=== PATIENT | female | born 1955 | race Two or more races ===

== ENCOUNTER → 2025-01-17 | Outpatient (CLI) | payer MEDICAID, SELFPAY ==
--- NOTE | 2025-01-17 14:38 | XR_ITS ---
Examination: Abdomen sonogram, Limited Date and time of exam: January 17, 2025 1508 hrs. Indications: Abdominal pain and distention this week Technique: Real-time hunter scale transabdominal sonographic images of the upper abdomen obtained. Findings: Minimal ascitic fluid Impression: Minimal ascitic fluid
== END | disposition home or self-care (01) ==
LOC: SDIM 14:35 → SIRX 15:03
PROVIDERS: PCP Internal Medicine Nephrology; Referring Provider Internal Medicine Nephrology; Visit Provider Internal Medicine Nephrology
DX: R18.8 Other ascites (principal); Z53.8 Procedure and treatment not carried out for other reasons
CPT/HCPCS: 76705

== ENCOUNTER 2025-02-19 15:17 | Inpatient (IN) | payer MEDICAID, SELFPAY ==
[2025-02-19] VITALS (10 sets, daily range): BP systolic 180–211; BP diastolic 76–133; PULSE 65–83; RESP 16–97; TEMP 36.6–36.7; O2SAT 95–97; BMI 30.9
--- NOTE | 2025-02-19 15:41 | EKG_ITS ---
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
--- NOTE | 2025-02-19 15:41 | XR_ITS ---
Examination: PA lateral chest 2 views Technique: Upright PA lateral chest 2 views Exam date and time: March 21, 2025 1626 hrs. Indications: Chest pain shortness of breath today. Findings: Moderate CHF Mild enlargement cardiac contour Prominent vascular congestion with perihilar basilar edema Bilateral moderate to large pleural effusions Impression: Moderate CHF
--- NOTE | 2025-02-19 15:41 | PD.EDRME ---
Rapid Medical Screening Exam RME Arrival date/time: 02/19/25 15:17 69-year-old female with a history of hyperlipidemia, hypertension, type 2 diabetes presents to the emergency room with a chief complaint of bilateral lower extremity swelling, shortness of breath, increased fatigue x 3 days. I have greeted and performed a focused initial assessment of this patient. A comprehensive ED assessment and evaluation of the patient, analysis of all test results, and completion of the medical decision making process will be conducted by additional ED providers. Chief Complaint: General Adult/Misc Complain Time Seen by Provider: 02/19/25 15:18 Vital signs: Vital Signs Temperature 97.8 F 02/19/25 15:24 Pulse Rate 65 02/19/25 15:24 Respiratory Rate 18 02/19/25 15:24 Blood Pressure 194/76 H 02/19/25 15:24 Pulse Oximetry (%) 95 02/19/25 15:24 Oxygen Delivery Method Room Air 02/19/25 15:24 Vital signs reviewed by provider: Yes
[2025-02-19 16:13] LABS: Basophils % (Auto) 0 % (0-2.5); Eosinophils # (Auto) 0.1 Thou/mm3 (0.0-0.5); Eosinophils % (Auto) 1 % (0-10); Hematocrit 29.5 % (36.0-46.0); Hemoglobin 10.3 g/dL (12.0-16.0); Immature Granulocytes % (Auto) 0 % (0-0); Immature Granulocytes Auto 0.01 Thou/mm3 (0.00-0.00); Lymphocytes # (Auto) 1.1 Thou/mm3 (1.0-4.8); Lymphocytes % (Auto) 16 % (10-50); Mean Corpuscular HGB Conc 34.9 g/dl (31.0-37.0); Mean Corpuscular Hemoglobin 30.5 pg (25.0-35.0); Mean Corpuscular Volume 87 fL (80-100); Monocytes # (Auto) 0.5 Thou/mm3 (0.0-0.8); Monocytes % (Auto) 7 % (0-12); Neutrophils # (Auto) 5.2 Thou/mm3 (1.8-7.7); Neutrophils % (Auto) 76 % (37-80); Nucleated Red Blood Cell % 0 /100 WBC (0); Platelet Count 185 Thou/mm3 (140-440); RDW Standard Deviation 40.6 fL (36.4-46.3); Red Blood Count 3.38 Miln/mm3 (4.00-5.20); White Blood Count 6.8 Thou/mm3 (3.6-11.0)
[2025-02-19 16:32] LABS: INR 1.2 (0.9-1.3); Partial Thromboplastin Time 30.2 Seconds (22.0-36.0); Prothrombin Time 13.3 Seconds (9.0-12.2)
[2025-02-19 16:53] LABS: Alanine Aminotransferase 8 U/L (10-49); Albumin/Globulin Ratio 1.7 (1.2-2.2); Alkaline Phosphatase 78 U/L (46-116); Anion Gap 10 (7-16); Aspartate Amino Transferase 16 U/L (0-34); BUN/Creatinine Ratio 18 Ratio (12-20); Bilirubin,Total 0.6 mg/dL (0.3-1.2); Blood Urea Nitrogen 52 mg/dL (9-23); Calcium 8.4 mg/dL (8.3-10.6); Calcium (Corrected) 8.4 mg/dL (8.5-10.1); Chloride 90 mMol/L (98-107); Creatinine (Component) 2.9 mg/dL (0.6-1.3); Estimated Creatinine Clearance 15.8 mL/min (>60); Globulin 2.3 gm/dL (2.3-3.5); Glucose 125 mg/dL (74-106); LDH (Lactate Dehydrogenase) 282 U/L (120-246); Magnesium 1.4 mg/dL (1.6-2.6); Osmolality,Calculated 264 (275-295); Potassium 3.2 mMol/L (3.4-5.1); Sodium 124 mMol/L (136-145); Total Protein 6.3 gm/dL (5.7-8.2); Troponin I 0.043 ng/mL (0.0-0.045); eGFR 17 See Note
[2025-02-19 16:55] LABS: B-Type Natriuretic Peptide > 3280 pg/mL (0-100)
[2025-02-19 17:28] LABS: Collection Type, Urine Clean Catch
[2025-02-19 17:41] LABS: Bilirubin,Urine Negative (Negative); Blood,Urine 1+ (Negative); Clarity,Urine Clear (Clear/Hazy); Color,Urine Lt-Yellow (Lt Yel-Yel); Glucose, Urine Negative (Negative); Ketones,Urine Negative (Negative); Leukocyte Esterase,Urine Positive (Negative); Nitrite,Urine Negative (Negative); Protein,Urine 3+ (Neg - Trace); RBC,Urine 7 /hpf (0-3); Specific Gravity,Urine 1.012 (1.001-1.035); Squamous Epithelial Cell,Urine 2 /hpf (0-5); Urobilinogen,Urine Negative mg/dL (0.0-1.0); WBC,Urine 24 /hpf (0-5)
--- NOTE | 2025-02-19 18:31 | PD.EDADULT ---
ED General RME/HPI General Chief complaint: General Adult/Misc Complain Stated complaint: SENT BY PCP DUE TO BLE EDEMA Time Seen by Provider: 02/19/25 15:18 Arrival date/time: 02/19/25 15:17 RME / HPI RME / HPI narrative: 69-year-old female with a history of hyperlipidemia, hypertension, type 2 diabetes, history of combined mild systolic and diastolic CHF, EF 50% on last echo, mild pulm hypertension, chronic renal sufficiency, non-STEMI May 2024, presented to the emergency department with bilateral lower extremity swelling. Related Data Home Medications ?Medication ?Instructions ?Recorded ?Confirmed metformin 500 mg tablet 500 mg PO BID 03/29/24 05/10/24 atorvastatin 40 mg tablet 40 mg PO QDAY 06/19/24 06/19/24 empagliflozin 10 mg tablet 10 mg PO QDAY 06/19/24 06/19/24 (Jardiance) levothyroxine 50 mcg capsule 50 mcg PO QDAY 06/19/24 06/19/24 sitagliptin phosphate 50 mg tablet 50 mg PO QDAY 06/19/24 06/19/24 (Januvia) vitamin B complex-vitamin C-folic 1 tab PO QDAY 06/19/24 06/19/24 acid 0.8 mg tablet (Renal-Adriel) Previous Rx's ?Medication ?Instructions ?Recorded aluminum-mag hydroxide-simethicone 30 ml PO TID #3,000 mL 04/18/24 200 mg-200 mg-20 mg/5 mL oral susp (Mag-Al Plus) blood sugar diagnostic (Accu-Chek #100 04/18/24 Guide test strips) lancets-blood glucose test #1 04/18/24 strips-pen needles with gauze kit pantoprazole 40 mg tablet,delayed 40 mg PO QDAY #30 tabs 04/18/24 release pen needle, diabetic 29 gauge x #100 04/18/24 1/2 (BD Ultra-Fine Original Pen Needle) sitagliptin phosphate 50 mg tablet 50 mg PO QDAY #30 tabs 04/18/24 (Januvia) doxycycline hyclate 100 mg tablet 100 mg PO BID #10 tabs 05/13/24 furosemide 40 mg tablet (Lasix) 40 mg PO QDAY #30 tabs 05/13/24 carvedilol 6.25 mg tablet 6.25 mg PO BID CHF #60 tabs 06/19/24 Allergies Allergy/AdvReac Type Severity Reaction Status Date / Time quetiapine (From Seroquel) AdvReac Severe hypothermia Verified 06/19/24 11:05 Review of Systems Review of Systems Systems Reviewed: All systems reviewed, normal except as documented Course Course Course Narrative: CXR is ordered for determining the etiology of Quality Measures none Orders Category Date Time Status EKG (ED ONLY) *Do not use* NOW Care 02/19/25 15:41 Completed EKG (ED Only) Stat Exams 02/19/25 15:41 Draft XR chest 2V Stat Exams 02/19/25 15:41 Completed B-Type Natriuretic Peptide Stat Lab 02/19/25 15:58 Completed CBC Stat Lab 02/19/25 15:58 Completed Comprehensive Metabolic Panel Stat Lab 02/19/25 15:58 Completed LDH (Lactate Dehydrogenase) Stat Lab 02/19/25 15:58 Completed Magnesium Stat Lab 02/19/25 15:58 Completed Partial Thromboplastin Time Stat Lab 02/19/25 15:58 Completed Prothrombin Time with INR Stat Lab 02/19/25 15:58 Completed Troponin I Stat Lab 02/19/25 15:58 Completed Urinalysis Stat Lab 02/19/25 17:02 Completed Vital Signs Vital signs: Vital Signs Temperature 97.8 F 02/19/25 15:24 Pulse Rate 65 02/19/25 15:24 Respiratory Rate 18 02/19/25 15:24 Blood Pressure 194/76 H 02/19/25 15:24 Pulse Oximetry (%) 95 02/19/25 15:24 Oxygen Delivery Method Room Air 02/19/25 15:24 [facility] Patient data External records reviewed:: [facility] previous records (Per chart review, patient was admitted here on 05/09/24 for acute hyponatremia.) Clinical information provided by:: patient Social determinants that could affect healthcare access:: none Patient has the following chronic illnesses:: DM, HTN, HLD, history of combined mild systolic and diastolic CHF, EF 50% on last echo, mild pulm hypertension, chronic renal sufficiency, non-STEMI May 2024 How is presenting disease/condition affected by chronic disease/condition?: exacerbated by Evaluation data The following diagnostics were reviewed and interpreted by me:: lab results, radiology exam(s) and EKG tracing(s) Lab and/or radiology exams considered but not ordered:: none Interpretation Summary: WBC count is normal, HnH is stable, Sodium is 124, Potassium is 3.2, Chloride is 90, Creatinine is 2.9, BUN is 52, BNP is greater than 3280, according to my interpretation. EKG [facility] Report Signed Patient: BARBARA SMITH. Record#: [id number] Birthdate: 1955 Age/Sex: 69 / F Location: [facility] Attending Dr: Ordering Physician: Boubacar Corcoran Date of Service: 02/19/25 Procedure(s): XR chest 2V Accession Number(s): [id number] cc: Boubacar Corcoran; Mundo Allen MD; Leon Ro MD~ Examination: PA lateral chest 2 views Technique: Upright PA lateral chest 2 views Exam date and time: March 21, 2025 1626 hrs. Indications: Chest pain shortness of breath today. Findings: Moderate CHF Mild enlargement cardiac contour Prominent vascular congestion with perihilar basilar edema Bilateral moderate to large pleural effusions Impression: Moderate CHF Dictated By: Leon Ro MD Signed By: <Electronically signed by Leon Ro MD in OV> 02/19/25 1738 Medications Medications considered but not ordered:: none Medical Decision Making Lab Data 02/19/25 15:58 02/19/25 15:58 Labs: Lab Results 02/19/25 02/19/25 Range/Units 15:58 17:02 WBC 6.8 (3.6-11.0) Thou/mm3 RBC 3.38 L (4.00-5.20) Miln/mm3 Hgb 10.3 L (12.0-16.0) g/dL Hct 29.5 L (36.0-46.0) % MCV 87 (80-100) fL MCH 30.5 (25.0-35.0) pg MCHC 34.9 (31.0-37.0) g/dl RDW Std Deviation 40.6 (36.4-46.3) fL Plt Count 185 (140-440) Thou/mm3 Neut % (Auto) 76 (37-80) % Lymph % (Auto) 16 (10-50) % Waldo % (Auto) 7 (0-12) % Eos % (Auto) 1 (0-10) % Baso % (Auto) 0 (0-2.5) % Neut # (Auto) 5.2 (1.8-7.7) Thou/mm3 Lymph # (Auto) 1.1 (1.0-4.8) Thou/mm3 Waldo # (Auto) 0.5 (0.0-0.8) Thou/mm3 Eos # (Auto) 0.1 (0.0-0.5) Thou/mm3 Baso # (Auto) 0.0 (0.0-0.2) Thou/mm3 Immature Gran # (Auto) 0.01 H (0.00-0.00) Thou/mm3 Absolute Nucleated RBC 0.00 (0.00-0.00) Thou/mm3 Immature Gran % 0 (0-0) % Nucleated RBC % 0 (0) /100 WBC PT 13.3 H (9.0-12.2) Seconds INR 1.2 (0.9-1.3) APTT 30.2 (22.0-36.0) Seconds Sodium 124 L (136-145) mMol/L Potassium 3.2 L (3.4-5.1) mMol/L Chloride 90 L (98-107) mMol/L Carbon Dioxide 24.0 (20.0-31.0) mMol/L Anion Gap 10 (7-16) BUN 52 H (9-23) mg/dL Creatinine 2.9 H (0.6-1.3) mg/dL Estim Creat Clear Calc 15.8 L (>60) mL/min eGFR 17 L (60 - ) See Note BUN/Creatinine Ratio 18 (12-20) Ratio Glucose 125 H (74-106) mg/dL Calculated Osmolality 264 L (275-295) Calcium 8.4 (8.3-10.6) mg/dL Corrected Calcium 8.4 L (8.5-10.1) mg/dL Magnesium 1.4 L (1.6-2.6) mg/dL Total Bilirubin 0.6 (0.3-1.2) mg/dL AST 16 (0-34) U/L ALT 8 L (10-49) U/L Alkaline Phosphatase 78 (46-116) U/L Lactate Dehydrogenase 282 H (120-246) U/L Troponin I 0.043 (0.0-0.045) ng/mL B-Natriuretic Peptide > 3280 H* (0-100) pg/mL Total Protein 6.3 (5.7-8.2) gm/dL Albumin 4.0 (3.4-4.8) gm/dL Globulin 2.3 (2.3-3.5) gm/dL Albumin/Globulin Ratio 1.7 (1.2-2.2) Ur Collection Type Clean Catch Urine Color Lt-Yellow (Lt Yel-Yel) Urine Clarity Clear (Clear/Hazy) Urine pH 7.0 (5.0-7.0) Ur Specific [place]ard 1.012 (1.001-1.035) Urine Protein 3+ A (Neg - Trace) Urine Glucose (UA) Negative (Negative) Urine Ketones Negative (Negative) Urine Blood 1+ A (Negative) Urine Nitrite Negative (Negative) Urine Bilirubin Negative (Negative) Urine Urobilinogen (Auto) Negative (0.0-1.0) mg/dL Ur Leukocyte Esterase Positive (Negative) Urine RBC 7 H (0-3) /hpf Urine WBC 24 H (0-5) /hpf Ur Squamous Epith Cells 2 (0-5) /hpf Urine Bacteria None (None) Discharge Plan Prescriptions/Referrals Prescriptions/Med Rec: No Action levothyroxine 50 mcg capsule 50 mcg PO QDAY Renal-Adriel 0.8 mg tablet 1 tab PO QDAY Jardiance 10 mg tablet 10 mg PO QDAY atorvastatin 40 mg tablet 40 mg PO QDAY Januvia 50 mg tablet 50 mg PO QDAY carvedilol 6.25 mg tablet 6.25 mg PO BID MDD 12.5 mg Qty: 60 2RF Rx Instructions: must administer with a meal/food metformin 500 mg Tablet 500 mg PO BID alum-mag hydroxide-simeth [Mag-Al Plus] 200-200-20 mg/5 mL Suspension 30 ml PO TID Qty: 3000 0RF Januvia 50 mg tablet 50 mg PO QDAY Qty: 30 0RF (DME) lancet-gluc rzvhq-kyyhqi-ywnvx Kit See Rx Instructions .Route Qty: 1 0RF Rx Instructions: As directed (DME) pen needle, diabetic [BD Ultra-Fine Orig Pen Needle] 29 gauge x 1/2 needle See Rx Instructions .Route Qty: 100 0RF Rx Instructions: As directed (DME) Accu-Chek Guide test strips Strip See Rx Instructions .Route Qty: 100 0RF Rx Instructions: As directed pantoprazole 40 mg tablet,delayed release (DR/EC) 40 mg PO QDAY Qty: 30 0RF doxycycline hyclate 100 mg tablet 100 mg PO BID Qty: 10 0RF furosemide [Lasix] 40 mg tablet 40 mg PO QDAY Qty: 30 2RF Referrals: Mundo Allen MD [Primary Care Provider] - In 1 week Patient/Caregiver Discharge Instructions Print Language: Grenadian
--- NOTE | 2025-02-19 18:54 | PC.NURSE ---
INFORMED DR. BAER OF PT'S BP 205/83.
--- NOTE | 2025-02-19 21:39 | PD.EDADULT ---
ED General RME/HPI General Chief complaint: General Adult/Misc Complain Stated complaint: SENT BY PCP DUE TO BLE EDEMA Time Seen by Provider: 02/19/25 15:18 Arrival date/time: 02/19/25 15:17 CC: Coughing until throwing up with shortness of breath HPI ongoing for the last 4 days. The patient has had progressive worsening of swelling in her lower legs. Family ember state that she has been on 80 mg of Lasix twice a day to try and get some of the fluid off of her and it has succeeded for the most part now she has begun to cough to the point where she throws up. There is been no p.o. food intake in the last 4 days. Patient is awake alert with oxygen saturation is 97% on room air however found member states she cannot walk 10 to 15 feet without becoming short of breath. She was sent over by [facility] for her hypertension as well. Patient is taken no medications this evening. RME / HPI RME / HPI narrative: 69-year-old female with a history of hyperlipidemia, hypertension, type 2 diabetes, history of combined mild systolic and diastolic CHF, EF 50% on last echo, mild pulm hypertension, chronic renal sufficiency, non-STEMI May 2024, presented to the emergency department with bilateral lower extremity swelling. Related Data Home Medications ?Medication ?Instructions ?Recorded ?Confirmed metformin 500 mg tablet 500 mg PO BID 03/29/24 05/10/24 atorvastatin 40 mg tablet 40 mg PO QDAY 06/19/24 06/19/24 empagliflozin 10 mg tablet 10 mg PO QDAY 06/19/24 06/19/24 (Jardiance) levothyroxine 50 mcg capsule 50 mcg PO QDAY 06/19/24 06/19/24 sitagliptin phosphate 50 mg tablet 50 mg PO QDAY 06/19/24 06/19/24 (Januvia) vitamin B complex-vitamin C-folic 1 tab PO QDAY 06/19/24 06/19/24 acid 0.8 mg tablet (Renal-Adriel) Previous Rx's ?Medication ?Instructions ?Recorded aluminum-mag hydroxide-simethicone 30 ml PO TID #3,000 mL 04/18/24 200 mg-200 mg-20 mg/5 mL oral susp (Mag-Al Plus) blood sugar diagnostic (Accu-Chek #100 ea 04/18/24 Guide test strips) lancets-blood glucose test #1 ea 04/18/24 strips-pen needles with gauze kit pantoprazole 40 mg tablet,delayed 40 mg PO QDAY #30 tabs 04/18/24 release pen needle, diabetic 29 gauge x #100 ea 04/18/24 1/ (BD Ultra-Fine Original Pen Needle) sitagliptin phosphate 50 mg tablet 50 mg PO QDAY #30 tabs 04/18/24 (Januvia) doxycycline hyclate 100 mg tablet 100 mg PO BID #10 tabs 05/13/24 furosemide 40 mg tablet (Lasix) 40 mg PO QDAY #30 tabs 05/13/24 carvedilol 6.25 mg tablet 6.25 mg PO BID CHF #60 tabs 06/19/24 Allergies Allergy/AdvReac Type Severity Reaction Status Date / Time quetiapine (From Seroquel) AdvReac Severe hypothermia Verified 06/19/24 11:05 Review of Systems Review of Systems Narrative Review of Systems: GEN: No fever, no chills, no weight loss EYES: No discharge, no visual changes, no pain HEENT: No ear pain, no congestion, no sore throat PULM: + shortness of breath, + cough, no congestion CV: No chest pain, no dyspnea on exertion, no palpitations GI: No nausea, no vomiting, no diarrhea, no pain, no constipation : No frequency, no urgency, no dysuria MUSC/SKEL: No joint pain, no back pain SKIN: No rash PSYCH: No hallucinations, no depression HEME/LYMPH: No easy bleeding or bruising tendencies NEURO: No weakness, no headache Past Medical History Past Medical History CARDIAC: Positive Hypercholesterolemia, Congestive Heart Failure and Hypertension RESPIRATORY: Negative Chronic Obstructive Pulmonary Disease (COPD) GASTROINTESTINAL: Positive Cirrhosis and Gastrointestinal Bleed GENITOURINARY: Negative Renal Disease ENDOCRINE: Positive Endocrine Disorders, Diabetes Mellitus Type 2 and Hypothyroidism; Negative Diabetes Mellitus Type 1 Social History SMOKING STATUS: Never smoker SUBSTANCE USE: does not use ED Exam Narrative Physical exam: [General: Not in any acute distress Head normocephalic HEENT: Within acceptable limits Neck is supple nontender Chest equal chest rise nontender to palpation Respiratory: Poor respiratory effort occasional cough. Diminished in the bases. Clear to the upper lobes. CV: Rate rhythm is regular no murmurs rubs or clicks Abdomen is soft nontender no masses positive bowel sounds all 4 quadrants Back: No CVA tenderness no spinous process tenderness from cervical spine thoracic and lumbar spine Skin: Intact no petechiae rash induration ulceration or crepitus Extremities: Moving all extremity against resistance cap refill less than 2 seconds neurosensory intact, pitting edema in the bilateral lower extremities. Neuro: Awake alert oriented x2, person and place, Glascow coma 15 no focal deficits] Course Course Course Narrative: CXR is ordered for determining the etiology of Quality Measures VTE prophylaxis Orders Category Date Time Status Admit to Inpatient Status Routine Admission 02/19/25 21:57 Active Patient Condition Routine Admission 02/19/25 21:57 Ordered Activity as Tolerated Routine Care 02/19/25 21:57 Ordered Bedside Blood Glucose ACHS Care 02/19/25 22:00 Active EKG (ED ONLY) *Do not use* NOW Care 02/19/25 15:41 Completed Fluid restriction QDAY Care 02/19/25 21:58 Active Notify provider NEEDED Care 02/19/25 21:57 Active Saline [Insert IV] NOW Care 02/19/25 21:40 Active Diet Carbohydrate Consistent Diet 02/20/25 Breakfast Active EKG (ED Only) Stat Exams 02/19/25 15:41 Draft XR chest 2V Stat Exams 02/19/25 15:41 Completed B-Type Natriuretic Peptide Stat Lab 02/19/25 15:58 Completed Basic Metabolic Panel AM DRAW Lab 02/20/25 04:48 Completed Basic Metabolic Panel AM DRAW Lab 02/21/25 05:00 Ordered Basic Metabolic Panel AM DRAW Lab 02/22/25 05:00 Ordered CBC AM DRAW Lab 02/20/25 04:48 Completed CBC AM DRAW Lab 02/21/25 05:00 Ordered CBC AM DRAW Lab 02/22/25 05:00 Ordered CBC Stat Lab 02/19/25 15:58 Completed Comprehensive Metabolic Panel Stat Lab 02/19/25 15:58 Completed LDH (Lactate Dehydrogenase) Stat Lab 02/19/25 15:58 Completed Magnesium Stat Lab 02/19/25 15:58 Completed Partial Thromboplastin Time Stat Lab 02/19/25 15:58 Completed Prothrombin Time with INR Stat Lab 02/19/25 15:58 Completed Troponin I Stat Lab 02/19/25 15:58 Completed Urinalysis Stat Lab 02/19/25 17:02 Completed Acetaminophen Tab [Tylenol Tab] Med 02/19/25 21:56 Active 650 mg PO Q6H PRN Atorvastatin Calcium [Lipitor] Med 02/20/25 21:00 Active 40 mg PO HS Dextrose 50% Syr [D50w Syringe Abboject] Med 02/19/25 22:00 Active 25 ml IV Q15MIN PRN Dextrose 50% Syr [D50w Syringe Abboject] Med 02/19/25 22:00 Active 50 ml IV Q15MIN PRN Furosemide Inj [Lasix Inj] Med 02/19/25 22:00 Active 40 mg IVP BIDD Glucagon Inj Med 02/19/25 22:00 Active 1 mg IM Q15MIN PRN Heparin Inj Med 02/19/25 22:00 Active 5,000 unit SC Q12H INSULIN LISPRO (AdmeLOG) [HumaLOG] Med 02/20/25 07:30 Active See Protocol SC AC Levothyroxine Sodium [Synthroid] Med 02/20/25 06:00 Active 50 mcg PO ACBR Magnesium Sulfate 4 GM Ivpb [Magnesium Sulfate Ivpb] Med 02/19/25 22:01 Discontinued 4 gm in 50 ml IV X1 Pantoprazole [Protonix] Med 02/20/25 09:00 Active 40 mg PO QDAY Polyeth Glycol/Propylene Glyco [Miralax Pkt] Med 02/19/25 22:14 Active 17 gm PO QDAY PRN Potassium Chloride [K-Dur] Med 02/20/25 08:00 Active 20 meq PO BIDWM Senna [Senokot] Med 02/19/25 22:14 Discontinued 1 tab PO QDAY PRN Senna [Senokot] Med 02/19/25 22:15 Active 1 tab PO QDAY PRN Sevelamer Carbonate [Renvela] Med 02/20/25 08:00 Active 800 mg PO TIDWM carVEDILOL [Coreg] Med 02/20/25 08:00 Active 6.25 mg PO BIDWM hydrALAZINE HCL [Apresoline] Med 02/20/25 06:00 Active 10 mg PO TID hydrALAZINE INJ [Apresoline Inj] Med 02/19/25 22:02 Active 10 mg IV Q6H PRN hydrALAZINE INJ [Apresoline Inj] Med 02/19/25 21:40 Discontinued 10 mg IV X1 ONE Code Status Routine Oth 02/19/25 21:56 Ordered Oxygen Delivery DAILY RT 02/19/25 21:57 Active Vital Signs Vital signs: Vital Signs Temperature 97.8 F 02/19/25 15:24 Pulse Rate 65 02/19/25 15:24 Respiratory Rate 18 02/19/25 15:24 Blood Pressure 194/76 H 02/19/25 15:24 Pulse Oximetry (%) 95 02/19/25 15:24 Oxygen Delivery Method Room Air 02/19/25 15:24 [facility] Patient data External records reviewed:: [facility] previous records Clinical information provided by:: patient Social determinants that could affect healthcare access:: none Patient has the following chronic illnesses:: CHF hyperlipidemia hypertension type 2 diabetes end-stage liver disease with esophageal varices How is presenting disease/condition affected by chronic disease/condition?: uneffected by Evaluation data The following diagnostics were reviewed and interpreted by me:: lab results and radiology exam(s) Lab and/or radiology exams considered but not ordered:: CBC shows no leukocytosis anemia hemoglobin 10.3 a crit of 29.5. No thrombocytopenia and Coags show PT of 13.3 INR and PTT within acceptable limits CMP shows sodium 124 potassium 3.0 chloride of 90 BUN of 52 creatinine of 2.9 glucose of 125 corrected calcium of 8.4 mag of 1.4 T. bili is normal no transaminitis. LDH at 282. Troponin 0.043 BNP greater than 30-80. Urine shows 3+ protein 1+ blood 24 WBCs 7 RBCs no bacteria. EKG at 1544 shows a ventricular rate of 64 ME interval of 168 QRS of 88 QTc of [address] segment changes. Interpretation Summary: Patient has a congestive heart failure with the highest BNP thus far and her medical history. Patient also has a worsening CKD at 52 and 2.9. At this time patient warrants admission for diuresis with poor renal function. Patient's case discussed with Dr. Aburto who agrees to accept the patient for admission. Medications Medications considered but not ordered:: None Medication administrations:: Medication Administration History Acetaminophen (Acetaminophen 325 Mg Tablet) 650 mg PO Q6H PRN PRN Reason: Fever >101.5 Stop: 03/21/25 21:55 Last Admin: 02/20/25 19:47 Dose: 650 mg Documented By: SS Atorvastatin Calcium (Atorvastatin Calcium 20 Mg Tablet) 40 mg PO HS [facility] Stop: 03/22/25 20:59 Last Admin: 02/20/25 21:29 Dose: 40 mg Documented By: KINGSLEY Carvedilol (Carvedilol 3.125 Mg Tablet) 6.25 mg PO BIDWM [facility] Stop: 03/22/25 07:59 Last Admin: 02/20/25 16:38 Dose: 6.25 mg Documented By: Admin: 02/20/25 08:27 Dose: 6.25 mg Documented By: JALEESA Dextrose (Dextrose 50%-Water Inj 50 Ml Syringe) 25 ml IV Q15MIN PRN PRN Reason: BG 50-70 responsive npo pt Stop: 03/21/25 21:59 Dextrose (Dextrose 50%-Water Inj 50 Ml Syringe) 50 ml IV Q15MIN PRN PRN Reason: BG <50 OR BG <70 & pt unresponsive Stop: 03/21/25 21:59 Furosemide (Furosemide Inj 10 Mg/Ml 4ml Vial) 40 mg IVP BIDD [facility] Stop: 03/21/25 21:59 Last Admin: 02/20/25 17:00 Dose: 40 mg Documented By: Admin: 02/20/25 06:11 Dose: 40 mg Documented By: Admin: 02/19/25 22:51 Dose: 40 mg Documented By: JUSTIN Glucagon (Glucagon Inj 1 Mg Vial) 1 mg IM Q15MIN PRN PRN Reason: BG <70, and no IV access Heparin Sodium (Porcine) (Heparin Sod Inj 5000 Unit/Ml Vial) 5,000 unit SC Q12H [facility] Stop: 03/05/25 21:59 Last Admin: 02/20/25 21:30 Dose: 5,000 unit Documented By: KINGSLEY Co-signed By: EFREN Admin: 02/20/25 10:23 Dose: 5,000 unit Documented By: JALEESA Co-signed By: [place] Admin: 02/19/25 22:51 Dose: 5,000 unit Documented By: JUSTIN Co-signed By: Hydralazine HCl (Hydralazine Inj 20 Mg/Ml Vial) 10 mg IV Q6H PRN PRN Reason: SBP>160 Stop: 03/21/25 22:14 Last Admin: 02/20/25 04:38 Dose: 10 mg Documented By: Admin: 02/19/25 22:48 Dose: 10 mg Documented By: EE Hydralazine HCl (Hydralazine Hcl 10 Mg Tablet) 10 mg PO TID [facility] Stop: 03/22/25 05:59 Last Admin: 02/20/25 21:30 Dose: 10 mg Documented By: Admin: 02/20/25 13:03 Dose: 10 mg Documented By: Admin: 02/20/25 06:11 Dose: 10 mg Documented By: SS Insulin Human Lispro (Insulin Lispro (Admelog) 1 Unit/0.01 Ml Unit) 0 unit SC [facility]; Protocol Stop: 03/22/25 07:29 Last Admin: 02/20/25 16:30 Dose: Not Given Documented By: JALEESA Non-Admin Reason: Per Protocol Admin: 02/20/25 11:43 Dose: Not Given Documented By: JALEESA Non-Admin Reason: Per Protocol Admin: 02/20/25 07:28 Dose: Not Given Documented By: JALEESA Non-Admin Reason: Per Protocol Levothyroxine Sodium (Levothyroxine Sodium 25 Mcg Tablet) [facility] Stop: 03/22/25 05:59 Last Admin: 02/20/25 06:11 Dose: 50 mcg Documented By: KINGSLEY Metoclopramide HCl (Metoclopramide Inj 5 Mg/Ml Vial 2 Ml) 10 mg IVP Q6HR PRN; Protocol PRN Reason: NAUSEA OR VOMITING Stop: 03/22/25 12:58 Last Admin: 02/20/25 19:47 Dose: 10 mg Documented By: Admin: 02/20/25 13:08 Dose: 10 mg Documented By: JALEESA Nifedipine (Nifedipine Xl 30 Mg Tabcr) 60 mg PO QDAY [facility] Stop: 03/21/25 22:44 Last Admin: 02/20/25 08:28 Dose: 60 mg Documented By: Admin: 02/20/25 01:30 Dose: 60 mg Documented By: SS Ondansetron HCl (Ondansetron Inj 2 Mg/Ml Inj 2 Ml) 4 mg IV Q8HR PRN; Protocol PRN Reason: NAUSEA OR VOMITING Stop: 03/22/25 02:13 Last Admin: 02/20/25 02:36 Dose: 4 mg Documented By: KINGSLEY Pantoprazole Sodium (Pantoprazole 40 Mg Tablet) 40 mg PO QDAY [facility] Stop: 03/22/25 08:59 Last Admin: 02/20/25 08:28 Dose: 40 mg Documented By: VL Polyethylene Glycol (Polyethylene Glycol 17 Gm Packet) 17 gm PO QDAY PRN PRN Reason: constipation Stop: 03/22/25 08:59 Potassium Chloride (Potassium Chloride 20 Meq Tabcr) 20 meq PO BIDWM [facility]RES Stop: 03/22/25 07:59 Last Admin: 02/20/25 16:38 Dose: 20 meq Documented By: Admin: 02/20/25 08:27 Dose: 20 meq Documented By: VL Sennosides (Senna Tablet) 1 tab PO QDAY PRN; Protocol PRN Reason: CONSTIPATION Stop: 03/21/25 22:13 Sevelamer Carbonate (Sevelamer Carbonate 800 Mg Tablet) 800 mg PO TIDWM [facility] Stop: 03/22/25 07:59 Last Admin: 02/20/25 16:38 Dose: 800 mg Documented By: Admin: 02/20/25 12:44 Dose: 800 mg Documented By: Admin: 02/20/25 08:27 Dose: 800 mg Documented By: VL Discontinued Medications Atorvastatin Calcium (Atorvastatin Calcium 20 Mg Tablet) 20 mg PO HS [facility] Stop: 03/22/25 20:59 Hydralazine HCl (Hydralazine Inj 20 Mg/Ml Vial) 10 mg IV X1 ONE Stop: 02/19/25 21:41 Last Admin: 02/19/25 21:47 Dose: 10 mg Documented By: CCT Magnesium Sulfate (Magnesium Sulfate Ivpb) 4 gm in 50 mls @ 12.5 mls/hr IV X1 ONE Stop: 02/20/25 02:00 Last Admin: 02/19/25 23:09 Dose: 12.5 mls/hr Documented By: EE Potassium Chloride (Kcl Ivpb) 10 meq in 100 mls @ 100 mls/hr IV Q1H [facility]RES Stop: 02/20/25 06:13 Last Admin: 02/20/25 06:12 Dose: 100 mls/hr Documented By: Infusion: 02/20/25 05:52 Dose: Infused Documented By: Admin: 02/20/25 04:52 Dose: 100 mls/hr Documented By: Infusion: 02/20/25 04:50 Dose: Infused Documented By: Admin: 02/20/25 03:50 Dose: 100 mls/hr Documented By: Infusion: 02/20/25 03:37 Dose: Infused Documented By: Admin: 02/20/25 02:37 Dose: 100 mls/hr Documented By: KINGSLEY Potassium Chloride (Kcl Ivpb) 10 meq in 100 mls @ 100 mls/hr IV Q1H ONE Stop: 02/20/25 09:21 Last Admin: 02/20/25 08:43 Dose: 75 mls/hr Documented By: JALEESA Ondansetron HCl (Ondansetron Inj 2 Mg/Ml Inj 2 Ml) 4 mg IV X1 ONE; Protocol Stop: 02/20/25 08:21 Last Admin: 02/20/25 08:28 Dose: 4 mg Documented By: JALEESA Sennosides (Senna Tablet) 1 tab PO QDAY PRN; Protocol PRN Reason: CONSTIPATION Stop: 03/21/25 22:13 None Consultations Consultation(s) initiated? (list below): No Diagnosis Differential Diagnosis ED Complaint MDM: ACS CO CHF pneumonia Most likely diagnosis given after review of the tests above:: CHF fluid overload CO Admission Indicated Admission indicated?: indicated Explain why admission is indicated or not indicated:: Quires further medical management Admission Request Was there a request for admission?: No Disposition Plan Disposition Plan: Admit Medical Decision Making Differential Diagnosis Differential Diagnosis: ACS CO CHF pneumonia Lab Data 02/20/25 04:48 02/20/25 04:48 Labs: Lab Results 02/19/25 02/19/25 Range/Units 15:58 17:02 WBC 6.8 (3.6-11.0) Thou/mm3 RBC 3.38 L (4.00-5.20) Miln/mm3 Hgb 10.3 L (12.0-16.0) g/dL Hct 29.5 L (36.0-46.0) % MCV 87 (80-100) fL MCH 30.5 (25.0-35.0) pg MCHC 34.9 (31.0-37.0) g/dl RDW Std Deviation 40.6 (36.4-46.3) fL Plt Count 185 (140-440) Thou/mm3 Neut % (Auto) 76 (37-80) % Lymph % (Auto) 16 (10-50) % [place] % (Auto) 7 (0-12) % Eos % (Auto) 1 (0-10) % Baso % (Auto) 0 (0-2.5) % Neut # (Auto) 5.2 (1.8-7.7) Thou/mm3 Lymph # (Auto) 1.1 (1.0-4.8) Thou/mm3 [place] # (Auto) 0.5 (0.0-0.8) Thou/mm3 Eos # (Auto) 0.1 (0.0-0.5) Thou/mm3 Baso # (Auto) 0.0 (0.0-0.2) Thou/mm3 Immature Gran # (Auto) 0.01 H (0.00-0.00) Thou/mm3 Absolute Nucleated RBC 0.00 (0.00-0.00) Thou/mm3 Immature Gran % 0 (0-0) % Nucleated RBC % 0 (0) /100 WBC PT 13.3 H (9.0-12.2) Seconds INR 1.2 (0.9-1.3) APTT 30.2 (22.0-36.0) Seconds Sodium 124 L (136-145) mMol/L Potassium 3.2 L (3.4-5.1) mMol/L Chloride 90 L (98-107) mMol/L Carbon Dioxide 24.0 (20.0-31.0) mMol/L Anion Gap 10 (7-16) BUN 52 H (9-23) mg/dL Creatinine 2.9 H (0.6-1.3) mg/dL Estim Creat Clear Calc 15.8 L (>60) mL/min eGFR 17 L (60 - ) See Note BUN/Creatinine Ratio 18 (12-20) Ratio Glucose 125 H (74-106) mg/dL Calculated Osmolality 264 L (275-295) Calcium 8.4 (8.3-10.6) mg/dL Corrected Calcium 8.4 L (8.5-10.1) mg/dL Magnesium 1.4 L (1.6-2.6) mg/dL Total Bilirubin 0.6 (0.3-1.2) mg/dL AST 16 (0-34) U/L ALT 8 L (10-49) U/L Alkaline Phosphatase 78 (46-116) U/L Lactate Dehydrogenase 282 H (120-246) U/L Troponin I 0.043 (0.0-0.045) ng/mL B-Natriuretic Peptide > 3280 H* (0-100) pg/mL Total Protein 6.3 (5.7-8.2) gm/dL Albumin 4.0 (3.4-4.8) gm/dL Globulin 2.3 (2.3-3.5) gm/dL Albumin/Globulin Ratio 1.7 (1.2-2.2) Ur Collection Type Clean Catch Urine Color Lt-Yellow (Lt Yel-Yel) Urine Clarity Clear (Clear/Hazy) Urine pH 7.0 (5.0-7.0) Ur Specific [place] 1.012 (1.001-1.035) Urine Protein 3+ A (Neg - Trace) Urine Glucose (UA) Negative (Negative) Urine Ketones Negative (Negative) Urine Blood 1+ A (Negative) Urine Nitrite Negative (Negative) Urine Bilirubin Negative (Negative) Urine Urobilinogen (Auto) Negative (0.0-1.0) mg/dL Ur Leukocyte Esterase Positive (Negative) Urine RBC 7 H (0-3) /hpf Urine WBC 24 H (0-5) /hpf Ur Squamous Epith Cells 2 (0-5) /hpf Urine Bacteria None (None) Discharge Plan Plan Patient Disposition: Admit Acute Care w/in Hospital Patient condition on transfer: Stable Problem List Clinical Impression: CKD (chronic kidney disease), Congestive heart failure, Edema of both lower legs, Shortness of breath 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
[2025-02-19] MEDS: hydrALAZINE INJ 20 MG/ML VIAL 10 MG IV ×2 (21:47→22:48)
--- NOTE | 2025-02-19 22:28 | PD.EVENT ---
Documentation for date of: 02/19/25 Event Note Event Note: A 69-year-old female presented to the ER with the chief complaint of progressive leg swelling, associated with cough and vomiting. The patient developed significant bilateral lower extremity swelling approximately two weeks ago, for which her outpatient Lasix dose was increased to 80 mg BID. She reports some improvement in swelling since then. However, over the past four days, she began experiencing a worsening cough severe enough to induce vomiting and has had minimal to no oral intake. She describes exertional dyspnea with walking even short distances. Family confirms poor oral intake and states she cannot walk more than 10?15 feet without becoming short of breath. She was referred to the ER from a clinic for persistent swelling and uncontrolled hypertension. She also reported a persistent headache. Amlodipine was discontinued at the time of worsening edema. Patient also c/o vomiting and shortness of breath on exertion. Patient denied chest pain, fever, chills, or diarrhea. The patient has a history of CHF, CKD, hypothyroidism, DM, and hypertension. Surgical history includes cholecystectomy and section. Current medications include Clindamycin, Coreg, Metolazone, Pantoprazole, Lasix, Sodium Bicarbonate, Hydralazine, Ferrous Sulfate, Calcium Acetate, Sevelamer, Levothyroxine, Lipitor, Januvia, Calcitriol, and Reva-Adriel. Social history: denies tobacco, alcohol, or illicit drug use. Cardiac echo in May 2024 showed an EF of 50?55%. In the ER, vital signs were: temp 97.8 ?F, HR 65 bpm, RR 18, BP 194/76 mmHg. Labs revealed: WBC 6.8, Hgb 10.3, Plt 185, Na 124, K 3.2, Cl 90, BUN 52, Cr 2.9, BNP >3280, troponin 0.043. CXR demonstrated moderate CHF. The patient was admitted for further management. #Acute on Chronic Heart Failure Assessment: Volume overload (bilateral LE edema, exertional dyspnea, orthopnea), elevated BNP >3280, moderate CHF on CXR, EF 50?55%, poor oral intake, prior Lasix and metolazone use Plan: - IV loop diuretics - Electrolyte repletion (notably K and Mg) and monitoring - Monitor for over-diuresis (BUN/Cr trends, hypotension) - Hold Amlodipine given prior edema, reassess BP control with alternative agents - Sodium-restricted diet - Fluid restriction #Hypertensive Urgency Assessment: SBP >180 with symptoms (headache, dyspnea), known HTN history, current BP 194/76 Plan: - IV hydralazine - Continue oral BP meds - Add nifedipine - Consider clonidine #Acute on Chronic Kidney Disease (Stage 4?5) Assessment: Cr 2.9, BUN 52, hyponatremia, hypokalemia; on phosphate binders, sodium bicarbonate, and renal vitamins Plan: - Monitor renal function and electrolytes daily - Maintain renal-protective measures: avoid nephrotoxins, adjust medication doses - Nephrology consultation #Hyponatremia Assessment: Na 124, likely multifactorial (CHF, diuretics, poor intake) Plan: - IV lasix - Fluid restriction (1.5 L/day) #Hypokalemia Assessment: K 3.2, possibly diuretic-induced (Lasix, Metolazone) Plan: - Replete K #Type 2 Diabetes Mellitus Assessment: Longstanding DM Plan: - POCT AC/HS - Goal: preprandial <140 mg/dL, random <180 mg/dL - Hold oral agents (Januvia) during poor PO intake - Start insulin sliding scale
[2025-02-19] MEDS: HEPARIN SOD INJ 5000 UNIT/ML VIAL SC (22:51)
[2025-02-19] MEDS: FUROSEMIDE INJ 10 MG/ML 4ML VIAL 40 MG IVP (22:51)
--- NOTE | 2025-02-19 22:59 | PD.RESHP ---
Documentation for date of: 02/19/25 HPI History of Present Illness Chief complaint: nausea, vomiting History of present illness: The patient is a 69-year-old female with previous medical history of hypertension, HFrEF EF 50-55% 05/2024, diabetic foot infection, end-stage liver disease, esophageal varices status post band ligation, CKD, type 2 diabetes, hypothyroidism who was brought to the ED after her PCP sent her. Her daughter Dominique at the bedside, reports that approximately a few days ago she started to experiencing general weakness, shortness of breath, her mobility is significantly decreased, she is not able to walk 10 to 15 feet without feeling short of breath, nausea and vomiting, decreased oral intake. She was seen by her PCP and was referred to the ED. Before that, she was started on furosemide 80 mg daily. Patient's concrete bucket loader is Dr Jean. ED course: Blood pressure 194/74, heart rate 65, febrile, saturating well on room air. Labs showed WBC count of 6.8, hemoglobin 10.3, hematocrit 29.5, platelets 185, INR 1.2, sodium 124, potassium 3.2, BUN 52, creatinine 2.9, EGFR 17, glucose 125, osmolality 264, LDH 282, BNP 3280, procalcitonin pending. UA showed WBC 24, positive leukocyte esterase, 3+ protein. Chest x-ray showed moderate CHF pattern, EKG showed sinus rhythm, 64 bpm. Social history: Denies smoking cigarettes, drinking alcohol Medications: Carvedilol 6.25 mg twice daily, metolazone 5 mg pantoprazole 40 mg, furosemide 80 mg, sodium bicarb 650 mg, hydralazine 50 mg, ferrous sulfate, calcium acetate, sevelamer, atorvastatin, calcitriol, Januvia, levothyroxine, Reva-Adriel. Allergies: Denies Surgical history: s/p 2nd toe amputation 2 months ago Review of Systems Review of Systems Systems Reviewed: All systems reviewed, normal except as documented Past Medical History Past Medical History CARDIAC: Positive Hypercholesterolemia, Congestive Heart Failure and Hypertension RESPIRATORY: Negative Chronic Obstructive Pulmonary Disease (COPD) GASTROINTESTINAL: Positive Cirrhosis and Gastrointestinal Bleed GENITOURINARY: Positive Chronic Kidney Disease and Renal Disease ENDOCRINE: Positive Endocrine Disorders, Diabetes Mellitus Type 2 and Hypothyroidism; Negative Diabetes Mellitus Type 1 HEMATOLOGIC: Positive Anemia Social History SMOKING STATUS: Never smoker SUBSTANCE USE: does not use Exam Vital Signs Temp Pulse Resp BP Pulse Ox O2 Del Method 98.0 F 76 16 183/84 H 97 Room Air 02/19/25 19:24 02/19/25 22:55 02/19/25 22:55 02/19/25 22:55 02/19/25 22:55 02/19/25 22:55 Narrative Exam Physical Exam General: Awake, chronically ill-appearing, generally weak. HEENT: Normocephalic, atraumatic, mucous membranes moist. Heart: Regular rate and rhythm, no murmurs. Lungs: Mild crackles. Abdomen: Soft, nondistended, mildly diffuse tenderness, positive bowel sounds. ?No guarding or rebound tenderness. Neurologic: Alert and oriented x3, appears somnolent, no gross neurological deficit, and patient able to move all 4 extremities. Extremities: 2+ tibial edema. 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 Skin: No rash or ecchymoses. Results: Labs 02/19/25 15:58 02/19/25 15:58 Labs: Short CBC 02/19/25 Range/Units 15:58 WBC 6.8 (3.6-11.0) Thou/mm3 Hgb 10.3 L (12.0-16.0) g/dL Hct 29.5 L (36.0-46.0) % Plt Count 185 (140-440) Thou/mm3 BMP 02/19/25 15:58 Sodium 124 L Potassium 3.2 L Chloride 90 L Carbon Dioxide 24.0 BUN 52 H Creatinine 2.9 H Glucose 125 H Calcium 8.4 Cardiac Enzymes 02/19/25 Range/Units 15:58 Troponin I 0.043 (0.0-0.045) ng/mL Liver Function 02/19/25 Range/Units 15:58 Total Bilirubin 0.6 (0.3-1.2) mg/dL AST 16 (0-34) U/L ALT 8 L (10-49) U/L Alkaline Phosphatase 78 (46-116) U/L Albumin 4.0 (3.4-4.8) gm/dL Urine 02/19/25 Range/Units 17:02 Urine Color Lt-Yellow (Lt Yel-Yel) Urine Clarity Clear (Clear/Hazy) Urine pH 7.0 (5.0-7.0) Ur Specific [place] 1.012 (1.001-1.035) Urine Protein 3+ A (Neg - Trace) Urine Glucose (UA) Negative (Negative) Quality Measures Quality Measures VTE prophylaxis Advance care planning discussed with:: child Medications Home Medications and Allergies Home Medications ?Medication ?Instructions ?Recorded ?Confirmed ?Type metformin 500 mg tablet 500 mg PO BID 03/29/24 05/10/24 History atorvastatin 40 mg tablet 40 mg PO QDAY 06/19/24 06/19/24 History empagliflozin 10 mg tablet 10 mg PO QDAY 06/19/24 06/19/24 History (Jardiance) levothyroxine 50 mcg capsule 50 mcg PO QDAY 06/19/24 06/19/24 History sitagliptin phosphate 50 mg tablet 50 mg PO QDAY 06/19/24 06/19/24 History (Januvia) vitamin B complex-vitamin C-folic 1 tab PO QDAY 06/19/24 06/19/24 History acid 0.8 mg tablet (Renal-Adriel) Allergies Allergy/AdvReac Type Severity Reaction Status Date / Time quetiapine (From Seroquel) AdvReac Severe hypothermia Verified 06/19/24 11:05 Visit Medications Acetaminophen (Acetaminophen 325 Mg Tablet) 650 mg PO Q6H PRN PRN Reason: Fever >101.5 Stop: 03/21/25 21:55 Atorvastatin Calcium (Atorvastatin Calcium 20 Mg Tablet) 40 mg PO HS ANDRES Stop: 03/22/25 20:59 Carvedilol (Carvedilol 3.125 Mg Tablet) 6.25 mg PO BIDWM ANDRES Stop: 03/22/25 07:59 Dextrose (Dextrose 50%-Water Inj 50 Ml Syringe) 25 ml IV Q15MIN PRN PRN Reason: BG 50-70 responsive npo pt Stop: 03/21/25 21:59 Dextrose (Dextrose 50%-Water Inj 50 Ml Syringe) 50 ml IV Q15MIN PRN PRN Reason: BG <50 OR BG <70 & pt unresponsive Stop: 03/21/25 21:59 Furosemide (Furosemide Inj 10 Mg/Ml 4ml Vial) 40 mg IVP BIDD ANDRES Stop: 03/21/25 21:59 Last Admin: 02/19/25 22:51 Dose: 40 mg Glucagon (Glucagon Inj 1 Mg Vial) 1 mg IM Q15MIN PRN PRN Reason: BG <70, and no IV access Heparin Sodium (Porcine) (Heparin Sod Inj 5000 Unit/Ml Vial) 5,000 unit SC Q12H ANDRES Stop: 03/05/25 21:59 Last Admin: 02/19/25 22:51 Dose: 5,000 unit Hydralazine HCl (Hydralazine Inj 20 Mg/Ml Vial) 10 mg IV Q6H PRN PRN Reason: SBP>160 Stop: 03/21/25 22:14 Last Admin: 02/19/25 22:48 Dose: 10 mg Hydralazine HCl (Hydralazine Hcl 10 Mg Tablet) 10 mg PO TID ANDRES Stop: 03/22/25 05:59 Magnesium Sulfate (Magnesium Sulfate Ivpb) 4 gm in 50 mls @ 12.5 mls/hr IV X1 ONE Stop: 02/20/25 02:00 Insulin Human Lispro (Insulin Lispro (Admelog) 1 Unit/0.01 Ml Unit) 0 unit SC AC ANDRES; Protocol Stop: 03/22/25 07:29 Levothyroxine Sodium (Levothyroxine Sodium 25 Mcg Tablet) 50 mcg PO ACBR ANDRES Stop: 03/22/25 05:59 Nifedipine (Nifedipine Xl 30 Mg Tabcr) 60 mg PO QDAY ANDRES Stop: 03/21/25 22:44 Pantoprazole Sodium (Pantoprazole 40 Mg Tablet) 40 mg PO QDAY ANDRES Stop: 03/22/25 08:59 Polyethylene Glycol (Polyethylene Glycol 17 Gm Packet) 17 gm PO QDAY PRN PRN Reason: constipation Stop: 03/22/25 08:59 Potassium Chloride (Potassium Chloride 20 Meq Tabcr) 20 meq PO BIDWM ANDRES Stop: 03/22/25 07:59 Sennosides (Senna Tablet) 1 tab PO QDAY PRN; Protocol PRN Reason: CONSTIPATION Stop: 03/21/25 22:13 Sevelamer Carbonate (Sevelamer Carbonate 800 Mg Tablet) 800 mg PO TIDWM ANDRES Stop: 03/22/25 07:59 Discontinued Medications Atorvastatin Calcium (Atorvastatin Calcium 20 Mg Tablet) 20 mg PO HS [facility] Stop: 03/22/25 20:59 Hydralazine HCl (Hydralazine Inj 20 Mg/Ml Vial) 10 mg IV X1 ONE Stop: 02/19/25 21:41 Last Admin: 02/19/25 21:47 Dose: 10 mg Sennosides (Senna Tablet) 1 tab PO QDAY PRN; Protocol PRN Reason: CONSTIPATION Stop: 03/21/25 22:13 Assessment & Plan Plan The patient is a 69-year-old female with previous medical history of hypertension, HFrEF EF 50-55% 05/2024, end-stage liver disease, esophageal varices status post band ligation, CKD, type 2 diabetes, hypothyroidism who was brought to the ED after her PCP sent her. Patient is going to be admitted for hypertensive urgency and CHF exacerbation treatment and management. #Hypertensive emergency Initial blood pressure 190/76, systolic blood pressure went up to 210s, patient received hydralazine 10 mg IV twice, systolic blood pressure went down to 160s. The plan is gradually decrease blood pressure by 5 to 15% over the next 23 hours. Plan: - Hydralazine 10 mg as needed if SBP >180 - Resumed home hydralazine 10 mg TID - Resumed home carvedilol - Nifedipine XL 60 mg qday #Acute CHF exacerbation #History of HFrEF Patient reports feeling short of breath and increased leg swelling. Saturates well on room air. Xray showed moderate CHF. BNP >3280. Plan: - Lasix 40 mg BID - Strict I's and O's - Daily weights - Resumed home carvedilol - Echo ordered - Fluid restriction 1500 ml - Keep Mg above 2 and K above 4 - Home amlodipine on hold for now #Hyponatremia #Hypokalemia #Hypomagnesemia Plan: - Daily CMP - Replete electrolytes as necessary - Potassium 20 mEq BID - Fluid restriction #JAVI on CKD In May 2024 creatinine was 1.7, EGFR 32. 02/19/2025 BUN 52 creatinine 2.9, EGFR 17. Patient's concrete bucket loader is Dr. Jean. Kidney function decrease could be in the setting of dehydration, cardiorenal syndrome, end-stage liver disease and/or long-term hypertension and diabetes. Plan: - Daily CMP - Avoid nephrotoxic agents - Continue with diuresis - Consult nephrology - Strict I's and O's - resumed home sevelamer #Hypothyroidism Plan: - Will resume her home levothyroxine #Type 2 diabetes Plan: - A1c ordered - Insulin sliding scale - Hypoglycemia protocol #Anemia Most likely in the setting of chronic disease. Plan: - Monitor CBC, transfuse if hemoglobin less than 7 - Iron panel ordered #History of diabetic foot infection s/p 2nd toe amputation. Plan: - Wound care #History of liver cirrhosis, compensated Tbilli 0.6, AST 16, ALT 8. Plan: - Monitor daily CMP - Monitor for signs of decompensation Health maintenance: FEN: carbohydrate consistent, fluid restriction 1500 ml DVT prophylaxis: heparin sc GI prophylaxis: Dispo: telemetry CODE STATUS: Full code Plan of care discussed with attending Dr. Aburto. Caitie Figueredo MD, PGY 1 Attending Provider Attestation/Addendum Pt was evaluated and plan formulated together with the housestaff team. I have reviewed the residents note above and agree with most of its content. Please refer to the residents note for additional details.
[2025-02-19] MEDS: Magnesium Sulfate 4 GM Ivpb 4 GM/50 ML BAG IV (23:09)
[2025-02-19 23:24] LABS: Procalcitonin 0.08 ng/ml (0.0-0.49)
[2025-02-20] VITALS (18 sets, daily range): BP systolic 116–178; BP diastolic 52–93; PULSE 60–81; RESP 11–96; TEMP 36–36.5; O2SAT 95–97; BMI 29.8
--- NOTE | 2025-02-20 00:22 | PC.NURSE ---
Report given to ODALYS Winters Telemetry
[2025-02-20] MEDS: NIFEdipine XL 30 MG TABCR 60 MG PO ×2 (01:30→08:28)
--- NOTE | 2025-02-20 01:44 | EKG_ITS ---
[facility] Test Date: 2025-02-20 Pat Name: BARBARA SMITH Department: Room: [facility] Gender: Female Food Scientist: VU : 1955 Requested By: Caitie Figueredo Order Number: [id number] Reading MD: Caitie Figueredo Measurements Intervals [place] Rate: 69 P: 73 [place]: 159 QRS: 48 QRSD: 92 T: 57 QT: 449 QTc: 483 Interpretive Statements SINUS RHYTHM Compared to ECG 02/19/2025 15:44:23 Myocardial infarct finding no longer present /store/[id number].pdf
[2025-02-20] MEDS: ONDANSETRON INJ 2 MG/ML INJ 2 ML 4 MG IV ×2 (02:36→08:28)
[2025-02-20] MEDS: POTASSIUM CHL 10 mEq IVPB 10 MEQ/100 ML BAG 100 MEQ IV ×4 (02:37→06:12)
[2025-02-20] MEDS: hydrALAZINE INJ 20 MG/ML VIAL 10 MG IV (04:38)
[2025-02-20 05:46] LABS: Basophils % (Auto) 0 % (0-2.5); Eosinophils % (Auto) 1 % (0-10); Hematocrit 27.5 % (36.0-46.0); Hemoglobin 9.6 g/dL (12.0-16.0); Immature Granulocytes % (Auto) 1 % (0-0); Immature Granulocytes Auto 0.03 Thou/mm3 (0.00-0.00); Lymphocytes # (Auto) 0.9 Thou/mm3 (1.0-4.8); Lymphocytes % (Auto) 15 % (10-50); Mean Corpuscular HGB Conc 34.9 g/dl (31.0-37.0); Mean Corpuscular Hemoglobin 30.1 pg (25.0-35.0); Mean Corpuscular Volume 86 fL (80-100); Monocytes # (Auto) 0.4 Thou/mm3 (0.0-0.8); Monocytes % (Auto) 6 % (0-12); Neutrophils # (Auto) 5.1 Thou/mm3 (1.8-7.7); Neutrophils % (Auto) 79 % (37-80); Nucleated Red Blood Cell % 0 /100 WBC (0); Platelet Count 181 Thou/mm3 (140-440); Red Blood Count 3.19 Miln/mm3 (4.00-5.20); White Blood Count 6.4 Thou/mm3 (3.6-11.0)
[2025-02-20] MEDS: hydrALAZINE HCL 10 MG TABLET PO ×3 (06:11→21:30)
[2025-02-20] MEDS: LEVOTHYROXINE SODIUM 25 MCG TABLET 50 MCG PO (06:11)
[2025-02-20] MEDS: FUROSEMIDE INJ 10 MG/ML 4ML VIAL 40 MG IVP ×2 (06:11→17:00)
[2025-02-20 06:12] LABS: Anion Gap 14 (7-16); BUN/Creatinine Ratio 18 Ratio (12-20); Blood Urea Nitrogen 54 mg/dL (9-23); Calcium 8.2 mg/dL (8.3-10.6); Carbon Dioxide 20.7 mMol/L (20.0-31.0); Chloride 90 mMol/L (98-107); Estimated Creatinine Clearance 15.2 mL/min (>60); Glucose 113 mg/dL (74-106); Magnesium 2.1 mg/dL (1.6-2.6); Osmolality,Calculated 267 (275-295); Phosphorous 4.2 mg/dL (2.4-5.1); Potassium 3.4 mMol/L (3.4-5.1); Sodium 125 mMol/L (136-145); eGFR 16 See Note
[2025-02-20] MEDS: POTASSIUM CHLORIDE 20 mEq TABCR PO ×2 (08:27→16:38)
[2025-02-20] MEDS: SEVELAMER CARBONATE 800 MG TABLET PO ×3 (08:27→16:38)
[2025-02-20] MEDS: carVEDILOL 3.125 MG TABLET 6.25 MG PO ×2 (08:27→16:38)
[2025-02-20] MEDS: PANTOPRAZOLE 40 MG TABLET PO (08:28)
[2025-02-20] MEDS: POTASSIUM CHL 10 mEq IVPB 10 MEQ/100 ML BAG 75 MEQ IV (08:43)
[2025-02-20] MEDS: HEPARIN SOD INJ 5000 UNIT/ML VIAL SC ×2 (10:23→21:30)
[2025-02-20] MEDS: METOCLOPRAMIDE INJ 5 MG/ML VIAL 2 ML 10 MG IVP ×2 (13:08→19:47)
--- NOTE | 2025-02-20 13:27 | XR_ITS ---
Examination: Abdomen AP single view Technique: AP portable supine abdomen, single view Exam date and time: February 20, 2025 1409 hours INDICATIONS: Distended abdomen this week. FINDINGS: Moderate stool throughout the colon. No obstruction Heavy soft tissue vascular calcification No free air. Surgical clips upper right abdomen Prominent osteopenia IMPRESSION: Moderate stool throughout the colon, no obstruction
--- NOTE | 2025-02-20 18:15 | ESPR_ITS ---
Documentation for date of: 02/20/25 Subjective Subjective Interval history: [employer] And Boring Machine Operator Dr Jean consulted, BUN and creatinine trended up. On physical exam abdomen soft but distended, KUB ordered which indicatedModerate stool throughout the colon, no obstruction. We will continue diuresis with Lasix. Echocardiogram ordered. Exam Vital Signs Temp Pulse Resp BP Pulse Ox O2 Del Method 96.8 F 67 16 116/52 L 95 Nasal Cannula 02/20/25 16:00 02/20/25 17:00 02/20/25 16:00 02/20/25 17:00 02/20/25 16:00 02/20/25 16:00 Narrative Exam General: Awake, chronically ill-appearing, generally weak. HEENT: Normocephalic, atraumatic, mucous membranes moist. Heart: Regular rate and rhythm, no murmurs. Lungs: Mild crackles. Abdomen: Soft, nondistended, mildly diffuse tenderness, positive bowel sounds. ?No guarding or rebound tenderness. Neurologic: Alert and oriented x3, appears somnolent, no gross neurological deficit, and patient able to move all 4 extremities. Extremities: 2+ tibial edema. 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 Skin: No rash or ecchymoses. Objective Labs 02/21/25 05:02 02/21/25 05:02 Labs: Laboratory Results - last 24 hr 02/19/25 02/20/25 22:46 04:48 WBC 6.4 RBC 3.19 L Hgb 9.6 L Hct 27.5 L MCV 86 MCH 30.1 MCHC 34.9 RDW Std Deviation 41.0 Plt Count 181 Neut % (Auto) 79 Lymph % (Auto) 15 [place] % (Auto) 6 Eos % (Auto) 1 Baso % (Auto) 0 Neut # (Auto) 5.1 Lymph # (Auto) 0.9 L [place] # (Auto) 0.4 Eos # (Auto) 0.0 Baso # (Auto) 0.0 Immature Gran # (Auto) 0.03 H Absolute Nucleated RBC 0.00 Immature Gran % 1 H Nucleated RBC % 0 Sodium 125 L Potassium 3.4 Chloride 90 L Carbon Dioxide 20.7 Anion Gap 14 BUN 54 H Creatinine 3.0 H Estim Creat Clear Calc 15.2 L eGFR 16 L BUN/Creatinine Ratio 18 Glucose 113 H Calculated Osmolality 267 L Calcium 8.2 L Phosphorus 4.2 Magnesium 2.1 Procalcitonin 0.08 Quality Measures Quality Measures VTE prophylaxis Advance care planning discussed with:: other Assessment & Plan Assessment Current Active Medications: Generic Name Dose Route Start Last Admin Trade Name Freq PRN Reason Stop Dose Admin Acetaminophen 650 mg 02/19/25 21:56 Acetaminophen 325 Mg Tablet PO 03/21/25 21:55 Q6H PRN Fever >101.5 Atorvastatin Calcium 40 mg 02/20/25 21:00 Atorvastatin Calcium 20 Mg Tablet PO 03/22/25 20:59 HS ANDRES Carvedilol 6.25 mg 02/20/25 08:00 02/20/25 16:38 Carvedilol 3.125 Mg Tablet PO 03/22/25 07:59 6.25 mg BIDWM ANDRES Administration Dextrose 25 ml 02/19/25 22:00 Dextrose 50%-Water Inj 50 Ml Syringe IV 03/21/25 21:59 Q15MIN PRN BG 50-70 responsive npo pt Dextrose 50 ml 02/19/25 22:00 Dextrose 50%-Water Inj 50 Ml Syringe IV 03/21/25 21:59 Q15MIN PRN BG <50 OR BG <70 & pt unresponsive Furosemide 40 mg 02/19/25 22:00 02/20/25 17:00 Furosemide Inj 10 Mg/Ml 4ml Vial IVP 03/21/25 21:59 40 mg BIDD ANDRES Administration Glucagon 1 mg 02/19/25 22:00 Glucagon Inj 1 Mg Vial IM Q15MIN PRN BG <70, and no IV access Heparin Sodium (Porcine) 5,000 unit 02/19/25 22:00 02/20/25 10:23 Heparin Sod Inj 5000 Unit/Ml Vial SC 03/05/25 21:59 5,000 unit Q12H ANDRES Administration Hydralazine HCl 10 mg 02/19/25 22:02 02/20/25 04:38 Hydralazine Inj 20 Mg/Ml Vial IV 03/21/25 22:14 10 mg Q6H PRN Administration SBP>160 Hydralazine HCl 10 mg 02/20/25 06:00 02/20/25 13:03 Hydralazine Hcl 10 Mg Tablet PO 03/22/25 05:59 10 mg TID ANDRES Administration Insulin Human Lispro 0 unit 02/20/25 07:30 02/20/25 16:30 Insulin Lispro (Admelog) 1 Unit/0.01 Ml Unit SC 03/22/25 07:29 Not Given AC ANDRES Protocol Levothyroxine Sodium 50 mcg 02/20/25 06:00 02/20/25 06:11 Levothyroxine Sodium 25 Mcg Tablet PO 03/22/25 05:59 50 mcg ACBR ANDRES Administration Metoclopramide HCl 10 mg 02/20/25 12:59 02/20/25 13:08 Metoclopramide Inj 5 Mg/Ml Vial 2 Ml IVP 03/22/25 12:58 10 mg Q6HR PRN Administration NAUSEA OR VOMITING Protocol Nifedipine 60 mg 02/19/25 22:45 02/20/25 08:28 Nifedipine Xl 30 Mg Tabcr PO 03/21/25 22:44 60 mg QDAY ANDRES Administration Ondansetron HCl 4 mg 02/20/25 02:14 02/20/25 02:36 Ondansetron Inj 2 Mg/Ml Inj 2 Ml IV 03/22/25 02:13 4 mg Q8HR PRN Administration NAUSEA OR VOMITING Protocol Pantoprazole Sodium 40 mg 02/20/25 09:00 02/20/25 08:28 Pantoprazole 40 Mg Tablet PO 03/22/25 08:59 40 mg QDAY ANDRES Administration Polyethylene Glycol 17 gm 02/19/25 22:14 Polyethylene Glycol 17 Gm Packet PO 03/22/25 08:59 QDAY PRN constipation Potassium Chloride 20 meq 02/20/25 08:00 02/20/25 16:38 Potassium Chloride 20 Meq Tabcr PO 03/22/25 07:59 20 meq BIDWM ANDRES Administration Sennosides 1 tab 02/19/25 22:15 Senna Tablet PO 03/21/25 22:13 QDAY PRN CONSTIPATION Protocol Sevelamer Carbonate 800 mg 02/20/25 08:00 02/20/25 16:38 Sevelamer Carbonate 800 Mg Tablet PO 03/22/25 07:59 800 mg TIDWM ANDRES Administration Plan The patient is a 69-year-old female with previous medical history of hypertension, HFrEF EF 50-55% 05/2024, end-stage liver disease, esophageal varices status post band ligation, CKD, type 2 diabetes, hypothyroidism who was brought to the ED after her PCP sent her. Patient is going to be admitted for hypertensive urgency and CHF exacerbation treatment and management. #Hypertensive emergency Initial blood pressure 190/76, systolic blood pressure went up to 210s, patient received hydralazine 10 mg IV twice, systolic blood pressure went down to 160s. The plan is gradually decrease blood pressure by 5 to 15% over the next 23 hours. Plan: - Hydralazine 10 mg as needed if SBP >180 - Resumed home hydralazine 10 mg TID - Resumed home carvedilol - Nifedipine XL 60 mg qday #Acute CHF exacerbation #History of HFrEF Patient reports feeling short of breath and increased leg swelling. Saturates well on room air. Xray showed moderate CHF. BNP >3280. Plan: - Lasix 40 mg BID - Strict I's and O's - Daily weights - Resumed home carvedilol - Echo ordered - Fluid restriction 1500 ml - Keep Mg above 2 and K above 4 - Home amlodipine on hold for now #Hyponatremia #Hypokalemia #Hypomagnesemia Plan: - Daily CMP - Replete electrolytes as necessary - Potassium 20 mEq BID - Fluid restriction #JAVI on CKD In May 2024 creatinine was 1.7, EGFR 32. 02/19/2025 BUN 52 creatinine 2.9, EGFR 17. Patient's manager pathology is Dr. Jean. Kidney function decrease could be in the setting of dehydration, cardiorenal syndrome, end-stage liver disease and/or long-term hypertension and diabetes. Plan: - Nephrology Dr. 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 Plan: - Wound care #History of liver cirrhosis, compensated Tbilli 0.6, AST 16, ALT 8. Plan: - Monitor daily CMP - Monitor for signs of decompensation Health maintenance: FEN: carbohydrate consistent, fluid restriction 1500 ml, Nephrology consulted DVT prophylaxis: heparin sc GI prophylaxis: Dispo: telemetry CODE STATUS: Full code This patient care was discussed with my attending Dr. Niranjan Ha MD PGY-2 Disclaimer: Minor errors in chief order dispatcher may be present since this note was dictated by speech recognition software. Attending Provider Attestation/Addendum I have discussed and was present for the essential components of the history, physical examination, diagnosis, and treatment plan with the resident. I agree with the patient's care as documented by the resident and amended herein by me. Yasmany Ureña DO. Although this document has been carefully reviewed, there may still be some phonetic and other typographical errors. These errors are purely grammatical due to imperfections in the software program and should not be construed in any way to compromise the substance of the patient's medical care during this visit.
--- NOTE | 2025-02-20 19:16 | PC.NURSE ---
@[id number]- Dr. Ha notified of patient with no urine output. Bladder scan performed with 0mL on assessment.
--- NOTE | 2025-02-20 19:18 | PC.NURSE ---
Dr. Morocho notified of bladder scan with a reported value of 0mL on scan. No new orders at this time.
[2025-02-20] MEDS: ACETAMINOPHEN 325 MG TABLET 650 MG PO (19:47)
[2025-02-20] MEDS: ATORVASTATIN CALCIUM 20 MG TABLET 40 MG PO (21:29)
--- NOTE | 2025-02-20 23:42 | ECHO_ITS ---
Transthoracic Echo Report Ht (in): 60 Wt (lb): 152 Exam Location: Echo Lab Status: Inpatient Real Time Analyst: Izabella Pablo Indications: Procedure Performed: BP: 116 / 52 HR: 64 Technical Quality: Technically difficult study MEASUREMENTS (Male / Female) Normal Values 2D ECHO LV Diastolic Diameter PLAX 4.4 cm 4.2 - 5.9 / 3.9 - 5.3 cm LV Systolic Diameter PLAX 3.5 cm IVS Diastolic Thickness 0.8 cm 0.6 - 1.0 / 0.6 - 0.9 cm LVPW Diastolic Thickness 1.0 cm 0.6 - 1.0 / 0.6 - 0.9 cm LV Relative Wall Thickness 0.4 LVOT Diameter 1.7 cm Aortic Root Diameter 2.5 cm LA Systolic Diameter LX 3.1 cm 3.0 - 4.0 / 2.7 - 3.8 cm LV Ejection Fraction MOD 4C 43.3 % LV Cardiac Index MOD 4C 1934.0 cm?/min?m? LV Ejection Fraction 4C AL 42.8 % LV Cardiac Index 4C AL 2023.2 cm?/min?m? LA Volume Index 37.6 cm?/m? 16 - 28 cm?/m? DOPPLER AV Peak Velocity 128.0 cm/s AV Peak Gradient 6.6 mmHg AV Mean Gradient 3.0 mmHg AV Velocity Time Integral 28.9 cm LVOT Peak Velocity 112.0 cm/s LVOT Peak Gradient 5.0 mmHg LVOT Velocity Time Integral 25.7 cm LVOT Cardiac Index 2153.0 cm?/min?m? AV Area Cont Eq vti 2.0 cm? AV Area Cont Eq pk 2.0 cm? MV Area PHT 2.3 cm? MR Peak Velocity 315.5 cm/s MR Peak Gradient 39.8 mmHg Mitral E Point Velocity 55.3 cm/s Mitral A Point Velocity 69.4 cm/s Mitral E to A Ratio 0.8 LV E' Lateral Velocity 6.3 cm/s Mitral E to LV E' Lateral Ratio 8.8 LV E' Septal Velocity 4.0 cm/s Mitral E to LV E' Septal Ratio 13.7 TR Peak Velocity 290.0 cm/s TR Peak Gradient 33.6 mmHg PV Peak Velocity 103.0 cm/s PV Peak Gradient 4.2 mmHg FINDINGS Left Ventricle Normal left ventricular size, systolic function with no obvious regional wall motion abnormalities. Mild LVH. Normal left ventricular diastolic filling pattern for age. The ejection fraction is visually estimated at 45%. Right Ventricle The right ventricle is normal in size and systolic function. The estimated right ventricular systolic pressure, 52 mmHg. RAP 15. Left Atrium Mildly increased left atrial volume 37.6 mL/m?. Right Atrium The right atrial cavity size is mildly increased. Atrial Septum The interatrial septum appears normal with no evidence of a shunt. Aorta The aorta is normal by two-dimensional, color flow and Doppler interrogation. Mitral Valve Mild mitral regurgitation. Aortic Valve Mild thickening of the aortic valve leaflets. Tricuspid Valve There is mild to moderate tricuspid valve regurgitation. Pulmonic Valve The pulmonic valve is not well visualized. There is no significant pulmonic valve regurgitation. Vessels Dilated inferior vena cava. Pericardium The pericardium is normal by two-dimensional imaging. There is no significant pericardial effusion. CONCLUSIONS Indication: CHF exacebation Normal LV size and function. Mild LVH. Estimated EF 50-55%. Stage 1 DD RV is normal in size and systolic function. Estimated RVSP, 52 mmHg. RAP 15. Mildly increased LA volume 37.6 mL/m?. RA cavity size is mildly increased. Mild MR. Mild thickening of the aortic AV. Mild to moderate TR. Dilated IVC. Romain Jones (Electronically Signed) Final Date: 21 February 2025 01:07
[2025-02-21] VITALS (14 sets, daily range): BP systolic 120–181; BP diastolic 55–98; PULSE 59–76; RESP 12–96; TEMP 36.1–36.4; O2SAT 93–98
[2025-02-21] MEDS: FUROSEMIDE INJ 10 MG/ML 4ML VIAL 40 MG IVP (05:16)
[2025-02-21] MEDS: LEVOTHYROXINE SODIUM 25 MCG TABLET 50 MCG PO (05:17)
[2025-02-21] MEDS: hydrALAZINE HCL 10 MG TABLET PO ×3 (05:17→21:24)
[2025-02-21 05:43] LABS: Basophils % (Auto) 0 % (0-2.5); Eosinophils # (Auto) 0.2 Thou/mm3 (0.0-0.5); Eosinophils % (Auto) 4 % (0-10); Hematocrit 28.5 % (36.0-46.0); Hemoglobin 9.7 g/dL (12.0-16.0); Immature Granulocytes % (Auto) 0 % (0-0); Immature Granulocytes Auto 0.02 Thou/mm3 (0.00-0.00); Lymphocytes # (Auto) 1.1 Thou/mm3 (1.0-4.8); Lymphocytes % (Auto) 21 % (10-50); Mean Corpuscular Hemoglobin 29.8 pg (25.0-35.0); Mean Corpuscular Volume 88 fL (80-100); Monocytes # (Auto) 0.5 Thou/mm3 (0.0-0.8); Monocytes % (Auto) 8 % (0-12); Neutrophils # (Auto) 3.6 Thou/mm3 (1.8-7.7); Neutrophils % (Auto) 66 % (37-80); Nucleated Red Blood Cell % 0 /100 WBC (0); Platelet Count 182 Thou/mm3 (140-440); RDW Standard Deviation 42.5 fL (36.4-46.3); Red Blood Count 3.25 Miln/mm3 (4.00-5.20); White Blood Count 5.5 Thou/mm3 (3.6-11.0)
[2025-02-21 06:16] LABS: Anion Gap 11 (7-16); BUN/Creatinine Ratio 14 Ratio (12-20); Blood Urea Nitrogen 56 mg/dL (9-23); Calcium 8.4 mg/dL (8.3-10.6); Chloride 94 mMol/L (98-107); Creatinine (Component) 3.9 mg/dL (0.6-1.3); Estimated Creatinine Clearance 11.8 mL/min (>60); Glucose 106 mg/dL (74-106); Magnesium 2.1 mg/dL (1.6-2.6); Osmolality,Calculated 268 (275-295); Phosphorous 4.9 mg/dL (2.4-5.1); Potassium 4.4 mMol/L (3.4-5.1); Sodium 126 mMol/L (136-145); eGFR 12 See Note
[2025-02-21] MEDS: SEVELAMER CARBONATE 800 MG TABLET PO ×3 (09:25→17:14)
[2025-02-21] MEDS: PANTOPRAZOLE 40 MG TABLET PO (09:25)
[2025-02-21] MEDS: POTASSIUM CHLORIDE 20 mEq TABCR PO ×2 (09:25→17:14)
[2025-02-21] MEDS: carVEDILOL 3.125 MG TABLET 6.25 MG PO ×2 (09:25→17:14)
[2025-02-21] MEDS: NIFEdipine XL 30 MG TABCR 60 MG PO (09:25)
[2025-02-21] MEDS: HEPARIN SOD INJ 5000 UNIT/ML VIAL SC (09:26)
[2025-02-21 10:40] LABS: Hepatitis A Antibody IgM Non Reactive (Non React); Hepatitis B Core Antibody IgM Non Reactive (Non React); Hepatitis B Surface Antigen Non Reactive (Non React); Hepatitis C Antibody Non Reactive (Non React)
--- NOTE | 2025-02-21 11:25 | ESCONSULT_ITS ---
RE: BARBARA SMITH : 1955 DATE OF CONSULTATION: 02/21/2025 REFERRING PHYSICIAN: Stoney Ha MD REASON FOR CONSULTATION: Progressively worsening kidney function and anasarca. 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 The patient's baseline serum creatinine since last year was anywhere from 1.7 to 2.2 mg/dL. She has been coming to my clinic every month for followup. During those times, I was talking to them about possibility of requiring dialysis in the near future as she always presented with anasarca. In her last visit with me last month, I started her on bumetanide 2 mg b.i.d. as she has bad anasarca. The patient was seen by her primary care physician prior to her admission and was found nauseated, vomiting, and has low appetite. The patient was also very weak. When she came to the hospital, she was found with a BUN of 52, creatinine of 2.9. Sodium is also low at 124. The patient was then admitted for further evaluation and management. While they were seeing me in my clinic, I always tell her daughter that she would one day need dialysis and somehow they tried to evade the question and would not answer me directly. Today, the daughter who does not see me in the clinic came with her and I was told that the other daughter will be coming to the hospital as well. They said that they will talk about dialysis now since it is badly needed. PAST MEDICAL HISTORY: Type 2 diabetes with neuropathy and nephropathy, hypertension, stage IV CKD, esophageal varices, status post banding. SURGICAL HISTORY: Cholecystectomy and section. ALLERGIES: NO KNOWN DRUG ALLERGIES. CURRENT MEDICATIONS: 1. Acetaminophen. 2. Atorvastatin 40 mg at bedtime. 3. Carvedilol 6.25 mg p.o. b.i.d. 4. Furosemide 40 mg IV b.i.d. 5. Hydralazine 10 mg p.o. b.i.d. p.r.n. 6. Insulin Lispro sliding scale. 7. Levothyroxine 50 mcg daily. 8. Nifedipine 60 mg p.o. daily. 9. Ondansetron 4 mg IV x1. 10. Protonix 40 mg p.o. daily. 11. Senokot. 11. Sevelamer 800 mg with meals. PHYSICAL EXAMINATION: Vital Signs: Blood pressure of 146/98, heart rate of 63, O2 saturation of 98% on room air. HEENT: Anicteric sclerae. Normocephalic. Neck: Supple. No JVD. Chest and Lungs: Symmetrical expansion. Clear breath sounds. Heart: Without murmur. Abdomen: Soft, nontender. Extremities: Trace edema in both lower extremities. LABORATORY DATA: Hemoglobin 9.7, WBC 5500, platelet count 182,000. Sodium 126, potassium 4.4, chloride 94, CO2 of 21, BUN 56, creatinine 3.9, calcium 8.4, phosphorus 4.9. Urinalysis: Urine protein 3+, blood 1+, rbc 7, wbc 24, bacteria none, urine nitrite negative. ASSESSMENT: 1. Acute on chronic stage IV chronic kidney disease, most likely secondary to type 1 hepatorenal syndrome. 2. Type 2 hepatorenal syndrome. 3. Stage IV chronic kidney disease secondary to combination of diabetic nephropathy and type 2 hepatorenal syndrome. 4. Anemia of chronic disease. 5. Uremia. 6. History of hypertension. 7. History of anasarca, now improved with diuretics. PLAN: The patient has become oliguric and most likely has turned from type 2 hepatorenal syndrome to type 1 hepatorenal syndrome. At this point, I offered the family dialysis; however, they have not made a decision at this point. I also explained to them the risk of dialysis, namely hypotension during dialysis, bleeding, infection, etc. I also told them that prognosis is usually not very good for patients with hepatorenal syndrome and in her case it is type 1 hepatorenal syndrome. Once they have made their decision to proceed with dialysis, then dialysis will be provided in increment doses after a dialysis catheter is placed. I will monitor her very closely. DT: 09:35:24 TT: 10:33:00 Ref: [id number] - TID: [id number] [facility]
--- NOTE | 2025-02-21 11:40 | XR_ITS ---
Examination: Fingers, right hand second digit 3 views Technique: AP, oblique, lateral views right hand second digit 3 views. Exam date and time: February 21, 2025 1158 hours INDICATIONS: Right second digit pain and burning sensation 8 days. FINDINGS: Significant osteopenia Soft tissue vascular calcification. No fracture or dislocation. No foreign body. No cortical bone destruction IMPRESSION: No fracture or dislocation
[2025-02-21] MEDS: LACTULOSE SYRUP 20 GM/30 ML UDC PO (11:53)
[2025-02-21] MEDS: EPOETIN ALFA INJ 1,000 UNIT/0.05 ML UNIT 10000 UNIT SC (13:16)
[2025-02-21 13:48] LABS: Ammonia < 10 uMol/L (11-32)
--- NOTE | 2025-02-21 14:40 | ESPR_ITS ---
<Statement entered by Stoney Ha MD - 02/21/25 22:11> Patient with anauria. Is Architect Dr. Jean saw patient this morning. Patient to undergo Perm-cath placement tomorrow morning. Lactulose added as patient still with no bowel movement. Family members updated regarding patient's condition at bedside. I discussed with and supervised the director internal control physician involved in the care of this patient. Patient assessment and plan was discussed with entire medicine team, including my attending. I agree with the assessment and plan as documented by director internal control doctor. Patient care was discussed with my attending physician Dr. Niranjan Ha, PGY-2 Documentation for date of: 02/21/25 Subjective Subjective Interval history: Patient seen and examined at bedside. Patient started on lactulose 20 mg p.o. 3 times daily, titrate to 2-3 bowel movements. Patient has worsening renal failure, minimal urine output, will hold Lasix, nephrology consulted, recommended dialysis Case discussed with family, family agrees with dialysis for now, patient kept n.p.o. after midnight, will schedule for IR dialysis catheter placement in a.m. Ordered hepatitis panel, TB workup. Exam Vital Signs Temp Pulse Resp BP Pulse Ox O2 Del Method 97.6 F 67 13 164/71 H 97 Room Air 02/21/25 12:00 02/21/25 13:17 02/21/25 12:00 02/21/25 13:17 02/21/25 12:00 02/21/25 12:00 Narrative Exam General: Awake, chronically ill-appearing, generally weak. HEENT: Normocephalic, atraumatic, mucous membranes moist. Heart: Regular rate and rhythm, no murmurs. Lungs: Mild crackles. Abdomen: Soft, nondistended, mildly diffuse tenderness, positive bowel sounds. ?No guarding or rebound tenderness. Neurologic: Alert and oriented x3, appears somnolent, no gross neurological deficit, and patient able to move all 4 extremities. Extremities: 1+ tibial edema. 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 Skin: No rash or ecchymoses. Objective Labs 02/22/25 05:00 02/22/25 05:00 Labs: Laboratory Results - last 24 hr 02/21/25 02/21/25 05:02 12:54 WBC 5.5 RBC 3.25 L Hgb 9.7 L Hct 28.5 L MCV 88 MCH 29.8 MCHC 34.0 RDW Std Deviation 42.5 Plt Count 182 Neut % (Auto) 66 Lymph % (Auto) 21 [place] % (Auto) 8 Eos % (Auto) 4 Baso % (Auto) 0 Neut # (Auto) 3.6 Lymph # (Auto) 1.1 [place] # (Auto) 0.5 Eos # (Auto) 0.2 Baso # (Auto) 0.0 Immature Gran # (Auto) 0.02 H Absolute Nucleated RBC 0.00 Immature Gran % 0 Nucleated RBC % 0 Sodium 126 L Potassium 4.4 D Chloride 94 L Carbon Dioxide 21.0 Anion Gap 11 BUN 56 H Creatinine 3.9 H D Estim Creat Clear Calc 11.8 L eGFR 12 L* BUN/Creatinine Ratio 14 Glucose 106 Calculated Osmolality 268 L Calcium 8.4 Phosphorus 4.9 Magnesium 2.1 Ammonia < 10 L Hepatitis A IgM Ab Non Reactive Hep Bs Antigen Non Reactive Hep B Core IgM Ab Non Reactive Hepatitis C Antibody Non Reactive Quality Measures Quality Measures VTE prophylaxis Advance care planning discussed with:: patient Assessment & Plan Assessment Current Active Medications: Generic Name Dose Route Start Last Admin Trade Name Freq PRN Reason Stop Dose Admin Acetaminophen 650 mg 02/19/25 21:56 02/20/25 19:47 Acetaminophen 325 Mg Tablet PO 03/21/25 21:55 650 mg Q6H PRN Administration Fever >101.5 Atorvastatin Calcium 40 mg 02/20/25 21:00 02/20/25 21:29 Atorvastatin Calcium 20 Mg Tablet PO 03/22/25 20:59 40 mg HS ANDRES Administration Carvedilol 6.25 mg 02/20/25 08:00 02/21/25 09:25 Carvedilol 3.125 Mg Tablet PO 03/22/25 07:59 6.25 mg BIDWM ANDRES Administration Dextrose 25 ml 02/19/25 22:00 Dextrose 50%-Water Inj 50 Ml Syringe IV 03/21/25 21:59 Q15MIN PRN BG 50-70 responsive npo pt Dextrose 50 ml 02/19/25 22:00 Dextrose 50%-Water Inj 50 Ml Syringe IV 03/21/25 21:59 Q15MIN PRN BG <50 OR BG <70 & pt unresponsive Furosemide 40 mg 02/19/25 22:00 02/21/25 05:16 Furosemide Inj 10 Mg/Ml 4ml Vial IVP 03/21/25 21:59 40 mg BIDD ANDRES Administration Glucagon 1 mg 02/19/25 22:00 Glucagon Inj 1 Mg Vial IM Q15MIN PRN BG <70, and no IV access Heparin Sodium (Porcine) 5,000 unit 02/19/25 22:00 02/21/25 09:26 Heparin Sod Inj 5000 Unit/Ml Vial SC 03/05/25 21:59 5,000 unit Q12H ANDRES Administration Hydralazine HCl 10 mg 02/19/25 22:02 02/20/25 04:38 Hydralazine Inj 20 Mg/Ml Vial IV 03/21/25 22:14 10 mg Q6H PRN Administration SBP>160 Hydralazine HCl 10 mg 02/20/25 06:00 02/21/25 13:17 Hydralazine Hcl 10 Mg Tablet PO 03/22/25 05:59 10 mg TID ANDRES Administration Insulin Human Lispro 0 unit 02/20/25 07:30 02/21/25 11:43 Insulin Lispro (Admelog) 1 Unit/0.01 Ml Unit SC 03/22/25 07:29 Not Given AC ANDRES Protocol Lactulose 20 gm 02/21/25 11:38 02/21/25 11:53 Lactulose Syrup 20 Gm/30 Ml Udc PO 03/23/25 13:59 20 gm TID PRN Administration cirrhosis Protocol Levothyroxine Sodium 50 mcg 02/20/25 06:00 02/21/25 05:17 Levothyroxine Sodium 25 Mcg Tablet PO 03/22/25 05:59 50 mcg ACBR ANDRES Administration Metoclopramide HCl 10 mg 02/20/25 12:59 02/20/25 19:47 Metoclopramide Inj 5 Mg/Ml Vial 2 Ml IVP 03/22/25 12:58 10 mg Q6HR PRN Administration NAUSEA OR VOMITING Protocol Nifedipine 60 mg 02/19/25 22:45 02/21/25 09:25 Nifedipine Xl 30 Mg Tabcr PO 03/21/25 22:44 60 mg QDAY ANDRES Administration Ondansetron HCl 4 mg 02/20/25 02:14 02/20/25 02:36 Ondansetron Inj 2 Mg/Ml Inj 2 Ml IV 03/22/25 02:13 4 mg Q8HR PRN Administration NAUSEA OR VOMITING Protocol Pantoprazole Sodium 40 mg 02/20/25 09:00 02/21/25 09:25 Pantoprazole 40 Mg Tablet PO 03/22/25 08:59 40 mg QDAY ANDRES Administration Polyethylene Glycol 17 gm 02/19/25 22:14 Polyethylene Glycol 17 Gm Packet PO 03/22/25 08:59 QDAY PRN constipation Potassium Chloride 20 meq 02/20/25 08:00 02/21/25 09:25 Potassium Chloride 20 Meq Tabcr PO 03/22/25 07:59 20 meq BIDWM ANDRES Administration Sennosides 1 tab 02/19/25 22:15 Senna Tablet PO 03/21/25 22:13 QDAY PRN CONSTIPATION Protocol Sevelamer Carbonate 800 mg 02/20/25 08:00 02/21/25 11:53 Sevelamer Carbonate 800 Mg Tablet PO 03/22/25 07:59 800 mg TIDWM ANDRES Administration Plan Assessment and plan Summary: The patient is a 69-year-old female with previous medical history of hypertension, HFrEF EF 50-55% 05/2024, end-stage liver disease, esophageal varices status post band ligation, CKD, type 2 diabetes, hypothyroidism who was brought to the ED after her PCP sent her. Patient is going to be admitted for hypertensive urgency and CHF exacerbation treatment and management. #Acute renal failure #JAVI on CKD In May 2024 creatinine was 1.7, EGFR 32. 02/19/2025 BUN 52 creatinine 2.9, EGFR 17. Patient's oncology rep specialist is Dr. Jean. Kidney function decrease could be in the setting of dehydration, cardiorenal syndrome, end-stage liver disease and/or long-term hypertension and diabetes. Patient has minimal urine output, worsening of renal function noted, nephrology recommended dialysis, family agrees with dialysis. Plan: -Scheduled for dialysis catheter placement tomorrow, n.p.o. after midnight - Nephrology Dr. Jean consulted, recommendations are appreciated - Ordered hepatitis panel, TB workup. - Daily CMP - Avoid nephrotoxic agents -Hold IV Lasix - Consult nephrology - Strict I's and O's - resumed home sevelamer #Acute CHF exacerbation #History of HFrEF Patient reports feeling short of breath and increased leg swelling. Saturates well on room air. Xray showed moderate CHF. BNP >3280. ECHO 02/20/2025: Normal LV size and function. Mild LVH. Estimated EF 50-55%. Stage 1 DD RV is normal in size and systolic function. Estimated RVSP, 52 mmHg. RAP 15. Mildly increased LA volume 37.6 mL/m?. RA cavity size is mildly increased. Mild MR. Mild thickening of the aortic AV. Mild to moderate TR. Dilated IVC. Plan: - Hold Lasix 40 mg BID - Strict I's and O's - Daily weights - Continue home carvedilol - Echo ordered - Fluid restriction 1500 ml - Keep Mg above 2 and K above 4 - Home amlodipine on hold for now #Hypertensive emergency Initial blood pressure 190/76, systolic blood pressure went up to 210s, patient received hydralazine 10 mg IV twice, systolic blood pressure went down to 160s. The plan is gradually decrease blood pressure by 5 to 15% over the next 23 hours. Plan: - Hydralazine 10 mg as needed if SBP >180 - Resumed home hydralazine 10 mg TID - Resumed home carvedilol - Nifedipine XL 60 mg qday #Hyponatremia #Hypokalemia #Hypomagnesemia Plan: - Daily CMP - Replete electrolytes as necessary - Potassium 20 mEq BID - Fluid restriction #Hypothyroidism Plan: -Continue levothyroxine 50 mcg daily #Type 2 diabetes Plan: - A1c 7.2% - Insulin sliding scale - Hypoglycemia protocol #Normocytic Anemia Most likely in the setting of chronic disease Iron panel indicated low iron Plan: - Monitor CBC, transfuse if hemoglobin less than 7 - Consider iron suppluments on discharge #History of diabetic foot infection s/p 2nd toe amputation. Plan: - Wound care #History of liver cirrhosis, compensated Tbilli 0.6, AST 16, ALT 8. Plan: - Monitor daily CMP - Monitor for signs of decompensation Health maintenance: FEN: carbohydrate consistent, fluid restriction 1500 ml, Nephrology consulted DVT prophylaxis: heparin sc GI prophylaxis: Dispo: telemetry CODE STATUS: Full code This patient care was discussed with my attending Dr. Ureña and Dr Leland MD PGY-2 Laure Green PGY1 Disclaimer: Minor errors in cement block maker may be present since this note was dictated by speech recognition software. Attending Provider Attestation/Addendum I have discussed and was present for the essential components of the history, physical examination, diagnosis, and treatment plan with the resident. I agree with the patient's care as documented by the resident and amended herein by me. Yasmany Ureña DO. Although this document has been carefully reviewed, there may still be some phonetic and other typographical errors. These errors are purely grammatical due to imperfections in the software program and should not be construed in any way to compromise the substance of the patient's medical care during this visit.
--- NOTE | 2025-02-21 14:42 | PC.SS ---
Initial assessment: this is 69 year old female. Patient resides at home with her daughter, Dominique Lebron. Patient is Liberian speaking. Dominique was assigned as her emergency contact. Patient has a walker and cane at home. Patient follows primary care with provider Cherrie at [facility]. Pharmacy of choice [facility]. Patient also follows collection systems consultant. Patient to return home upon discharge. Patient's daughter to transport the patient home upon discharge. No needs identified at this time. D/c plan: Home Next of kin: daughter, Dominique Lebron [phone]
--- NOTE | 2025-02-21 15:42 | PC.SS ---
Rounding note: patient will be a new outpatient HD. Pending TB, hep panbryon, three sessions of HD.
[2025-02-21] MEDS: ONDANSETRON INJ 2 MG/ML INJ 2 ML 4 MG IV (17:15)
[2025-02-21] MEDS: TUBERCULIN PPD INJ 5 UNIT/0.1 ML DOSE ID (17:56)
[2025-02-21] MEDS: METOCLOPRAMIDE INJ 5 MG/ML VIAL 2 ML 10 MG IVP (19:53)
[2025-02-21] MEDS: ACETAMINOPHEN 325 MG TABLET 650 MG PO (20:32)
[2025-02-21] MEDS: ATORVASTATIN CALCIUM 20 MG TABLET 40 MG PO (20:32)
[2025-02-22] VITALS (30 sets, daily range): BP systolic 124–185; BP diastolic 54–83; PULSE 59–96; RESP 10–26; TEMP 35.8–36.8; O2SAT 95–99; BMI 30.7
--- NOTE | 2025-02-22 05:00 | XR_ITS ---
Ultrasound-guided needle placement right internal jugular vein Permanent tunneled dialysis catheter insertion, percutaneous Fluoroscopy AP chest, portable, single view. Date and time of procedure: February 22, 2025 0900 hours INDICATIONS: PermCath insertion renal failure patient needing stat and long-term dialysis Informed consent provided Technique: A timeout was completed verifying correct patient, procedure, site, positioning, and special equipment if applicable. The patient was placed in a dependent position appropriate for dialysis catheter placement based on the vein to be cannulated. The patient'sright neck was prepped and draped in sterile fashion. Maximum Sterile Barrier Technique used including cap, mask, sterile gown, sterile gloves, and sterile full body drape. If ultrasound technique used: sterile gel and sterile probe covers. Hand Hygiene performed using proper scrub, soap and water, or alcohol-based hand rub. 1% lidocaine was used to anesthetize the surrounding skin area The [employer] portable apparatus utilized to confirm patency of the right internal jugular vein Utilizing ultrasonographic guidance successful 21-gauge needle puncture into the right internal jugular vein Ultrasound images were recorded and stored. Vessel micropuncture was performed with 21-gauge needle. 0.18 wire guide is introduced into the vein. 0.18 wire is introduced into the vena cava under fluoroscopy. Subcutaneous tunnel formed in the upper chest. Permanent tunneled dialysis catheter placed in the subcutaneous tunnel. Dilators were introduced over the J-wire guide. Tunneled dialysis catheter is introduced through a dilator with venous sheath into the superior vena cava under fluoroscopic guidance. The catheter is sutured in place to the skin and a sterile dressing applied. Perfusion to the extremity distal to the point of catheter insertion is checked and found to be adequate Attending radiologist was present for the entire procedure Estimated blood loss2 cc. The patient tolerated the procedure well and there were no complications Impression: Successful ultrasound-guided needle placement right internal jugular vein Successful permanent tunneled dialysis catheter insertion, percutaneous Fluoroscopy 0.1 minute radiation dose 1.63 milligray 1 spot fluoroscopic chest film. AP chest performed at completion procedure demonstrates satisfactory position dialysis catheter. May use dialysis catheter.
[2025-02-22 05:25] LABS: Basophils % (Auto) 0 % (0-2.5); Eosinophils # (Auto) 0.1 Thou/mm3 (0.0-0.5); Eosinophils % (Auto) 2 % (0-10); Hematocrit 29.2 % (36.0-46.0); Hemoglobin 9.9 g/dL (12.0-16.0); Immature Granulocytes % (Auto) 0 % (0-0); Immature Granulocytes Auto 0.02 Thou/mm3 (0.00-0.00); Lymphocytes # (Auto) 1.4 Thou/mm3 (1.0-4.8); Lymphocytes % (Auto) 27 % (10-50); Mean Corpuscular HGB Conc 33.9 g/dl (31.0-37.0); Mean Corpuscular Hemoglobin 30.1 pg (25.0-35.0); Mean Corpuscular Volume 89 fL (80-100); Monocytes # (Auto) 0.5 Thou/mm3 (0.0-0.8); Monocytes % (Auto) 9 % (0-12); Neutrophils # (Auto) 3.3 Thou/mm3 (1.8-7.7); Neutrophils % (Auto) 62 % (37-80); Nucleated Red Blood Cell % 0 /100 WBC (0); Platelet Count 204 Thou/mm3 (140-440); RDW Standard Deviation 43.2 fL (36.4-46.3); Red Blood Count 3.29 Miln/mm3 (4.00-5.20); White Blood Count 5.4 Thou/mm3 (3.6-11.0)
[2025-02-22 05:50] LABS: Anion Gap 11 (7-16); BUN/Creatinine Ratio 15 Ratio (12-20); Blood Urea Nitrogen 60 mg/dL (9-23); Calcium 8.6 mg/dL (8.3-10.6); Carbon Dioxide 20.9 mMol/L (20.0-31.0); Chloride 96 mMol/L (98-107); Estimated Creatinine Clearance 11.3 mL/min (>60); Glucose 94 mg/dL (74-106); Magnesium 2.2 mg/dL (1.6-2.6); Osmolality,Calculated 273 (275-295); Phosphorous 4.8 mg/dL (2.4-5.1); Potassium 4.7 mMol/L (3.4-5.1); Sodium 128 mMol/L (136-145); eGFR 11 See Note
[2025-02-22 06:03] LABS: Ammonia < 10 uMol/L (11-32)
[2025-02-22 07:17] LABS: Hepatitis A Antibody IgM Non Reactive (Non React); Hepatitis B Core Antibody IgM Non Reactive (Non React); Hepatitis B Surface Antigen Non Reactive (Non React); Hepatitis C Antibody Non Reactive (Non React)
[2025-02-22] MEDS: hydrALAZINE INJ 20 MG/ML VIAL 10 MG IV ×2 (08:17→18:24)
[2025-02-22] MEDS: HEPARIN SOD LOCK SYR 100 UNIT/ML 500 UNIT IV (09:38)
[2025-02-22] MEDS: fentaNYL CIT INJ 50 mCg/ML AMP 2ML IVP (09:39)
[2025-02-22] MEDS: LIDOCAINE INJ PF 1% 30 ML VIAL 9 ML INFL (09:41)
[2025-02-22] MEDS: HEPARIN SOD INJ 1000 UNIT/ML VIAL 3500 UNIT INDWELLCAT (09:50)
--- NOTE | 2025-02-22 10:39 | PC.NURSE ---
hand off report given to dakota alexander. patient tolerated well. patient transferred via gurney to room. patient having dry heaves. due to pressure dressing became saturated with bleed. manual pressure applied for 5 min. dermabond applied to site and dressing changed. dressing is clean dry and intact. educated dakota rn on how to manage bleed if to occur again. dakota demonstrated and expressed verbal understanding.
--- NOTE | 2025-02-22 10:40 | PC.NURSE ---
Dr. Green notified of BP 173/74, ok to still hold bp medications because dialysis soon.
[2025-02-22] MEDS: ACETAMINOPHEN 325 MG TABLET 650 MG PO ×2 (10:48→17:42)
[2025-02-22] MEDS: PANTOPRAZOLE 40 MG TABLET PO (10:48)
[2025-02-22] MEDS: ONDANSETRON INJ 2 MG/ML INJ 2 ML 4 MG IV (10:48)
--- NOTE | 2025-02-22 11:52 | ESPR_ITS ---
<Statement entered by Stoney Ha MD - 02/23/25 07:48> I discussed with and supervised the physician general internal medicine physician involved in the care of this patient. Patient assessment and plan was discussed with entire medicine team, including my attending. I agree with the assessment and plan as documented by physician general internal medicine doctor. Patient care was discussed with my attending physician Dr. Niranjan Ha, PGY-2 Documentation for date of: 02/22/25 Subjective Subjective Interval history: Patient seen and examined at bedside. Patient had permanent dialysis catheter placement today, per nephrology recommendations. Patient is scheduled for first dialysis treatment today, patient's hepatitis panel was negative. Tuberculosis skin test read is pending. Patient will receive second session of dialysis tomorrow, social welfare administrator will schedule patient for outpatient dialysis. Will continue to monitor patient, Nephrology following. Exam Vital Signs Temp Pulse Resp BP Pulse Ox O2 Del Method O2 Flow Rate 97.8 F 90 16 163/62 H 99 Room Air 2 02/22/25 09:08 02/22/25 09:49 02/22/25 09:49 02/22/25 09:49 02/22/25 09:49 02/22/25 09:49 02/22/25 09:45 Narrative Exam General: Awake, chronically ill-appearing, generally weak. HEENT: Normocephalic, atraumatic, mucous membranes moist. Heart: Regular rate and rhythm, no murmurs. Lungs: Mild crackles. Abdomen: Soft, nondistended, mildly diffuse tenderness, positive bowel sounds. ?No guarding or rebound tenderness. Neurologic: Alert and oriented x3, appears somnolent, no gross neurological deficit, and patient able to move all 4 extremities. Extremities: 1+ tibial edema. 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 Skin: No rash or ecchymoses. Objective Labs 02/22/25 05:00 02/22/25 05:00 Labs: Laboratory Results - last 24 hr 02/21/25 02/22/25 12:54 05:00 WBC 5.4 RBC 3.29 L Hgb 9.9 L Hct 29.2 L MCV 89 MCH 30.1 MCHC 33.9 RDW Std Deviation 43.2 Plt Count 204 Neut % (Auto) 62 Lymph % (Auto) 27 [place] % (Auto) 9 Eos % (Auto) 2 Baso % (Auto) 0 Neut # (Auto) 3.3 Lymph # (Auto) 1.4 [place] # (Auto) 0.5 Eos # (Auto) 0.1 Baso # (Auto) 0.0 Immature Gran # (Auto) 0.02 H Absolute Nucleated RBC 0.00 Immature Gran % 0 Nucleated RBC % 0 Sodium 128 L Potassium 4.7 Chloride 96 L Carbon Dioxide 20.9 Anion Gap 11 BUN 60 H Creatinine 4.0 H Estim Creat Clear Calc 11.3 L eGFR 11 L* BUN/Creatinine Ratio 15 Glucose 94 Calculated Osmolality 273 L Calcium 8.6 Phosphorus 4.8 Magnesium 2.2 Ammonia < 10 L < 10 L Hepatitis A IgM Ab Non Reactive Hep Bs Antigen Non Reactive Hep B Core IgM Ab Non Reactive Hepatitis C Antibody Non Reactive Quality Measures Quality Measures VTE prophylaxis Advance care planning discussed with:: patient Assessment & Plan Assessment Current Active Medications: Generic Name Dose Route Start Last Admin Trade Name Freq PRN Reason Stop Dose Admin Acetaminophen 650 mg 02/21/25 20:05 02/22/25 10:48 Acetaminophen 325 Mg Tablet PO 03/21/25 21:55 650 mg Q6H PRN Administration Fever >100.3 or pain 1-3 Hydrocodone Bitart/Acetaminophen 1 tab 02/21/25 20:06 Hydrocodone/Apap 5/325 Tablet PO 02/26/25 20:05 Q6HR PRN Pain 4-10 Atorvastatin Calcium 40 mg 02/20/25 21:00 02/21/25 20:32 Atorvastatin Calcium 20 Mg Tablet PO 03/22/25 20:59 40 mg HS ANDRES Administration Carvedilol 6.25 mg 02/20/25 08:00 02/22/25 09:37 Carvedilol 3.125 Mg Tablet PO 03/22/25 07:59 Not Given BIDWM ANDRES Dextrose 25 ml 02/19/25 22:00 Dextrose 50%-Water Inj 50 Ml Syringe IV 03/21/25 21:59 Q15MIN PRN BG 50-70 responsive npo pt Dextrose 50 ml 02/19/25 22:00 Dextrose 50%-Water Inj 50 Ml Syringe IV 03/21/25 21:59 Q15MIN PRN BG <50 OR BG <70 & pt unresponsive Furosemide 40 mg 02/19/25 22:00 02/21/25 05:16 Furosemide Inj 10 Mg/Ml 4ml Vial IVP 03/21/25 21:59 40 mg BIDD ANDRES Administration Glucagon 1 mg 02/19/25 22:00 Glucagon Inj 1 Mg Vial IM Q15MIN PRN BG <70, and no IV access Heparin Sodium (Porcine) 5,000 unit 02/19/25 22:00 02/21/25 09:26 Heparin Sod Inj 5000 Unit/Ml Vial SC 03/05/25 21:59 5,000 unit Q12H ANDRES Administration Hydralazine HCl 10 mg 02/19/25 22:02 02/22/25 08:17 Hydralazine Inj 20 Mg/Ml Vial IV 03/21/25 22:14 10 mg Q6H PRN Administration SBP>160 Hydralazine HCl 10 mg 02/20/25 06:00 02/22/25 06:18 Hydralazine Hcl 10 Mg Tablet PO 03/22/25 05:59 Not Given TID ANDRES Insulin Human Lispro 0 unit 02/20/25 07:30 02/22/25 11:21 Insulin Lispro (Admelog) 1 Unit/0.01 Ml Unit SC 03/22/25 07:29 Not Given AC ANDRES Protocol Lactulose 20 gm 02/21/25 11:38 02/21/25 11:53 Lactulose Syrup 20 Gm/30 Ml Udc PO 03/23/25 13:59 20 gm TID PRN Administration cirrhosis Protocol Levothyroxine Sodium 50 mcg 02/20/25 06:00 02/22/25 06:18 Levothyroxine Sodium 25 Mcg Tablet PO 03/22/25 05:59 Not Given ACBR ANDRES Metoclopramide HCl 10 mg 02/20/25 12:59 02/21/25 19:53 Metoclopramide Inj 5 Mg/Ml Vial 2 Ml IVP 03/22/25 12:58 10 mg Q6HR PRN Administration NAUSEA OR VOMITING Protocol Nifedipine 60 mg 02/19/25 22:45 02/22/25 10:49 Nifedipine Xl 30 Mg Tabcr PO 03/21/25 22:44 Not Given QDAY ANDRES Ondansetron HCl 4 mg 02/20/25 02:14 02/22/25 10:48 Ondansetron Inj 2 Mg/Ml Inj 2 Ml IV 03/22/25 02:13 4 mg Q8HR PRN Administration NAUSEA OR VOMITING Protocol Pantoprazole Sodium 40 mg 02/20/25 09:00 02/22/25 10:48 Pantoprazole 40 Mg Tablet PO 03/22/25 08:59 40 mg QDAY ANDRES Administration Polyethylene Glycol 17 gm 02/19/25 22:14 Polyethylene Glycol 17 Gm Packet PO 03/22/25 08:59 QDAY PRN constipation Sennosides 1 tab 02/19/25 22:15 Senna Tablet PO 03/21/25 22:13 QDAY PRN CONSTIPATION Protocol Sevelamer Carbonate 800 mg 02/20/25 08:00 02/22/25 09:37 Sevelamer Carbonate 800 Mg Tablet PO 03/22/25 07:59 Not Given TIDWM ANDRES Plan Assessment and plan Summary: The patient is a 69-year-old female with previous medical history of hypertension, HFrEF EF 50-55% 05/2024, end-stage liver disease, esophageal varices status post band ligation, CKD, type 2 diabetes, hypothyroidism who was brought to the ED after her PCP sent her. Patient is going to be admitted for hypertensive urgency and CHF exacerbation treatment and management. #Acute on chronic renal failure #New onset dialysis 02/22/2025 #JAVI on CKD #Status post permanent dialysis catheter placement 02/22/2025 In May 2024 creatinine was 1.7, EGFR 32. 02/19/2025 BUN 52 creatinine 2.9, EGFR 17. Patient's continuous linter drier operator is Dr. Jean. Kidney function decrease could be in the setting of dehydration, cardiorenal syndrome, end-stage liver disease and/or long-term hypertension and diabetes. Patient has minimal urine output, worsening of renal function noted, nephrology recommended dialysis, family agrees with dialysis. Hepatitis panel negative Plan: - S/p dialysis catheter placement, started on hemodialysis, for session today - Nephrology Dr. Jean consulted, recommendations are appreciated - Pending tuberculin skin test - Strict I's and O's - Resumed home Sevelamer #Acute decompensated heart failure #HFrEF EF 50 to 55% Patient reports feeling short of breath and increased leg swelling. Saturates well on room air. Xray showed moderate CHF. BNP >3280. ECHO 02/20/2025: Normal LV size and function. Mild LVH. Estimated EF 50-55%. Stage 1 DD RV is normal in size and systolic function. Estimated RVSP, 52 mmHg. RAP 15. Mildly increased LA volume 37.6 mL/m?. RA cavity size is mildly increased. Mild MR. Mild thickening of the aortic AV. Mild to moderate TR. Dilated IVC. Plan: - Continue inpatient dialysis - Strict I's and O's - Daily weights - Continue home carvedilol - Fluid restriction 1500 ml - Keep Mg above 2 and K above 4 #Hypertensive emergency Initial blood pressure 190/76, systolic blood pressure went up to 210s, patient received hydralazine 10 mg IV twice, systolic blood pressure went down to 160s. The plan is gradually decrease blood pressure by 5 to 15% over the next 23 hours. Plan: - Hydralazine 10 mg as needed if SBP >180 - Resumed home hydralazine 10 mg TID - Resumed home carvedilol - Nifedipine XL 60 mg qday #Type 2 diabetes Plan: - A1c 7.2% - Insulin sliding scale - Hypoglycemia protocol #Hyponatremia #Hypokalemia #Hypomagnesemia Correct and replace electrolytes as needed #Hypothyroidism -Continue levothyroxine 50 mcg daily #Normocytic Anemia Most likely in the setting of chronic disease Iron panel indicated low iron Plan: - Monitor CBC, transfuse if hemoglobin less than 7 - Consider iron suppluments on discharge #History of diabetic foot infection s/p 2nd toe amputation. Plan: - Wound care #History of liver cirrhosis, compensated Tbilli 0.6, AST 16, ALT 8. Plan: - Monitor daily CMP - Monitor for signs of decompensation Health maintenance: FEN: carbohydrate consistent, fluid restriction 1500 ml, Nephrology consulted DVT prophylaxis: heparin sc GI prophylaxis: Pantoprazole Dispo: telemetry CODE STATUS: Full code This patient care was discussed with my attending Dr. Ureña and Dr Leland MD PGY-2 Laure Green PGY1 Disclaimer: Minor errors in protection specialist may be present since this note was dictated by speech recognition software. Attending Provider Attestation/Addendum I have discussed and was present for the essential components of the history, physical examination, diagnosis, and treatment plan with the resident. I agree with the patient's care as documented by the resident and amended herein by me. Yasmany Ureña DO. Patient seen and evaluated this AM. No acute events overnight, vital signs stable, patient afebrile, blood pressure elevated this morning 172/82. Significant labs include a stable hemoglobin 9.9, sodium 128, BUN 60 and creatinine up trended to 4. Hemodialysis catheter has been placed and the patient will start on hemodialysis today and likely complete 2 more sessions before discharge. Will continue to monitor blood pressure closely, will not add a new agent today considering hemodialysis however will reassess after her session is complete. Nephrology consulted, appreciate recommendations Although this document has been carefully reviewed, there may still be some phonetic and other typographical errors. These errors are purely grammatical due to imperfections in the software program and should not be construed in any way to compromise the substance of the patient's medical care during this visit.
[2025-02-22] MEDS: SEVELAMER CARBONATE 800 MG TABLET PO ×2 (12:09→17:43)
--- NOTE | 2025-02-22 13:34 | ESPR_ITS ---
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 Family has decided to go with dialysis and as such, IR placed a tunneled dialysis catheter so we can start her on hemodialysis treatment. The patient got her tunneled dialysis catheter earlier and is just awaiting for dialysis treatment today. CURRENT MEDICATIONS: 1. Acetaminophen. 2. Atorvastatin. 3. Carvedilol. 4. Epogen 1000 units x1. 5. Furosemide. 6. Heparin. 7. Hydralazine. 8. Hydrocodone. 9. Levothyroxine. 10. Metoclopramide. 11. Nifedipine. 12. Ondansetron. 13. Protonix. 14. MiraLax. 15. Senna. 18. Sevelamer 800 mg t.i.d. daily with meals. PHYSICAL EXAMINATION: GENERAL: She is awake, alert, and oriented. Daughter by the bedside. VITAL SIGNS: Blood pressure of 163/62. Heart rate of 90. HEENT: Anicteric sclerae. Normocephalic. NECK: Supple. No JVD. CHEST AND LUNGS: Symmetrical expansion. Clear breath sounds. HEART: Without murmur. ABDOMEN: Soft, nontender. EXTREMITIES: No edema LABORATORY DATA: Hemoglobin 9.9, WBC 5400, platelet count 204,000. Sodium 128, potassium 4.7, chloride 96, CO2 of 20.9, BUN 60, creatinine 4, glucose 94 mg. ASSESSMENT: 1. End-stage renal disease secondary to type 1 hepatorenal syndrome and diabetic nephropathy. 2. Type 1 hepatorenal syndrome. 3. Anemia of chronic kidney disease. 4. Uremia. 5. Hypertension. 6. History of anasarca, improved with diuretics. PLAN: The patient will have her first dialysis today, then tomorrow and hopefully we can get her to a chronic dialysis unit for continuation of dialysis treatment. After today, next dialysis will be tomorrow. DT: 13:06:24 TT: 13:32:00 Ref: [id number] - TID: [id number] MTDD
[2025-02-22] MEDS: HEPARIN SOD INJ 1000 UNIT/ML VIAL 10 ML 3500 UNIT INDWELLCAT (17:29)
[2025-02-22] MEDS: carVEDILOL 3.125 MG TABLET 6.25 MG PO (17:42)
--- NOTE | 2025-02-22 17:48 | PC.NURSE ---
BP 172/67 Dr. Green notified
[2025-02-22] MEDS: hydrALAZINE HCL 10 MG TABLET PO (21:48)
[2025-02-22] MEDS: ATORVASTATIN CALCIUM 20 MG TABLET 40 MG PO (21:48)
[2025-02-23] VITALS (32 sets, daily range): BP systolic 146–212; BP diastolic 52–91; PULSE 58–92; RESP 14–19; TEMP 36.2–36.8; O2SAT 95–98; BMI 28.3
[2025-02-23] MEDS: hydrALAZINE INJ 20 MG/ML VIAL 10 MG IV ×2 (01:36→14:34)
[2025-02-23] MEDS: ACETAMINOPHEN 325 MG TABLET 650 MG PO ×2 (01:42→12:31)
--- NOTE | 2025-02-23 02:47 | PC.LAC ---
Pt's BP 173/64, 197/77, Hydralazine was given at 0136, BP 151/76 1 hr after hydralazine was given.
[2025-02-23] MEDS: hydrALAZINE HCL 10 MG TABLET PO ×2 (05:49→13:10)
[2025-02-23] MEDS: LEVOTHYROXINE SODIUM 25 MCG TABLET 50 MCG PO (05:49)
[2025-02-23] MEDS: HYDROcodone/APAP 5/325 TABLET 1 TAB PO (06:01)
[2025-02-23 06:03] LABS: Basophils % (Auto) 0 % (0-2.5); Eosinophils # (Auto) 0.1 Thou/mm3 (0.0-0.5); Eosinophils % (Auto) 2 % (0-10); Hematocrit 28.9 % (36.0-46.0); Hemoglobin 9.8 g/dL (12.0-16.0); Immature Granulocytes % (Auto) 0 % (0-0); Immature Granulocytes Auto 0.02 Thou/mm3 (0.00-0.00); Lymphocytes # (Auto) 1.1 Thou/mm3 (1.0-4.8); Lymphocytes % (Auto) 23 % (10-50); Mean Corpuscular HGB Conc 33.9 g/dl (31.0-37.0); Mean Corpuscular Hemoglobin 30.4 pg (25.0-35.0); Mean Corpuscular Volume 90 fL (80-100); Monocytes # (Auto) 0.5 Thou/mm3 (0.0-0.8); Monocytes % (Auto) 11 % (0-12); Neutrophils % (Auto) 63 % (37-80); Nucleated Red Blood Cell % 0 /100 WBC (0); Platelet Count 167 Thou/mm3 (140-440); Red Blood Count 3.22 Miln/mm3 (4.00-5.20); White Blood Count 4.7 Thou/mm3 (3.6-11.0)
[2025-02-23 06:43] LABS: Alanine Aminotransferase 8 U/L (10-49); Albumin, Serum 3.6 gm/dL (3.4-4.8); Albumin/Globulin Ratio 1.8 (1.2-2.2); Alkaline Phosphatase 76 U/L (46-116); Anion Gap 7 (7-16); Aspartate Amino Transferase 12 U/L (0-34); BUN/Creatinine Ratio 14 Ratio (12-20); Bilirubin,Total 0.3 mg/dL (0.3-1.2); Blood Urea Nitrogen 42 mg/dL (9-23); Calcium 8.2 mg/dL (8.3-10.6); Calcium (Corrected) 8.5 mg/dL (8.5-10.1); Carbon Dioxide 24.6 mMol/L (20.0-31.0); Chloride 100 mMol/L (98-107); Creatinine (Component) 2.9 mg/dL (0.6-1.3); Estimated Creatinine Clearance 14.6 mL/min (>60); Glucose 108 mg/dL (74-106); Osmolality,Calculated 276 (275-295); Phosphorous 3.2 mg/dL (2.4-5.1); Potassium 3.9 mMol/L (3.4-5.1); Sodium 132 mMol/L (136-145); Total Protein 5.6 gm/dL (5.7-8.2); eGFR 17 See Note
[2025-02-23] MEDS: SEVELAMER CARBONATE 800 MG TABLET PO ×3 (08:09→17:15)
[2025-02-23] MEDS: NIFEdipine XL 30 MG TABCR 60 MG PO (10:49)
[2025-02-23] MEDS: carVEDILOL 3.125 MG TABLET 6.25 MG PO ×2 (11:19→17:15)
--- NOTE | 2025-02-23 11:19 | ESPR_ITS ---
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 The patient was started on dialysis yesterday and today is her second day of dialysis. CURRENT MEDICATIONS: 1. Acetaminophen. 2. Albumin p.r.n. 3. Atorvastatin. 4. Carvedilol. 5. Heparin 5000 units subcutaneously q.12h. 6. Hydralazine 10 mg p.o. t.i.d. 7. Hydralazine 10 mg IV q.6h. p.r.n. 8. Hydrocodone 1 tablet p.o. q.6h. p.r.n. 9. Lispro sliding scale. 10. Lactulose 20 g p.o. t.i.d. p.r.n. 11. Levothyroxine 50 mcg p.o. daily. 12. Nifedipine 60 mg p.o. daily. 13. Ondansetron 4 mg IV q.8h. p.r.n. 14. Pantoprazole 40 mg p.o. daily. 15. MiraLax. 16. Senna. 17. Sevelamer 800 mg p.o. b.i.d. with meals. PHYSICAL EXAMINATION: General: She is awake, alert, and oriented. by the bedside. Vital Signs: Blood pressure of 188/77 mmHg, heart rate of 59. HEENT: Anicteric sclerae. Normocephalic. Neck: Supple. No JVD. Chest And Lungs: Symmetrical expansion. Clear breath sounds. Heart: Without murmur. Abdomen: Soft and nontender. Extremities: No edema. LABORATORY DATA: Hemoglobin 9.8, WBC 4700, platelets 167,000. Sodium 132, potassium 3.9, chloride 100, bicarbonate 24.6, BUN 42, creatinine 2.9, glucose 108, phosphorus 3.2, magnesium 2, calcium 8.5. ASSESSMENT: 1. End stage renal disease secondary to type 1 hepatorenal syndrome and diabetic nephropathy. 2. Type 1 hepatorenal syndrome. 3. Liver cirrhosis. 4. Anemia of chronic kidney disease. 5. Uremia, now resolved. 6. Hypertension, difficult to control. 7. History of anasarca, improved with diuretics. PLAN: I will start her on losartan 25 mg p.o. daily for blood pressure control. The patient will get her second dialysis treatment today and then tomorrow will be the third. We will continue supportive treatment. Once the patient has a dialysis, then she can be discharged. DT: 10:10:19 TT: 11:09:00 Ref: [id number] - TID: [id number] MTDD
--- NOTE | 2025-02-23 11:30 | PC.SS ---
Addendum entered by NEREYDA Albrecht 02/23/25 13:31: SS follow up: spoke with Kwamewolf with [facility] [address], she informs Lorna is out for lunch and will call back with an update on status. Original Note: SS follow up: faxed clinicals over to [facility] [address], notified them via phone call that patient will need outpatient HD chair time. Pending their review and response.
[2025-02-23] MEDS: HEPARIN SOD INJ 1000 UNIT/ML VIAL 10 ML 3500 UNIT INDWELLCAT (12:30)
[2025-02-23] MEDS: HEPARIN SOD INJ 5000 UNIT/ML VIAL SC ×2 (13:09→21:03)
[2025-02-23] MEDS: PANTOPRAZOLE 40 MG TABLET PO (13:10)
--- NOTE | 2025-02-23 13:44 | ESPR_ITS ---
<Statement entered by Stoney Ha MD - 02/24/25 07:38> I discussed with and supervised the safety intern physician involved in the care of this patient. Patient assessment and plan was discussed with entire medicine team, including my attending. I agree with the assessment and plan as documented by safety intern doctor. Patient care was discussed with my attending physician Dr. Niranjan Ha, PGY-2 Documentation for date of: 02/23/25 Subjective Subjective Interval history: Patient seen and examined at bedside. Patient receiving dialysis treatment today, patient second dialysis treatment. Patient's blood pressure continues to remain elevated, will increase hydralazine dose to 25, 3 times daily Pending tuberculin skin test, will follow-up with social media developer for outpatient medication. Exam Vital Signs Temp Pulse Resp BP Pulse Ox O2 Del Method O2 Flow Rate 97.5 F 63 14 179/75 H 96 Room Air 1 02/23/25 13:06 02/23/25 13:10 02/23/25 13:06 02/23/25 13:10 02/23/25 13:06 02/23/25 13:06 02/22/25 10:20 Narrative Exam General: Awake, chronically ill-appearing, generally weak. HEENT: Normocephalic, atraumatic, mucous membranes moist. Heart: Regular rate and rhythm, no murmurs. Lungs: Normal breath sounds heard bilaterally. Abdomen: Soft, nondistended, mildly diffuse tenderness, positive bowel sounds. ?No guarding or rebound tenderness. Neurologic: Alert and oriented x3, appears somnolent, no gross neurological deficit, and patient able to move all 4 extremities. Extremities: Trace tibial edema. 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 Skin: No rash or ecchymoses. Objective Labs 02/24/25 04:58 02/24/25 04:58 Labs: Laboratory Results - last 24 hr 02/23/25 05:40 WBC 4.7 RBC 3.22 L Hgb 9.8 L Hct 28.9 L MCV 90 MCH 30.4 MCHC 33.9 RDW Std Deviation 44.0 Plt Count 167 D Neut % (Auto) 63 Lymph % (Auto) 23 [place] % (Auto) 11 Eos % (Auto) 2 Baso % (Auto) 0 Neut # (Auto) 3.0 Lymph # (Auto) 1.1 [place] # (Auto) 0.5 Eos # (Auto) 0.1 Baso # (Auto) 0.0 Immature Gran # (Auto) 0.02 H Absolute Nucleated RBC 0.00 Immature Gran % 0 Nucleated RBC % 0 Sodium 132 L Potassium 3.9 D Chloride 100 Carbon Dioxide 24.6 Anion Gap 7 BUN 42 H Creatinine 2.9 H D Estim Creat Clear Calc 14.6 L eGFR 17 L BUN/Creatinine Ratio 14 Glucose 108 H Calculated Osmolality 276 Calcium 8.2 L Corrected Calcium 8.5 Phosphorus 3.2 Magnesium 2.0 Total Bilirubin 0.3 AST 12 ALT 8 L Alkaline Phosphatase 76 Total Protein 5.6 L Albumin 3.6 Globulin 2.0 L Albumin/Globulin Ratio 1.8 Quality Measures Quality Measures VTE prophylaxis Advance care planning discussed with:: patient Assessment & Plan Assessment Current Active Medications: Generic Name Dose Route Start Last Admin Trade Name Freq PRN Reason Stop Dose Admin Acetaminophen 650 mg 02/21/25 20:05 02/23/25 12:31 Acetaminophen 325 Mg Tablet PO 03/21/25 21:55 650 mg Q6H PRN Administration Fever >100.3 or pain 1-3 Hydrocodone Bitart/Acetaminophen 1 tab 02/21/25 20:06 02/23/25 06:01 Hydrocodone/Apap 5/325 Tablet PO 02/26/25 20:05 1 tab Q6HR PRN Administration Pain 4-10 Atorvastatin Calcium 40 mg 02/20/25 21:00 02/22/25 21:48 Atorvastatin Calcium 20 Mg Tablet PO 03/22/25 20:59 40 mg HS ANDRES Administration Carvedilol 6.25 mg 02/20/25 08:00 02/23/25 11:19 Carvedilol 3.125 Mg Tablet PO 03/22/25 07:59 6.25 mg BIDWM ANDRES Administration Dextrose 25 ml 02/19/25 22:00 Dextrose 50%-Water Inj 50 Ml Syringe IV 03/21/25 21:59 Q15MIN PRN BG 50-70 responsive npo pt Dextrose 50 ml 02/19/25 22:00 Dextrose 50%-Water Inj 50 Ml Syringe IV 03/21/25 21:59 Q15MIN PRN BG <50 OR BG <70 & pt unresponsive Glucagon 1 mg 02/19/25 22:00 Glucagon Inj 1 Mg Vial IM Q15MIN PRN BG <70, and no IV access Heparin Sodium (Porcine) 5,000 unit 02/19/25 22:00 02/23/25 13:09 Heparin Sod Inj 5000 Unit/Ml Vial SC 03/05/25 21:59 5,000 unit Q12H ANDRES Administration Heparin Sodium (Porcine) 3,500 unit 02/22/25 14:57 02/23/25 12:30 Heparin Sod Inj 1000 Unit/Ml Vial 10 Ml INDWELLCAT 03/08/25 14:56 3,500 unit PRN PRN Administration DIALYSIS Hydralazine HCl 10 mg 02/19/25 22:02 02/23/25 01:36 Hydralazine Inj 20 Mg/Ml Vial IV 03/21/25 22:14 10 mg Q6H PRN Administration SBP>160 Hydralazine HCl 25 mg 02/23/25 14:00 Hydralazine Hcl 25 Mg Tablet PO 03/25/25 13:59 TID ANDRES Albumin Human 25 gm in 100 mls @ 100 mls/min 02/22/25 14:03 Albuminar-25 Ivpb IV PRN PRN DIALYSIS Insulin Human Lispro 0 unit 02/20/25 07:30 02/23/25 13:15 Insulin Lispro (Admelog) 1 Unit/0.01 Ml Unit SC 03/22/25 07:29 Not Given AC ANDRES Protocol Lactulose 20 gm 02/21/25 11:38 02/21/25 11:53 Lactulose Syrup 20 Gm/30 Ml Udc PO 03/23/25 13:59 20 gm TID PRN Administration cirrhosis Protocol Levothyroxine Sodium 50 mcg 02/20/25 06:00 02/23/25 05:49 Levothyroxine Sodium 25 Mcg Tablet PO 03/22/25 05:59 50 mcg ACBR ANDRES Administration Nifedipine 60 mg 02/19/25 22:45 02/23/25 10:49 Nifedipine Xl 30 Mg Tabcr PO 03/21/25 22:44 60 mg QDAY ANDRES Administration Ondansetron HCl 4 mg 02/20/25 02:14 02/22/25 10:48 Ondansetron Inj 2 Mg/Ml Inj 2 Ml IV 03/22/25 02:13 4 mg Q8HR PRN Administration NAUSEA OR VOMITING Protocol Pantoprazole Sodium 40 mg 02/20/25 09:00 02/23/25 13:10 Pantoprazole 40 Mg Tablet PO 03/22/25 08:59 40 mg QDAY ANDRES Administration Polyethylene Glycol 17 gm 02/19/25 22:14 Polyethylene Glycol 17 Gm Packet PO 03/22/25 08:59 QDAY PRN constipation Sennosides 1 tab 02/19/25 22:15 Senna Tablet PO 03/21/25 22:13 QDAY PRN CONSTIPATION Protocol Sevelamer Carbonate 800 mg 02/20/25 08:00 02/23/25 13:09 Sevelamer Carbonate 800 Mg Tablet PO 03/22/25 07:59 800 mg TIDWM ANDRES Administration Plan Assessment and plan Summary: The patient is a 69-year-old female with previous medical history of hypertension, HFrEF EF 50-55% 05/2024, end-stage liver disease, esophageal varices status post band ligation, CKD, type 2 diabetes, hypothyroidism who was brought to the ED after her PCP sent her. Patient is going to be admitted for hypertensive urgency and CHF exacerbation treatment and management. #Acute on chronic renal failure #New onset dialysis 02/22/2025 #JAVI on CKD #Status post permanent dialysis catheter placement 02/22/2025 In May 2024 creatinine was 1.7, EGFR 32. 02/19/2025 BUN 52 creatinine 2.9, EGFR 17. Patient's compensation business partner is Dr. Jean. Kidney function decrease could be in the setting of dehydration, cardiorenal syndrome, end-stage liver disease and/or long-term hypertension and diabetes. Patient has minimal urine output, worsening of renal function noted, nephrology recommended dialysis, family agrees with dialysis. Hepatitis panel negative Plan: - S/p dialysis catheter placement, started on hemodialysis 02/22/2025, second dialysis session today - Nephrology Dr. Jean consulted, recommendations are appreciated - Pending tuberculin skin test - Strict I's and O's - Resumed home Sevelamer #Acute decompensated heart failure #HFrEF EF 50 to 55% Patient reports feeling short of breath and increased leg swelling. Saturates well on room air. Xray showed moderate CHF. BNP >3280. ECHO 02/20/2025: Normal LV size and function. Mild LVH. Estimated EF 50-55%. Stage 1 DD RV is normal in size and systolic function. Estimated RVSP, 52 mmHg. RAP 15. Mildly increased LA volume 37.6 mL/m?. RA cavity size is mildly increased. Mild MR. Mild thickening of the aortic AV. Mild to moderate TR. Dilated IVC. Plan: - Continue inpatient dialysis - Strict I's and O's - Daily weights - Continue home carvedilol - Fluid restriction 1500 ml - Keep Mg above 2 and K above 4 #Hypertensive emergency Initial blood pressure 190/76, systolic blood pressure went up to 210s, patient received hydralazine 10 mg IV twice, systolic blood pressure went down to 160s. The plan is gradually decrease blood pressure by 5 to 15% over the next 23 hours. Plan: - Hydralazine 10 mg as needed if SBP >180 - Increase hydralazine to 25 mg 3 times daily - Resumed home carvedilol - Nifedipine XL 60 mg qday #Type 2 diabetes Plan: - A1c 7.2% - Insulin sliding scale - Hypoglycemia protocol - Inpatient blood glucose levels between 140-180 #Hyponatremia #Hypokalemia #Hypomagnesemia Correct and replace electrolytes as needed #Hypothyroidism -Continue levothyroxine 50 mcg daily #Normocytic Anemia Most likely in the setting of chronic disease Iron panel indicated low iron Plan: - Monitor CBC, transfuse if hemoglobin less than 7 - Consider iron suppluments on discharge #History of diabetic foot infection s/p 2nd toe amputation. Plan: - Wound care #History of liver cirrhosis, compensated Tbilli 0.6, AST 16, ALT 8. Plan: - Monitor daily CMP - Monitor for signs of decompensation Health maintenance: FEN: carbohydrate consistent, fluid restriction 1500 ml, Nephrology consulted DVT prophylaxis: heparin sc GI prophylaxis: Pantoprazole Dispo: telemetry CODE STATUS: Full code This patient care was discussed with my attending Dr. Ureña and Dr Leland MD PGY-2 Laure Green PGY1 Disclaimer: Minor errors in color expert may be present since this note was dictated by speech recognition software. Attending Provider Attestation/Addendum I have discussed and was present for the essential components of the history, physical examination, diagnosis, and treatment plan with the resident. I agree with the patient's care as documented by the resident and amended herein by me. Yasmany Ureña DO. Although this document has been carefully reviewed, there may still be some phonetic and other typographical errors. These errors are purely grammatical due to imperfections in the software program and should not be construed in any way to compromise the substance of the patient's medical care during this visit.
[2025-02-23] MEDS: hydrALAZINE HCL 25 MG TABLET PO ×2 (14:33→21:03)
[2025-02-23] MEDS: ATORVASTATIN CALCIUM 20 MG TABLET 40 MG PO (21:03)
[2025-02-24] VITALS (27 sets, daily range): BP systolic 122–174; BP diastolic 50–72; PULSE 57–82; RESP 12–18; TEMP 36–36.9; O2SAT 91–97; BMI 28.8
[2025-02-24] MEDS: hydrALAZINE HCL 25 MG TABLET PO ×3 (05:24→20:59)
[2025-02-24] MEDS: LEVOTHYROXINE SODIUM 25 MCG TABLET 50 MCG PO (05:25)
[2025-02-24 05:45] LABS: Basophils % (Auto) 0 % (0-2.5); Eosinophils # (Auto) 0.1 Thou/mm3 (0.0-0.5); Eosinophils % (Auto) 3 % (0-10); Hematocrit 27.1 % (36.0-46.0); Hemoglobin 8.9 g/dL (12.0-16.0); Immature Granulocytes % (Auto) 0 % (0-0); Immature Granulocytes Auto 0.02 Thou/mm3 (0.00-0.00); Lymphocytes # (Auto) 1.5 Thou/mm3 (1.0-4.8); Lymphocytes % (Auto) 30 % (10-50); Mean Corpuscular HGB Conc 32.8 g/dl (31.0-37.0); Mean Corpuscular Hemoglobin 30.4 pg (25.0-35.0); Mean Corpuscular Volume 93 fL (80-100); Monocytes # (Auto) 0.7 Thou/mm3 (0.0-0.8); Monocytes % (Auto) 13 % (0-12); Neutrophils # (Auto) 2.8 Thou/mm3 (1.8-7.7); Neutrophils % (Auto) 55 % (37-80); Nucleated Red Blood Cell % 0 /100 WBC (0); Platelet Count 212 Thou/mm3 (140-440); Red Blood Count 2.93 Miln/mm3 (4.00-5.20); White Blood Count 5.2 Thou/mm3 (3.6-11.0)
[2025-02-24 06:14] LABS: Alanine Aminotransferase < 7 U/L (10-49); Albumin, Serum 3.4 gm/dL (3.4-4.8); Albumin/Globulin Ratio 1.6 (1.2-2.2); Alkaline Phosphatase 74 U/L (46-116); Anion Gap 4 (7-16); Aspartate Amino Transferase 13 U/L (0-34); BUN/Creatinine Ratio 8 Ratio (12-20); Bilirubin,Total 0.3 mg/dL (0.3-1.2); Blood Urea Nitrogen 20 mg/dL (9-23); Calcium 8.1 mg/dL (8.3-10.6); Calcium (Corrected) 8.6 mg/dL (8.5-10.1); Carbon Dioxide 28.4 mMol/L (20.0-31.0); Chloride 100 mMol/L (98-107); Creatinine (Component) 2.5 mg/dL (0.6-1.3); Globulin 2.1 gm/dL (2.3-3.5); Glucose 148 mg/dL (74-106); Magnesium 1.8 mg/dL (1.6-2.6); Osmolality,Calculated 270 (275-295); Phosphorous 2.5 mg/dL (2.4-5.1); Potassium 3.9 mMol/L (3.4-5.1); Sodium 132 mMol/L (136-145); Total Protein 5.5 gm/dL (5.7-8.2); eGFR 20 See Note
[2025-02-24] MEDS: EPOETIN ALFA INJ 1,000 UNIT/0.05 ML UNIT 10000 UNIT IV (10:33)
--- NOTE | 2025-02-24 11:25 | PC.SS ---
Securities And Real Estate Director (WAYNE) Cassidy contacted [facility] Nurse Carlie who reported that information was not received. A new referral was faxed to [phone]. Carlie was unable to provide a dialysis schedule. WAYNE will follow up with Carlie.
[2025-02-24] MEDS: PANTOPRAZOLE 40 MG TABLET PO (12:54)
[2025-02-24] MEDS: LOSARTAN POTASSIUM 25 MG TABLET PO (12:55)
[2025-02-24] MEDS: SEVELAMER CARBONATE 800 MG TABLET PO ×2 (12:55→17:23)
[2025-02-24] MEDS: NIFEdipine XL 30 MG TABCR 60 MG PO (12:55)
--- NOTE | 2025-02-24 13:36 | PD.RESPRO ---
Documentation for date of: 02/24/25 Subjective Subjective Interval history: No significant events overnight. Patient had 2.4 L HD output yesterday. Creatinine down trended from 2.9-2.5 and EGFR went up from 17-20. Patient will undergo her third hemodialysis today. Social service working getting insurance approval and hemodialysis chair. Anticipating discharge within 2 to 3 days. Exam Vital Signs Temp Pulse Resp BP Pulse Ox O2 Del Method O2 Flow Rate 96.8 F 62 17 156/69 H 96 Room Air 1 02/24/25 12:22 02/24/25 12:55 02/24/25 12:22 02/24/25 12:55 02/24/25 12:22 02/24/25 08:00 02/22/25 10:20 Narrative Exam General: Awake, chronically ill-appearing, generally weak. HEENT: Normocephalic, atraumatic, mucous membranes moist. Heart: Regular rate and rhythm, no murmurs. Lungs: Normal breath sounds heard bilaterally. Abdomen: Soft, nondistended, mildly diffuse tenderness, positive bowel sounds. ?No guarding or rebound tenderness. Neurologic: Alert and oriented x3, appears somnolent, no gross neurological deficit, and patient able to move all 4 extremities. Extremities: Trace tibial edema. 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 Skin: No rash or ecchymoses. Objective Labs 02/24/25 04:58 02/24/25 04:58 Labs: Laboratory Results - last 24 hr 02/24/25 04:58 WBC 5.2 RBC 2.93 L Hgb 8.9 L Hct 27.1 L MCV 93 MCH 30.4 MCHC 32.8 RDW Std Deviation 45.0 Plt Count 212 D Neut % (Auto) 55 Lymph % (Auto) 30 [place] % (Auto) 13 H Eos % (Auto) 3 Baso % (Auto) 0 Neut # (Auto) 2.8 Lymph # (Auto) 1.5 [place] # (Auto) 0.7 Eos # (Auto) 0.1 Baso # (Auto) 0.0 Immature Gran # (Auto) 0.02 H Absolute Nucleated RBC 0.00 Immature Gran % 0 Nucleated RBC % 0 Sodium 132 L Potassium 3.9 Chloride 100 Carbon Dioxide 28.4 Anion Gap 4 L BUN 20 Creatinine 2.5 H Estim Creat Clear Calc 17.0 L eGFR 20 L BUN/Creatinine Ratio 8 L Glucose 148 H Calculated Osmolality 270 L Calcium 8.1 L Corrected Calcium 8.6 Phosphorus 2.5 Magnesium 1.8 Total Bilirubin 0.3 AST 13 ALT < 7 L Alkaline Phosphatase 74 Total Protein 5.5 L Albumin 3.4 Globulin 2.1 L Albumin/Globulin Ratio 1.6 Quality Measures Quality Measures VTE prophylaxis Advance care planning discussed with:: other Assessment & Plan Assessment Current Active Medications: Generic Name Dose Route Start Last Admin Trade Name Freq PRN Reason Stop Dose Admin Acetaminophen 650 mg 02/21/25 20:05 02/23/25 12:31 Acetaminophen 325 Mg Tablet PO 03/21/25 21:55 650 mg Q6H PRN Administration Fever >100.3 or pain 1-3 Hydrocodone Bitart/Acetaminophen 1 tab 02/21/25 20:06 02/23/25 06:01 Hydrocodone/Apap 5/325 Tablet PO 02/26/25 20:05 1 tab Q6HR PRN Administration Pain 4-10 Atorvastatin Calcium 40 mg 02/20/25 21:00 02/23/25 21:03 Atorvastatin Calcium 20 Mg Tablet PO 03/22/25 20:59 40 mg HS ANDRES Administration Carvedilol 6.25 mg 02/20/25 08:00 02/24/25 09:17 Carvedilol 3.125 Mg Tablet PO 03/22/25 07:59 Not Given BIDWM ANDRES Dextrose 25 ml 02/19/25 22:00 Dextrose 50%-Water Inj 50 Ml Syringe IV 03/21/25 21:59 Q15MIN PRN BG 50-70 responsive npo pt Dextrose 50 ml 02/19/25 22:00 Dextrose 50%-Water Inj 50 Ml Syringe IV 03/21/25 21:59 Q15MIN PRN BG <50 OR BG <70 & pt unresponsive Glucagon 1 mg 02/19/25 22:00 Glucagon Inj 1 Mg Vial IM Q15MIN PRN BG <70, and no IV access Heparin Sodium (Porcine) 5,000 unit 02/19/25 22:00 02/24/25 09:16 Heparin Sod Inj 5000 Unit/Ml Vial SC 03/05/25 21:59 Not Given Q12H ANDRES Heparin Sodium (Porcine) 3,500 unit 02/22/25 14:57 02/23/25 12:30 Heparin Sod Inj 1000 Unit/Ml Vial 10 Ml INDWELLCAT 03/08/25 14:56 3,500 unit PRN PRN Administration DIALYSIS Hydralazine HCl 10 mg 02/19/25 22:02 02/23/25 14:34 Hydralazine Inj 20 Mg/Ml Vial IV 03/21/25 22:14 10 mg Q6H PRN Administration SBP>160 Hydralazine HCl 25 mg 02/23/25 14:00 02/24/25 05:24 Hydralazine Hcl 25 Mg Tablet PO 03/25/25 13:59 25 mg TID ANDRES Administration Albumin Human 25 gm in 100 mls @ 100 mls/min 02/22/25 14:03 Albuminar-25 Ivpb IV PRN PRN DIALYSIS Insulin Human Lispro 0 unit 02/20/25 07:30 02/24/25 12:46 Insulin Lispro (Admelog) 1 Unit/0.01 Ml Unit SC 03/22/25 07:29 Not Given AC ANDRES Protocol Lactulose 20 gm 02/21/25 11:38 02/21/25 11:53 Lactulose Syrup 20 Gm/30 Ml Udc PO 03/23/25 13:59 20 gm TID PRN Administration cirrhosis Protocol Levothyroxine Sodium 50 mcg 02/20/25 06:00 02/24/25 05:25 Levothyroxine Sodium 25 Mcg Tablet PO 03/22/25 05:59 50 mcg ACBR ANDRES Administration Losartan Potassium 25 mg 02/24/25 09:00 02/24/25 12:55 Losartan Potassium 25 Mg Tablet PO 03/26/25 08:59 25 mg QDAY ANDRES Administration Nifedipine 60 mg 02/19/25 22:45 02/24/25 12:55 Nifedipine Xl 30 Mg Tabcr PO 03/21/25 22:44 60 mg QDAY ANDRES Administration Ondansetron HCl 4 mg 02/20/25 02:14 02/22/25 10:48 Ondansetron Inj 2 Mg/Ml Inj 2 Ml IV 03/22/25 02:13 4 mg Q8HR PRN Administration NAUSEA OR VOMITING Protocol Pantoprazole Sodium 40 mg 02/20/25 09:00 02/24/25 12:54 Pantoprazole 40 Mg Tablet PO 03/22/25 08:59 40 mg QDAY ANDRES Administration Polyethylene Glycol 17 gm 02/19/25 22:14 Polyethylene Glycol 17 Gm Packet PO 03/22/25 08:59 QDAY PRN constipation Sennosides 1 tab 02/19/25 22:15 Senna Tablet PO 03/21/25 22:13 QDAY PRN CONSTIPATION Protocol Sevelamer Carbonate 800 mg 02/20/25 08:00 02/24/25 12:55 Sevelamer Carbonate 800 Mg Tablet PO 03/22/25 07:59 800 mg TIDWM ANDRES Administration Plan The patient is a 69-year-old female with previous medical history of hypertension, HFrEF EF 50-55% 05/2024, end-stage liver disease, esophageal varices status post band ligation, CKD, type 2 diabetes, hypothyroidism who was brought to the ED after her PCP sent her. Patient is going to be admitted for hypertensive urgency and CHF exacerbation treatment and management. #Acute on chronic renal failure #New onset dialysis 02/22/2025 #JAVI on CKD #Status post permanent dialysis catheter placement 02/22/2025 In May 2024 creatinine was 1.7, EGFR 32. 02/19/2025 BUN 52 creatinine 2.9, EGFR 17. Patient's franchise consultant is Dr. Jean. Kidney function decrease could be in the setting of dehydration, cardiorenal syndrome, end-stage liver disease and/or long-term hypertension and diabetes. Patient has minimal urine output, worsening of renal function noted, nephrology recommended dialysis, family agrees with dialysis. Hepatitis panel negative Plan: - S/p dialysis catheter placement, started on hemodialysis 02/22/2025, second dialysis session today - Nephrology Dr. Jean consulted, recommendations are appreciated - Pending tuberculin skin test - Strict I's and O's - Resumed home Sevelamer #Acute decompensated heart failure #HFrEF EF 50 to 55% Patient reports feeling short of breath and increased leg swelling. Saturates well on room air. Xray showed moderate CHF. BNP >3280. ECHO 02/20/2025: Normal LV size and function. Mild LVH. Estimated EF 50-55%. Stage 1 DD RV is normal in size and systolic function. Estimated RVSP, 52 mmHg. RAP 15. Mildly increased LA volume 37.6 mL/m?. RA cavity size is mildly increased. Mild MR. Mild thickening of the aortic AV. Mild to moderate TR. Dilated IVC. Plan: - Continue inpatient dialysis - Strict I's and O's - Daily weights - Continue home carvedilol - Fluid restriction 1500 ml - Keep Mg above 2 and K above 4 #Hypertensive emergency Initial blood pressure 190/76, systolic blood pressure went up to 210s, patient received hydralazine 10 mg IV twice, systolic blood pressure went down to 160s. The plan is gradually decrease blood pressure by 5 to 15% over the next 23 hours. Plan: - Hydralazine 10 mg as needed if SBP >180 - Increase hydralazine to 25 mg 3 times daily - Resumed home carvedilol - Nifedipine XL 60 mg qday #Type 2 diabetes Plan: - A1c 7.2% - Insulin sliding scale - Hypoglycemia protocol - Inpatient blood glucose levels between 140-180 #Hyponatremia #Hypokalemia #Hypomagnesemia Correct and replace electrolytes as needed #Hypothyroidism -Continue levothyroxine 50 mcg daily #Normocytic Anemia Most likely in the setting of chronic disease Iron panel indicated low iron Plan: - Monitor CBC, transfuse if hemoglobin less than 7 - Consider iron suppluments on discharge #History of diabetic foot infection s/p 2nd toe amputation. Plan: - Wound care #History of liver cirrhosis, compensated Tbilli 0.6, AST 16, ALT 8. Plan: - Monitor daily CMP - Monitor for signs of decompensation Health maintenance: FEN: carbohydrate consistent, fluid restriction 1500 ml, Nephrology consulted DVT prophylaxis: heparin sc GI prophylaxis: Pantoprazole Dispo: telemetry CODE STATUS: Full code This patient care was discussed with my attending Dr. Niranjan Ha MD PGY-2 Disclaimer: Minor errors in solar sales ambassador may be present since this note was dictated by speech recognition software. Attending Provider Attestation/Addendum I have discussed and was present for the essential components of the history, physical examination, diagnosis, and treatment plan with the resident. I agree with the patient's care as documented by the resident and amended herein by me. Yasmany Ureña DO. Patient doing well, no subjective complaints. Insurance authorization for hemodialysis chair pending, likely will not happen before Wednesday or Wednesday of next week hence we will continue to monitor the patient closely while she is here. Although this document has been carefully reviewed, there may still be some phonetic and other typographical errors. These errors are purely grammatical due to imperfections in the software program and should not be construed in any way to compromise the substance of the patient's medical care during this visit.
[2025-02-24] MEDS: carVEDILOL 3.125 MG TABLET 6.25 MG PO (17:23)
[2025-02-24] MEDS: hydrALAZINE INJ 20 MG/ML VIAL 10 MG IV (17:58)
--- NOTE | 2025-02-24 18:03 | PC.NURSE ---
bp 174/71-called and made aware. order to give hydralazine 10mg iv now.
[2025-02-24] MEDS: HEPARIN SOD INJ 5000 UNIT/ML VIAL SC (20:59)
[2025-02-24] MEDS: ATORVASTATIN CALCIUM 20 MG TABLET 40 MG PO (20:59)
[2025-02-25] VITALS (12 sets, daily range): BP systolic 119–154; BP diastolic 50–74; PULSE 56–81; RESP 12–17; TEMP 36.2–36.6; O2SAT 94–96; BMI 28.0
[2025-02-25] MEDS: LEVOTHYROXINE SODIUM 25 MCG TABLET 50 MCG PO (05:15)
[2025-02-25] MEDS: hydrALAZINE HCL 25 MG TABLET PO (05:15)
[2025-02-25 06:12] LABS: Basophils % (Auto) 0 % (0-2.5); Eosinophils # (Auto) 0.2 Thou/mm3 (0.0-0.5); Eosinophils % (Auto) 4 % (0-10); Hematocrit 30.3 % (36.0-46.0); Hemoglobin 9.8 g/dL (12.0-16.0); Immature Granulocytes % (Auto) 0 % (0-0); Immature Granulocytes Auto 0.02 Thou/mm3 (0.00-0.00); Lymphocytes # (Auto) 1.3 Thou/mm3 (1.0-4.8); Lymphocytes % (Auto) 24 % (10-50); Mean Corpuscular HGB Conc 32.3 g/dl (31.0-37.0); Mean Corpuscular Hemoglobin 29.7 pg (25.0-35.0); Mean Corpuscular Volume 92 fL (80-100); Monocytes # (Auto) 0.6 Thou/mm3 (0.0-0.8); Monocytes % (Auto) 11 % (0-12); Neutrophils # (Auto) 3.4 Thou/mm3 (1.8-7.7); Neutrophils % (Auto) 60 % (37-80); Nucleated Red Blood Cell % 0 /100 WBC (0); Platelet Count 225 Thou/mm3 (140-440); RDW Standard Deviation 45.4 fL (36.4-46.3); White Blood Count 5.7 Thou/mm3 (3.6-11.0)
[2025-02-25 07:03] LABS: Alanine Aminotransferase 8 U/L (10-49); Albumin, Serum 3.8 gm/dL (3.4-4.8); Albumin/Globulin Ratio 1.7 (1.2-2.2); Alkaline Phosphatase 90 U/L (46-116); Anion Gap 6 (7-16); Aspartate Amino Transferase 12 U/L (0-34); BUN/Creatinine Ratio 7 Ratio (12-20); Bilirubin,Total 0.4 mg/dL (0.3-1.2); Blood Urea Nitrogen 16 mg/dL (9-23); Calcium 8.5 mg/dL (8.3-10.6); Calcium (Corrected) 8.7 mg/dL (8.5-10.1); Carbon Dioxide 30.7 mMol/L (20.0-31.0); Chloride 98 mMol/L (98-107); Creatinine (Component) 2.4 mg/dL (0.6-1.3); Estimated Creatinine Clearance 17.6 mL/min (>60); Globulin 2.2 gm/dL (2.3-3.5); Glucose 174 mg/dL (74-106); Magnesium 1.8 mg/dL (1.6-2.6); Osmolality,Calculated 275 (275-295); Phosphorous 1.7 mg/dL (2.4-5.1); Potassium 4.1 mMol/L (3.4-5.1); Sodium 135 mMol/L (136-145); eGFR 21 See Note
[2025-02-25] MEDS: NIFEdipine XL 30 MG TABCR 60 MG PO (08:38)
[2025-02-25] MEDS: carVEDILOL 3.125 MG TABLET 6.25 MG PO ×2 (08:38→17:41)
[2025-02-25] MEDS: SEVELAMER CARBONATE 800 MG TABLET PO ×3 (08:39→17:41)
[2025-02-25] MEDS: LOSARTAN POTASSIUM 25 MG TABLET PO (08:39)
[2025-02-25] MEDS: PANTOPRAZOLE 40 MG TABLET PO (08:39)
[2025-02-25] MEDS: HEPARIN SOD INJ 5000 UNIT/ML VIAL SC ×2 (10:21→21:04)
[2025-02-25] MEDS: INSULIN LISPRO (AdmeLOG) 1 UNIT/0.01 ML UNIT SC (11:56)
--- NOTE | 2025-02-25 14:16 | ESPR_ITS ---
Documentation for date of: 02/25/25 Subjective Subjective Interval history: Patient had 2.5 L fluid out during hemodialysis yesterday. Creatinine down trended from 2.5-2.4. Patient still hypertensive, hydralazine was increased to 50 mg. We are still pending on insurance approval and hemodialysis chair. at bedside updated. Exam Vital Signs Temp Pulse Resp BP Pulse Ox O2 Del Method O2 Flow Rate 97.8 F 56 L 17 146/65 H 94 L Room Air 1 02/25/25 12:00 02/25/25 12:00 02/25/25 12:02/25/25 12:00 02/25/25 12:00 02/25/25 12:00 02/22/25 10:20 Narrative Exam General: Awake, chronically ill-appearing, generally weak. HEENT: Normocephalic, atraumatic, mucous membranes moist. Heart: Regular rate and rhythm, no murmurs. Lungs: Normal breath sounds heard bilaterally. Abdomen: Soft, nondistended, mildly diffuse tenderness, positive bowel sounds. ?No guarding or rebound tenderness. Neurologic: Alert and oriented x3, appears somnolent, no gross neurological deficit, and patient able to move all 4 extremities. Extremities: Trace tibial edema. 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 Skin: No rash or ecchymoses. Objective Labs 02/25/25 04:53 02/25/25 04:53 Labs: Laboratory Results - last 24 hr 02/25/25 04:53 WBC 5.7 RBC 3.30 L Hgb 9.8 L Hct 30.3 L MCV 92 MCH 29.7 MCHC 32.3 RDW Std Deviation 45.4 Plt Count 225 Neut % (Auto) 60 Lymph % (Auto) 24 [place] % (Auto) 11 Eos % (Auto) 4 Baso % (Auto) 0 Neut # (Auto) 3.4 Lymph # (Auto) 1.3 [place] # (Auto) 0.6 Eos # (Auto) 0.2 Baso # (Auto) 0.0 Immature Gran # (Auto) 0.02 H Absolute Nucleated RBC 0.00 Immature Gran % 0 Nucleated RBC % 0 Sodium 135 L Potassium 4.1 Chloride 98 Carbon Dioxide 30.7 Anion Gap 6 L BUN 16 Creatinine 2.4 H Estim Creat Clear Calc 17.6 L eGFR 21 L BUN/Creatinine Ratio 7 L Glucose 174 H Calculated Osmolality 275 Calcium 8.5 Corrected Calcium 8.7 Phosphorus 1.7 L Magnesium 1.8 Total Bilirubin 0.4 AST 12 ALT 8 L Alkaline Phosphatase 90 D Total Protein 6.0 Albumin 3.8 Globulin 2.2 L Albumin/Globulin Ratio 1.7 Quality Measures Quality Measures VTE prophylaxis Advance care planning discussed with:: patient Assessment & Plan Assessment Current Active Medications: Generic Name Dose Route Start Last Admin Trade Name Freq PRN Reason Stop Dose Admin Acetaminophen 650 mg 02/21/25 20:05 02/23/25 12:31 Acetaminophen 325 Mg Tablet PO 03/21/25 21:55 650 mg Q6H PRN Administration Fever >100.3 or pain 1-3 Atorvastatin Calcium 40 mg 02/20/25 21:00 02/24/25 20:59 Atorvastatin Calcium 20 Mg Tablet PO 03/22/25 20:59 40 mg HS ANDRES Administration Carvedilol 6.25 mg 02/20/25 08:00 02/25/25 08:38 Carvedilol 3.125 Mg Tablet PO 03/22/25 07:59 6.25 mg BIDWM ANDRES Administration Dextrose 25 ml 02/19/25 22:00 Dextrose 50%-Water Inj 50 Ml Syringe IV 03/21/25 21:59 Q15MIN PRN BG 50-70 responsive npo pt Dextrose 50 ml 02/19/25 22:00 Dextrose 50%-Water Inj 50 Ml Syringe IV 03/21/25 21:59 Q15MIN PRN BG <50 OR BG <70 & pt unresponsive Glucagon 1 mg 02/19/25 22:00 Glucagon Inj 1 Mg Vial IM Q15MIN PRN BG <70, and no IV access Heparin Sodium (Porcine) 5,000 unit 02/19/25 22:00 02/25/25 10:21 Heparin Sod Inj 5000 Unit/Ml Vial SC 03/05/25 21:59 5,000 unit Q12H ANDRES Administration Heparin Sodium (Porcine) 3,500 unit 02/22/25 14:57 02/23/25 12:30 Heparin Sod Inj 1000 Unit/Ml Vial 10 Ml INDWELLCAT 03/08/25 14:56 3,500 unit PRN PRN Administration DIALYSIS Hydralazine HCl 10 mg 02/19/25 22:02 02/24/25 17:58 Hydralazine Inj 20 Mg/Ml Vial IV 03/21/25 22:14 10 mg Q6H PRN Administration SBP>160 Hydralazine HCl 50 mg 02/25/25 14:00 Hydralazine Hcl 25 Mg Tablet PO 03/27/25 13:59 TID ANDRES Albumin Human 25 gm in 100 mls @ 100 mls/min 02/22/25 14:03 Albuminar-25 Ivpb IV PRN PRN DIALYSIS Insulin Human Lispro 0 unit 02/20/25 07:30 02/25/25 11:56 Insulin Lispro (Admelog) 1 Unit/0.01 Ml Unit SC 03/22/25 07:29 3 unit AC ANDRES Administration Protocol Lactulose 20 gm 02/21/25 11:38 02/21/25 11:53 Lactulose Syrup 20 Gm/30 Ml Udc PO 03/23/25 13:59 20 gm TID PRN Administration cirrhosis Protocol Levothyroxine Sodium 50 mcg 02/20/25 06:00 02/25/25 05:15 Levothyroxine Sodium 25 Mcg Tablet PO 03/22/25 05:59 50 mcg ACBR ANDRES Administration Losartan Potassium 25 mg 02/24/25 09:00 02/25/25 08:39 Losartan Potassium 25 Mg Tablet PO 03/26/25 08:59 25 mg QDAY ANDRES Administration Nifedipine 60 mg 02/19/25 22:45 02/25/25 08:38 Nifedipine Xl 30 Mg Tabcr PO 03/21/25 22:44 60 mg QDAY ANDRES Administration Ondansetron HCl 4 mg 02/20/25 02:14 02/22/25 10:48 Ondansetron Inj 2 Mg/Ml Inj 2 Ml IV 03/22/25 02:13 4 mg Q8HR PRN Administration NAUSEA OR VOMITING Protocol Pantoprazole Sodium 40 mg 02/20/25 09:00 02/25/25 08:39 Pantoprazole 40 Mg Tablet PO 03/22/25 08:59 40 mg QDAY ANDRES Administration Polyethylene Glycol 17 gm 02/19/25 22:14 Polyethylene Glycol 17 Gm Packet PO 03/22/25 08:59 QDAY PRN constipation Sennosides 1 tab 02/19/25 22:15 Senna Tablet PO 03/21/25 22:13 QDAY PRN CONSTIPATION Protocol Sevelamer Carbonate 800 mg 02/20/25 08:00 02/25/25 11:56 Sevelamer Carbonate 800 Mg Tablet PO 03/22/25 07:59 800 mg TIDWM ANDRES Administration Plan The patient is a 69-year-old female with previous medical history of hypertension, HFrEF EF 50-55% 05/2024, end-stage liver disease, esophageal varices status post band ligation, CKD, type 2 diabetes, hypothyroidism who was brought to the ED after her PCP sent her. Patient is going to be admitted for hypertensive urgency and CHF exacerbation treatment and management. #Acute on chronic renal failure #New onset dialysis 02/22/2025 #JAVI on CKD #Status post permanent dialysis catheter placement 02/22/2025 In May 2024 creatinine was 1.7, EGFR 32. 02/19/2025 BUN 52 creatinine 2.9, EGFR 17. Patient's cancer program director is Dr. Jean. Kidney function decrease could be in the setting of dehydration, cardiorenal syndrome, end-stage liver disease and/or long-term hypertension and diabetes. Patient has minimal urine output, worsening of renal function noted, nephrology recommended dialysis, family agrees with dialysis. Hepatitis panel negative Plan: - S/p dialysis catheter placement, started on hemodialysis 02/22/2025, second dialysis session today - Nephrology Dr. Jean consulted, recommendations are appreciated - Pending tuberculin skin test - Strict I's and O's - Resumed home Sevelamer #Acute decompensated heart failure #HFrEF EF 50 to 55% Patient reports feeling short of breath and increased leg swelling. Saturates well on room air. Xray showed moderate CHF. BNP >3280. ECHO 02/20/2025: Normal LV size and function. Mild LVH. Estimated EF 50-55%. Stage 1 DD RV is normal in size and systolic function. Estimated RVSP, 52 mmHg. RAP 15. Mildly increased LA volume 37.6 mL/m?. RA cavity size is mildly increased. Mild MR. Mild thickening of the aortic AV. Mild to moderate TR. Dilated IVC. Plan: - Continue inpatient dialysis - Strict I's and O's - Daily weights - Continue home carvedilol - Fluid restriction 1500 ml - Keep Mg above 2 and K above 4 #Hypertensive emergency Initial blood pressure 190/76, systolic blood pressure went up to 210s, patient received hydralazine 10 mg IV twice, systolic blood pressure went down to 160s. The plan is gradually decrease blood pressure by 5 to 15% over the next 23 hours. Plan: - Hydralazine 10 mg as needed if SBP >180 - Increase hydralazine to 50 mg 3 times daily - Resumed home carvedilol - Nifedipine XL 60 mg qday #Type 2 diabetes Plan: - A1c 7.2% - Insulin sliding scale - Hypoglycemia protocol - Inpatient blood glucose levels between 140-180 #Hyponatremia #Hypokalemia #Hypomagnesemia Correct and replace electrolytes as needed #Hypothyroidism -Continue levothyroxine 50 mcg daily #Normocytic Anemia Most likely in the setting of chronic disease Iron panel indicated low iron Plan: - Monitor CBC, transfuse if hemoglobin less than 7 - Consider iron suppluments on discharge #History of diabetic foot infection s/p 2nd toe amputation. Plan: - Wound care #History of liver cirrhosis, compensated Tbilli 0.6, AST 16, ALT 8. Plan: - Monitor daily CMP - Monitor for signs of decompensation Health maintenance: FEN: carbohydrate consistent, fluid restriction 1500 ml, Nephrology consulted DVT prophylaxis: heparin sc GI prophylaxis: Pantoprazole Dispo: telemetry CODE STATUS: Full code This patient care was discussed with my attending Dr. Niranjan Ha MD PGY-2 Disclaimer: Minor errors in customer facilities supervisor may be present since this note was dictated by speech recognition software. Attending Provider Attestation/Addendum I have discussed and was present for the essential components of the history, physical examination, diagnosis, and treatment plan with the resident. I agree with the patient's care as documented by the resident and amended herein by me. Yasmany Ureña DO. Patient seen and evaluated this AM. No acute events overnight, vital signs stable, patient afebrile, blood pressure still elevated in the 150s hence will uptitrate likely BP medications. Phosphorus low at 1.7, BUN 16, creatinine 2.4, still pending HD chair authorization, likely will not happen before early next week. Continue to monitor closely while she is here Although this document has been carefully reviewed, there may still be some phonetic and other typographical errors. These errors are purely grammatical due to imperfections in the software program and should not be construed in any way to compromise the substance of the patient's medical care during this visit.
[2025-02-25] MEDS: hydrALAZINE HCL 25 MG TABLET 50 MG PO ×2 (15:21→21:04)
[2025-02-25] MEDS: ATORVASTATIN CALCIUM 20 MG TABLET 40 MG PO (21:04)
[2025-02-26] VITALS (16 sets, daily range): BP systolic 119–140; BP diastolic 58–85; PULSE 57–65; RESP 13–20; TEMP 36.1–36.6; O2SAT 94–98; BMI 28.3
[2025-02-26] MEDS: LEVOTHYROXINE SODIUM 25 MCG TABLET 50 MCG PO (05:13)
[2025-02-26] MEDS: hydrALAZINE HCL 25 MG TABLET 50 MG PO ×3 (05:13→21:11)
--- NOTE | 2025-02-26 06:31 | PC.NURSE ---
patient arrived to room 382 via bed, call light and belongings within reach, patient states does not need anything at this time.
[2025-02-26 06:32] LABS: Basophils % (Auto) 0 % (0-2.5); Eosinophils # (Auto) 0.3 Thou/mm3 (0.0-0.5); Eosinophils % (Auto) 5 % (0-10); Hemoglobin 9.7 g/dL (12.0-16.0); Immature Granulocytes % (Auto) 1 % (0-0); Immature Granulocytes Auto 0.03 Thou/mm3 (0.00-0.00); Lymphocytes # (Auto) 1.5 Thou/mm3 (1.0-4.8); Lymphocytes % (Auto) 26 % (10-50); Mean Corpuscular HGB Conc 32.3 g/dl (31.0-37.0); Mean Corpuscular Hemoglobin 29.8 pg (25.0-35.0); Mean Corpuscular Volume 92 fL (80-100); Monocytes # (Auto) 0.5 Thou/mm3 (0.0-0.8); Monocytes % (Auto) 9 % (0-12); Neutrophils # (Auto) 3.5 Thou/mm3 (1.8-7.7); Neutrophils % (Auto) 59 % (37-80); Nucleated Red Blood Cell % 0 /100 WBC (0); Platelet Count 198 Thou/mm3 (140-440); RDW Standard Deviation 45.6 fL (36.4-46.3); Red Blood Count 3.25 Miln/mm3 (4.00-5.20); White Blood Count 5.9 Thou/mm3 (3.6-11.0)
[2025-02-26 06:57] LABS: Alanine Aminotransferase < 7 U/L (10-49); Albumin, Serum 3.6 gm/dL (3.4-4.8); Albumin/Globulin Ratio 1.6 (1.2-2.2); Alkaline Phosphatase 81 U/L (46-116); Anion Gap 7 (7-16); Aspartate Amino Transferase 10 U/L (0-34); BUN/Creatinine Ratio 8 Ratio (12-20); Bilirubin,Total 0.4 mg/dL (0.3-1.2); Blood Urea Nitrogen 30 mg/dL (9-23); Calcium 8.4 mg/dL (8.3-10.6); Calcium (Corrected) 8.7 mg/dL (8.5-10.1); Carbon Dioxide 28.9 mMol/L (20.0-31.0); Chloride 93 mMol/L (98-107); Creatinine (Component) 3.7 mg/dL (0.6-1.3); Estimated Creatinine Clearance 11.5 mL/min (>60); Globulin 2.2 gm/dL (2.3-3.5); Glucose 167 mg/dL (74-106); Magnesium 1.8 mg/dL (1.6-2.6); Osmolality,Calculated 269 (275-295); Phosphorous 1.7 mg/dL (2.4-5.1); Potassium 4.4 mMol/L (3.4-5.1); Sodium 129 mMol/L (136-145); Total Protein 5.8 gm/dL (5.7-8.2); eGFR 13 See Note
[2025-02-26] MEDS: INSULIN LISPRO (AdmeLOG) 1 UNIT/0.01 ML UNIT SC ×3 (07:33→16:58)
[2025-02-26] MEDS: carVEDILOL 3.125 MG TABLET 6.25 MG PO ×2 (07:33→16:58)
[2025-02-26] MEDS: SEVELAMER CARBONATE 800 MG TABLET PO ×2 (07:33→11:17)
[2025-02-26] MEDS: NIFEdipine XL 30 MG TABCR 60 MG PO (08:17)
[2025-02-26] MEDS: LACTULOSE SYRUP 20 GM/30 ML UDC PO (08:17)
[2025-02-26] MEDS: POLYETHYLENE GLYCOL 17 GM PACKET PO (08:18)
[2025-02-26] MEDS: PANTOPRAZOLE 40 MG TABLET PO (08:18)
[2025-02-26] MEDS: LOSARTAN POTASSIUM 25 MG TABLET PO (08:18)
[2025-02-26] MEDS: SENNA TABLET 1 TAB PO (08:18)
[2025-02-26] MEDS: HEPARIN SOD INJ 5000 UNIT/ML VIAL SC ×2 (09:24→21:12)
--- NOTE | 2025-02-26 11:33 | PC.SS ---
Follow up note: New dialysis with Dr. Jean at [facility] D[facility]. Pt will return home upon dc.
--- NOTE | 2025-02-26 13:05 | ESPR_ITS ---
<Statement entered by Stoney Ha MD - 02/27/25 08:05> I discussed with and supervised the internal combustion engine assembler physician involved in the care of this patient. Patient assessment and plan was discussed with entire medicine team, including my attending. I agree with the assessment and plan as documented by internal combustion engine assembler doctor. Patient care was discussed with my attending physician Dr. Niranjan Ha, PGY-2 Documentation for date of: 02/26/25 Subjective Subjective Interval history: Patient seen and examined at bedside. Patient has no current complaints, is pending insurance authorization for dialysis chair. Labs and vitals reviewed Phosphorus 1.7, will hold sevelamer. Exam Vital Signs Temp Pulse Resp BP Pulse Ox O2 Del Method O2 Flow Rate 97.1 F 57 L 13 139/61 H 96 Room Air 1 02/26/25 08:00 02/26/25 11:49 02/26/25 08:00 02/26/25 08:18 02/26/25 08:00 02/26/25 08:00 02/22/25 10:20 Narrative Exam General: Awake, chronically ill-appearing, generally weak. HEENT: Normocephalic, atraumatic, mucous membranes moist. Heart: Regular rate and rhythm, no murmurs. Lungs: Normal breath sounds heard bilaterally. Abdomen: Soft, nondistended, mildly diffuse tenderness, positive bowel sounds. ?No guarding or rebound tenderness. Neurologic: Alert and oriented x3, appears somnolent, no gross neurological deficit, and patient able to move all 4 extremities. Extremities: Trace tibial edema. 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 Skin: No rash or ecchymoses. Objective Labs 02/26/25 05:30 02/26/25 05:30 Labs: Laboratory Results - last 24 hr 02/26/25 05:30 WBC 5.9 RBC 3.25 L Hgb 9.7 L Hct 30.0 L MCV 92 MCH 29.8 MCHC 32.3 RDW Std Deviation 45.6 Plt Count 198 Neut % (Auto) 59 Lymph % (Auto) 26 [place] % (Auto) 9 Eos % (Auto) 5 Baso % (Auto) 0 Neut # (Auto) 3.5 Lymph # (Auto) 1.5 [place] # (Auto) 0.5 Eos # (Auto) 0.3 Baso # (Auto) 0.0 Immature Gran # (Auto) 0.03 H Absolute Nucleated RBC 0.00 Immature Gran % 1 H Nucleated RBC % 0 Sodium 129 L Potassium 4.4 Chloride 93 L Carbon Dioxide 28.9 Anion Gap 7 BUN 30 H Creatinine 3.7 H D Estim Creat Clear Calc 11.5 L eGFR 13 L* BUN/Creatinine Ratio 8 L Glucose 167 H Calculated Osmolality 269 L Calcium 8.4 Corrected Calcium 8.7 Phosphorus 1.7 L Magnesium 1.8 Total Bilirubin 0.4 AST 10 ALT < 7 L Alkaline Phosphatase 81 Total Protein 5.8 Albumin 3.6 Globulin 2.2 L Albumin/Globulin Ratio 1.6 Quality Measures Quality Measures VTE prophylaxis Advance care planning discussed with:: patient Assessment & Plan Assessment Current Active Medications: Generic Name Dose Route Start Last Admin Trade Name Freq PRN Reason Stop Dose Admin Acetaminophen 650 mg 02/21/25 20:05 02/23/25 12:31 Acetaminophen 325 Mg Tablet PO 03/21/25 21:55 650 mg Q6H PRN Administration Fever >100.3 or pain 1-3 Atorvastatin Calcium 40 mg 02/20/25 21:00 02/25/25 21:04 Atorvastatin Calcium 20 Mg Tablet PO 03/22/25 20:59 40 mg HS ANDRES Administration Carvedilol 6.25 mg 02/20/25 08:00 02/26/25 07:33 Carvedilol 3.125 Mg Tablet PO 03/22/25 07:59 6.25 mg BIDWM ANDRES Administration Dextrose 25 ml 02/19/25 22:00 Dextrose 50%-Water Inj 50 Ml Syringe IV 03/21/25 21:59 Q15MIN PRN BG 50-70 responsive npo pt Dextrose 50 ml 02/19/25 22:00 Dextrose 50%-Water Inj 50 Ml Syringe IV 03/21/25 21:59 Q15MIN PRN BG <50 OR BG <70 & pt unresponsive Glucagon 1 mg 02/19/25 22:00 Glucagon Inj 1 Mg Vial IM Q15MIN PRN BG <70, and no IV access Heparin Sodium (Porcine) 5,000 unit 02/19/25 22:00 02/26/25 09:24 Heparin Sod Inj 5000 Unit/Ml Vial SC 03/05/25 21:59 5,000 unit Q12H ANDRES Administration Heparin Sodium (Porcine) 3,500 unit 02/22/25 14:57 02/23/25 12:30 Heparin Sod Inj 1000 Unit/Ml Vial 10 Ml INDWELLCAT 03/08/25 14:56 3,500 unit PRN PRN Administration DIALYSIS Hydralazine HCl 10 mg 02/19/25 22:02 02/24/25 17:58 Hydralazine Inj 20 Mg/Ml Vial IV 03/21/25 22:14 10 mg Q6H PRN Administration SBP>160 Hydralazine HCl 50 mg 02/25/25 14:00 02/26/25 05:13 Hydralazine Hcl 25 Mg Tablet PO 03/27/25 13:59 50 mg TID ANDRES Administration Albumin Human 25 gm in 100 mls @ 100 mls/min 02/22/25 14:03 Albuminar-25 Ivpb IV PRN PRN DIALYSIS Insulin Human Lispro 0 unit 02/20/25 07:30 02/26/25 11:17 Insulin Lispro (Admelog) 1 Unit/0.01 Ml Unit SC 03/22/25 07:29 2 unit AC ANDRES Administration Protocol Lactulose 20 gm 02/21/25 11:38 02/26/25 08:17 Lactulose Syrup 20 Gm/30 Ml Udc PO 03/23/25 13:59 20 gm TID PRN Administration cirrhosis Protocol Levothyroxine Sodium 50 mcg 02/20/25 06:00 02/26/25 05:13 Levothyroxine Sodium 25 Mcg Tablet PO 03/22/25 05:59 50 mcg ACBR ANDRES Administration Losartan Potassium 25 mg 02/24/25 09:00 02/26/25 08:18 Losartan Potassium 25 Mg Tablet PO 03/26/25 08:59 25 mg QDAY ANDRES Administration Nifedipine 60 mg 02/19/25 22:45 02/26/25 08:17 Nifedipine Xl 30 Mg Tabcr PO 03/21/25 22:44 60 mg QDAY ANDRES Administration Ondansetron HCl 4 mg 02/20/25 02:14 02/22/25 10:48 Ondansetron Inj 2 Mg/Ml Inj 2 Ml IV 03/22/25 02:13 4 mg Q8HR PRN Administration NAUSEA OR VOMITING Protocol Pantoprazole Sodium 40 mg 02/20/25 09:00 02/26/25 08:18 Pantoprazole 40 Mg Tablet PO 03/22/25 08:59 40 mg QDAY ANDRES Administration Polyethylene Glycol 17 gm 02/19/25 22:14 Polyethylene Glycol 17 Gm Packet PO 03/22/25 08:59 QDAY PRN constipation Polyethylene Glycol 17 gm 02/26/25 09:00 02/26/25 08:18 Polyethylene Glycol 17 Gm Packet PO 03/28/25 08:59 17 gm QDAY ANDRES Administration Sennosides 1 tab 02/19/25 22:15 02/26/25 08:18 Senna Tablet PO 03/21/25 22:13 1 tab QDAY PRN Administration CONSTIPATION Protocol Sevelamer Carbonate 800 mg 02/20/25 08:00 02/26/25 11:17 Sevelamer Carbonate 800 Mg Tablet PO 03/22/25 07:59 800 mg TIDWM ANDRES Administration Plan The patient is a 69-year-old female with previous medical history of hypertension, HFrEF EF 50-55% 05/2024, end-stage liver disease, esophageal varices status post band ligation, CKD, type 2 diabetes, hypothyroidism who was brought to the ED after her PCP sent her. Patient is going to be admitted for hypertensive urgency and CHF exacerbation treatment and management. #Acute on chronic renal failure #New onset dialysis 02/22/2025 #JAVI on CKD #Status post permanent dialysis catheter placement 02/22/2025 In May 2024 creatinine was 1.7, EGFR 32. 02/19/2025 BUN 52 creatinine 2.9, EGFR 17. Patient's mechanical unit repairer is Dr. Jean. Kidney function decrease could be in the setting of dehydration, cardiorenal syndrome, end-stage liver disease and/or long-term hypertension and diabetes. Patient has minimal urine output, worsening of renal function noted, nephrology recommended dialysis, family agrees with dialysis. Hepatitis panel negative tuberculin skin test negative Plan: - S/p dialysis catheter placement, started on hemodialysis 02/22/2025. - Nephrology Dr. Jean consulted, recommendations are appreciated - Strict I's and O's - Will hold sevelamer, phosphate low #Acute decompensated heart failure #HFrEF EF 50 to 55% Patient reports feeling short of breath and increased leg swelling. Saturates well on room air. Xray showed moderate CHF. BNP >3280. ECHO 02/20/2025: Normal LV size and function. Mild LVH. Estimated EF 50-55%. Stage 1 DD RV is normal in size and systolic function. Estimated RVSP, 52 mmHg. RAP 15. Mildly increased LA volume 37.6 mL/m?. RA cavity size is mildly increased. Mild MR. Mild thickening of the aortic AV. Mild to moderate TR. Dilated IVC. Plan: - Continue inpatient dialysis - Strict I's and O's - Daily weights - Continue home carvedilol - Fluid restriction 1500 ml - Keep Mg above 2 and K above 4 #Hypertensive emergency Initial blood pressure 190/76, systolic blood pressure went up to 210s, patient received hydralazine 10 mg IV twice, systolic blood pressure went down to 160s. The plan is gradually decrease blood pressure by 5 to 15% over the next 23 hours. Plan: - Hydralazine 50 mg 3 times daily - Losartan 25 mg today - Resumed home Carvedilol 6.25 BIDWM - Nifedipine XL 60 mg qday #Type 2 diabetes Plan: - A1c 7.2% - Insulin sliding scale - Hypoglycemia protocol - Inpatient blood glucose levels between 140-180 #Hyponatremia #Hypokalemia #Hypomagnesemia Correct and replace electrolytes as needed #Hypothyroidism -Continue levothyroxine 50 mcg daily #Normocytic Anemia Most likely in the setting of chronic disease Iron panel indicated low iron Plan: - Monitor CBC, transfuse if hemoglobin less than 7 - Consider iron suppluments on discharge #History of diabetic foot infection s/p 2nd toe amputation. Plan: - Wound care #History of liver cirrhosis, compensated Tbilli 0.6, AST 16, ALT 8. Plan: - Monitor daily CMP - Monitor for signs of decompensation DVT prophylaxis: Heparin subcutaneous GI prophylaxis: Protonix Diet:carbohydrate consistent, fluid restriction 1500 ml Lines: Peripheral IV Code status: Full code This patient care was discussed with my attending Dr. Ureña and Dr Ha, PGY- 2. Laure Green, PGY1 Disclaimer: Minor errors in aviculturist may be present since this note was dictated by speech recognition software. Attending Provider Attestation/Addendum I have discussed and was present for the essential components of the history, physical examination, diagnosis, and treatment plan with the resident. I agree with the patient's care as documented by the resident and amended herein by me. Yasmany Ureña DO. Patient seen and evaluated this AM. No acute events overnight, insurance authorization for hemodialysis chair pending Although this document has been carefully reviewed, there may still be some phonetic and other typographical errors. These errors are purely grammatical due to imperfections in the software program and should not be construed in any way to compromise the substance of the patient's medical care during this visit.
--- NOTE | 2025-02-26 13:55 | PC.SS ---
KINGSLEY spoke to Carlie from [facility] Dialysis with Dr. Jean who states she spoke to SS on Wednesday but she still has not received inquiry (dialysis information). SS has faxed inquiry to [facility] Dialysis.
[2025-02-26] MEDS: ATORVASTATIN CALCIUM 20 MG TABLET 40 MG PO (21:11)
--- NOTE | 2025-02-26 21:27 | ESPR_ITS ---
RE: BARBARA SMITH : 1955 DATE OF SERVICE: 02/26/2025 HISTORY OF PRESENT ILLNESS: Briefly, she is a 69-year-old [place]egalese- speaking only woman with type 2 diabetes, hypertension, stage 5 chronic kidney disease secondary to type 2 hepatorenal syndrome and diabetic nephropathy, CHF with preserved ejection fraction of 50% to 55%, liver cirrhosis, history of gastrointestinal bleeding with esophageal varices status post band ligation who presented to the emergency room on 02/19/2025 with nausea, vomiting, and uremic symptoms. The patient was started on dialysis on 02/22/2025. Last dialysis was Wednesday. CURRENT MEDICATIONS: 1. Acetaminophen. 2. Albumin. 3. Atorvastatin. 4. Carvedilol. 5. Dextrose. 6. Glucagon. 7. Hydralazine 50 mg p.o. t.i.d. 8. Lispro. 9. Lactulose. 10. Levothyroxine. 11. Losartan 25 mg daily. 12. Nifedipine 60 mg p.o. daily. 13. Ondansetron. 13. Protonix 40 mg at bedtime. 14. MiraLax 15. Senokot. 16. Sevelamer 800 mg p.o. t.i.d. Currently on hold. PHYSICAL EXAMINATION: General: Awake, alert, and oriented. by the bedside. Vital Signs: Blood pressure of 130/68, heart rate of 63. HEENT: Anicteric sclerae. Head normocephalic. Neck: Supple. No JVD. Chest and Lungs: Symmetrical expansion. Clear breath sounds. Heart: Without murmur. Abdomen: Soft. Extremities: No edema. LABORATORY DATA: Hemoglobin 9.7, white blood cell count 5,800, platelets 198,000. Sodium 139, potassium 4.4, chloride 93, CO2 of 28.9, BUN 30, creatinine 3.7, glucose 167, phosphorus 1.7, magnesium 1.8. ASSESSMENT: 1. End-stage renal disease. 2. Type 1 hepatorenal syndrome. 3. Liver cirrhosis. 4. Anemia of chronic kidney disease. 5. Uremia, now resolved. 6. Hypertension, now improved. 7. History of anasarca, now improved. PLAN: The patient is doing well. Next dialysis will be tomorrow. The patient can be discharged anytime once chair time is provided. DT: 20:34:44 TT: 21:25:00 Ref: [id number] - TID: [id number] MTDD
[2025-02-27] VITALS (28 sets, daily range): BP systolic 113–157; BP diastolic 45–70; PULSE 54–62; RESP 16–20; TEMP 36.1–36.9; O2SAT 92–98; BMI 30.4
[2025-02-27] MEDS: LEVOTHYROXINE SODIUM 25 MCG TABLET 50 MCG PO (05:35)
[2025-02-27] MEDS: hydrALAZINE HCL 25 MG TABLET 50 MG PO ×3 (05:36→21:05)
[2025-02-27 06:39] LABS: Eosinophils % (Auto) 6 % (0-10); Mean Corpuscular HGB Conc 33.1 g/dl (31.0-37.0); Monocytes # (Auto) 0.6 Thou/mm3 (0.0-0.8); Nucleated Red Blood Cell % 0 /100 WBC (0)
[2025-02-27 06:53] LABS: Basophils % (Auto) 0 % (0-2.5); Eosinophils # (Auto) 0.4 Thou/mm3 (0.0-0.5); Hematocrit 28.7 % (36.0-46.0); Hemoglobin 9.5 g/dL (12.0-16.0); Immature Granulocytes % (Auto) 1 % (0-0); Immature Granulocytes Auto 0.03 Thou/mm3 (0.00-0.00); Lymphocytes # (Auto) 1.9 Thou/mm3 (1.0-4.8); Lymphocytes % (Auto) 28 % (10-50); Mean Corpuscular Hemoglobin 29.7 pg (25.0-35.0); Mean Corpuscular Volume 90 fL (80-100); Monocytes % (Auto) 9 % (0-12); Neutrophils # (Auto) 3.7 Thou/mm3 (1.8-7.7); Neutrophils % (Auto) 56 % (37-80); Platelet Count 189 Thou/mm3 (140-440); White Blood Count 6.6 Thou/mm3 (3.6-11.0)
[2025-02-27 07:26] LABS: Alanine Aminotransferase < 7 U/L (10-49); Albumin, Serum 3.7 gm/dL (3.4-4.8); Albumin/Globulin Ratio 1.6 (1.2-2.2); Alkaline Phosphatase 82 U/L (46-116); Anion Gap 8 (7-16); Aspartate Amino Transferase 11 U/L (0-34); BUN/Creatinine Ratio 10 Ratio (12-20); Bilirubin,Total 0.4 mg/dL (0.3-1.2); Blood Urea Nitrogen 42 mg/dL (9-23); Calcium 8.5 mg/dL (8.3-10.6); Calcium (Corrected) 8.7 mg/dL (8.5-10.1); Carbon Dioxide 27.1 mMol/L (20.0-31.0); Chloride 96 mMol/L (98-107); Creatinine (Component) 4.2 mg/dL (0.6-1.3); Estimated Creatinine Clearance 10.5 mL/min (>60); Globulin 2.3 gm/dL (2.3-3.5); Glucose 149 mg/dL (74-106); Osmolality,Calculated 276 (275-295); Phosphorous 1.8 mg/dL (2.4-5.1); Potassium 4.6 mMol/L (3.4-5.1); Sodium 131 mMol/L (136-145); eGFR 11 See Note
--- NOTE | 2025-02-27 07:52 | PC.NURSE ---
Patient to dialysis via hospital bed.
[2025-02-27] MEDS: HEPARIN SOD INJ 1000 UNIT/ML VIAL 10 ML 3500 UNIT INDWELLCAT (11:13)
--- NOTE | 2025-02-27 11:22 | PC.NURSE ---
Patient back from dialysis.
[2025-02-27] MEDS: ACETAMINOPHEN 325 MG TABLET 650 MG PO (11:36)
[2025-02-27] MEDS: POLYETHYLENE GLYCOL 17 GM PACKET PO (11:36)
[2025-02-27] MEDS: LOSARTAN POTASSIUM 25 MG TABLET PO (11:37)
[2025-02-27] MEDS: PANTOPRAZOLE 40 MG TABLET PO (11:38)
[2025-02-27] MEDS: NIFEdipine XL 30 MG TABCR 60 MG PO (11:38)
[2025-02-27] MEDS: HEPARIN SOD INJ 5000 UNIT/ML VIAL SC ×2 (11:38→21:04)
--- NOTE | 2025-02-27 11:39 | PC.SS ---
KINGSLEY has followed up with Lorna at [facility] with Dr. Jean who is aware pt is ready for d/c and is waiting for dialysis chair time. Lorna states their fax machine was down yesterday. KINGSLEY has sent inquiry on [facility] and sent fax. Per Lorna, she will inform SS of the outcome by the end of the day.
[2025-02-27] MEDS: SOD PHOS ADDITIVE 22.5 MMOL in SODIUM CHLORIDE 0.9% 500 ML 500 ML 82.778 MMOL IV (12:01)
--- NOTE | 2025-02-27 13:51 | ESPR_ITS ---
<Statement entered by Stoney Ha MD - 02/28/25 08:55> I discussed with and supervised the architectural intern physician involved in the care of this patient. Patient assessment and plan was discussed with entire medicine team, including my attending. I agree with the assessment and plan as documented by architectural intern doctor. Patient care was discussed with my attending physician Dr. Josafat Ha, PGY-2 Documentation for date of: 02/27/25 Subjective Subjective Interval history: Patient seen and examined at bedside. Patient has no current complaints, is pending insurance authorization for dialysis chair. Labs and vitals reviewed Phosphorus low, replaced, will hold sevelamer. Exam Vital Signs Temp Pulse Resp BP Pulse Ox O2 Del Method O2 Flow Rate 97.9 F 58 L 17 151/69 H 95 Room Air 1 02/27/25 12:00 02/27/25 13:33 02/27/25 12:00 02/27/25 13:33 02/27/25 12:00 02/27/25 12:00 02/22/25 10:20 Narrative Exam General: Awake, chronically ill-appearing, generally weak. HEENT: Normocephalic, atraumatic, mucous membranes moist. Heart: Regular rate and rhythm, no murmurs. Lungs: Normal breath sounds heard bilaterally. Abdomen: Soft, nondistended, mildly diffuse tenderness, positive bowel sounds. ?No guarding or rebound tenderness. Neurologic: Alert and oriented x3, appears somnolent, no gross neurological deficit, and patient able to move all 4 extremities. Extremities: Trace tibial edema. 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 Skin: No rash or ecchymoses. Objective Labs 02/27/25 05:20 02/27/25 05:20 Labs: Laboratory Results - last 24 hr 02/27/25 05:20 WBC 6.6 RBC 3.20 L Hgb 9.5 L Hct 28.7 L MCV 90 MCH 29.7 MCHC 33.1 RDW Std Deviation 44.0 Plt Count 189 Neut % (Auto) 56 Lymph % (Auto) 28 [place] % (Auto) 9 Eos % (Auto) 6 Baso % (Auto) 0 Neut # (Auto) 3.7 Lymph # (Auto) 1.9 [place] # (Auto) 0.6 Eos # (Auto) 0.4 Baso # (Auto) 0.0 Immature Gran # (Auto) 0.03 H Absolute Nucleated RBC 0.00 Immature Gran % 1 H Nucleated RBC % 0 Sodium 131 L Potassium 4.6 Chloride 96 L Carbon Dioxide 27.1 Anion Gap 8 BUN 42 H Creatinine 4.2 H* D Estim Creat Clear Calc 10.5 L eGFR 11 L* BUN/Creatinine Ratio 10 L Glucose 149 H Calculated Osmolality 276 Calcium 8.5 Corrected Calcium 8.7 Phosphorus 1.8 L Magnesium 2.0 Total Bilirubin 0.4 AST 11 ALT < 7 L Alkaline Phosphatase 82 Total Protein 6.0 Albumin 3.7 Globulin 2.3 Albumin/Globulin Ratio 1.6 Quality Measures Quality Measures VTE prophylaxis Advance care planning discussed with:: patient Assessment & Plan Assessment Current Active Medications: Generic Name Dose Route Start Last Admin Trade Name Freq PRN Reason Stop Dose Admin Acetaminophen 650 mg 02/21/25 20:05 02/27/25 11:36 Acetaminophen 325 Mg Tablet PO 03/21/25 21:55 650 mg Q6H PRN Administration Fever >100.3 or pain 1-3 Atorvastatin Calcium 40 mg 02/20/25 21:00 02/26/25 21:11 Atorvastatin Calcium 20 Mg Tablet PO 03/22/25 20:59 40 mg HS ANDRES Administration Carvedilol 6.25 mg 02/20/25 08:00 02/27/25 07:53 Carvedilol 3.125 Mg Tablet PO 03/22/25 07:59 Not Given BIDWM ANDRES Dextrose 25 ml 02/19/25 22:00 Dextrose 50%-Water Inj 50 Ml Syringe IV 03/21/25 21:59 Q15MIN PRN BG 50-70 responsive npo pt Dextrose 50 ml 02/19/25 22:00 Dextrose 50%-Water Inj 50 Ml Syringe IV 03/21/25 21:59 Q15MIN PRN BG <50 OR BG <70 & pt unresponsive Glucagon 1 mg 02/19/25 22:00 Glucagon Inj 1 Mg Vial IM Q15MIN PRN BG <70, and no IV access Heparin Sodium (Porcine) 5,000 unit 02/19/25 22:00 02/27/25 11:38 Heparin Sod Inj 5000 Unit/Ml Vial SC 03/05/25 21:59 5,000 unit Q12H ANDRES Administration Heparin Sodium (Porcine) 3,500 unit 02/22/25 14:57 02/27/25 11:13 Heparin Sod Inj 1000 Unit/Ml Vial 10 Ml INDWELLCAT 03/08/25 14:56 3,500 unit PRN PRN Administration DIALYSIS Hydralazine HCl 50 mg 02/25/25 14:00 02/27/25 13:33 Hydralazine Hcl 25 Mg Tablet PO 03/27/25 13:59 50 mg TID ANDRES Administration Albumin Human 25 gm in 100 mls @ 100 mls/min 02/22/25 14:03 Albuminar-25 Ivpb IV PRN PRN DIALYSIS Sodium Phosphate 22.5 mmol/ 507.5 mls @ 82.778 mls/hr 02/27/25 09:19 02/27/25 12:01 Sodium Chloride IV 02/27/25 15:26 82.778 mls/hr X1 ONE Administration Insulin Human Lispro 0 unit 02/20/25 07:30 02/27/25 11:44 Insulin Lispro (Admelog) 1 Unit/0.01 Ml Unit SC 03/22/25 07:29 Not Given AC ANDRES Protocol Lactulose 20 gm 02/21/25 11:38 02/26/25 08:17 Lactulose Syrup 20 Gm/30 Ml Udc PO 03/23/25 13:59 20 gm TID PRN Administration cirrhosis Protocol Levothyroxine Sodium 50 mcg 02/20/25 06:00 02/27/25 05:35 Levothyroxine Sodium 25 Mcg Tablet PO 03/22/25 05:59 50 mcg ACBR ANDRES Administration Losartan Potassium 25 mg 02/24/25 09:00 02/27/25 11:37 Losartan Potassium 25 Mg Tablet PO 03/26/25 08:59 25 mg QDAY ANDRES Administration Nifedipine 60 mg 02/19/25 22:45 02/27/25 11:38 Nifedipine Xl 30 Mg Tabcr PO 03/21/25 22:44 60 mg QDAY ANDRES Administration Ondansetron HCl 4 mg 02/20/25 02:14 02/22/25 10:48 Ondansetron Inj 2 Mg/Ml Inj 2 Ml IV 03/22/25 02:13 4 mg Q8HR PRN Administration NAUSEA OR VOMITING Protocol Pantoprazole Sodium 40 mg 02/20/25 09:00 02/27/25 11:38 Pantoprazole 40 Mg Tablet PO 03/22/25 08:59 40 mg QDAY ANDRES Administration Polyethylene Glycol 17 gm 02/19/25 22:14 Polyethylene Glycol 17 Gm Packet PO 03/22/25 08:59 QDAY PRN constipation Polyethylene Glycol 17 gm 02/26/25 09:00 02/27/25 11:36 Polyethylene Glycol 17 Gm Packet PO 03/28/25 08:59 17 gm QDAY ANDRES Administration Sennosides 1 tab 02/19/25 22:15 02/26/25 08:18 Senna Tablet PO 03/21/25 22:13 1 tab QDAY PRN Administration CONSTIPATION Protocol Sevelamer Carbonate 800 mg 02/20/25 08:00 02/26/25 11:17 Sevelamer Carbonate 800 Mg Tablet PO 03/22/25 07:59 800 mg TIDWM ANDRES Administration Plan The patient is a 69-year-old female with previous medical history of hypertension, HFrEF EF 50-55% 05/2024, end-stage liver disease, esophageal varices status post band ligation, CKD, type 2 diabetes, hypothyroidism who was brought to the ED after her PCP sent her. Patient is going to be admitted for hypertensive urgency and CHF exacerbation treatment and management. #Acute on chronic renal failure #New onset dialysis 02/22/2025 #JAVI on CKD #Status post permanent dialysis catheter placement 02/22/2025 In May 2024 creatinine was 1.7, EGFR 32. 02/19/2025 BUN 52 creatinine 2.9, EGFR 17. Patient's bad credit collector is Dr. Jean. Kidney function decrease could be in the setting of dehydration, cardiorenal syndrome, end-stage liver disease and/or long-term hypertension and diabetes. Patient has minimal urine output, worsening of renal function noted, nephrology recommended dialysis, family agrees with dialysis. Hepatitis panel negative tuberculin skin test negative Plan: - S/p dialysis catheter placement, started on hemodialysis 02/22/2025. - Nephrology Dr. Jean consulted, recommendations are appreciated - Strict I's and O's - Will hold sevelamer, phosphate low #Acute decompensated heart failure #HFrEF EF 50 to 55% Patient reports feeling short of breath and increased leg swelling. Saturates well on room air. Xray showed moderate CHF. BNP >3280. ECHO 02/20/2025: Normal LV size and function. Mild LVH. Estimated EF 50-55%. Stage 1 DD RV is normal in size and systolic function. Estimated RVSP, 52 mmHg. RAP 15. Mildly increased LA volume 37.6 mL/m?. RA cavity size is mildly increased. Mild MR. Mild thickening of the aortic AV. Mild to moderate TR. Dilated IVC. Plan: - Continue inpatient dialysis - Strict I's and O's - Daily weights - Continue home carvedilol - Fluid restriction 1500 ml - Keep Mg above 2 and K above 4 #Hypertensive emergency Initial blood pressure 190/76, systolic blood pressure went up to 210s, patient received hydralazine 10 mg IV twice, systolic blood pressure went down to 160s. The plan is gradually decrease blood pressure by 5 to 15% over the next 23 hours. Plan: - Hydralazine 50 mg 3 times daily - Losartan 25 mg today - Resumed home Carvedilol 6.25 BIDWM - Nifedipine XL 60 mg qday #Type 2 diabetes Plan: - A1c 7.2% - Insulin sliding scale - Hypoglycemia protocol - Inpatient blood glucose levels between 140-180 #Hyponatremia #Hypokalemia #Hypomagnesemia #Hypophosphatemia Correct and replace electrolytes as needed #Hypothyroidism -Continue levothyroxine 50 mcg daily #Normocytic Anemia Most likely in the setting of chronic disease Iron panel indicated low iron Plan: - Monitor CBC, transfuse if hemoglobin less than 7 - Consider iron suppluments on discharge #History of diabetic foot infection s/p 2nd toe amputation. Plan: - Wound care #History of liver cirrhosis, compensated Tbilli 0.6, AST 16, ALT 8. Plan: - Monitor daily CMP - Monitor for signs of decompensation DVT prophylaxis: Heparin subcutaneous GI prophylaxis: Protonix Diet:carbohydrate consistent, fluid restriction 1500 ml Lines: Peripheral IV Code status: Full code This patient care was discussed with my attending Dr. Maurice and Dr Ha, PGY-2. Laure Green, PGY1 Disclaimer: Minor errors in customer training specialist may be present since this note was dictated by speech recognition software. Attending Provider Attestation/Addendum 69-year-old female with chronic kidney disease, liver cirrhosis, diabetes mellitus, chronic anemia, heart failure. The patient will see continue outpatient hemodialysis. Patient remained stable. Her Blood pressure is better. Continue current medications. Discussed with housestaff
--- NOTE | 2025-02-27 15:19 | ESPR_ITS ---
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 The patient was started on dialysis on 02/22/2025. Last dialysis was today at about 11:00, about 3 liters of fluid was removed. CURRENT MEDICATIONS: 1. Acetaminophen. 2. Atorvastatin. 3. Carvedilol. 4. Hydralazine. 5. Heparin 5000 units subcutaneously every 12 hours. 6. Lispro. 7. Lactulose. 8. Levothyroxine. 9. Losartan 25 mg daily. 10. Nifedipine. 11. Ondansetron. PHYSICAL EXAMINATION: GENERAL: Awake, alert, and oriented. VITAL SIGNS: Blood pressure 151/69, heart rate 58. HEENT: Anicteric sclerae. Normocephalic. Neck: Supple. No JVD. Chest And Lungs: Symmetrical expansion. Clear breath sounds. Heart: Without murmur. Abdomen: Soft and nontender. Extremities: No edema. LABORATORY DATA: Hemoglobin 9.5, WBC 6600, platelet count 189,000. Sodium 131, potassium 4.6, chloride 96, CO2 of 27.1, BUN 42, creatinine 4.2, glucose 149, calcium 8.5, phosphorus 1.8. ASSESSMENT: 1. End-stage renal disease. 2. Type 1 hepatorenal syndrome. 3. Liver cirrhosis. 4. Anemia of chronic kidney disease. 5. Uremia, now resolved. 6. Hypertension, now improved. 7. History of anasarca, now improved. PLAN: The patient had dialysis today, about 3 liters of fluid was removed. For her very low phosphorus, I will give her sodium phosphate x1. Patient once has chronic dialysis unit, should be able to be discharged anytime. DT: 14:06:27 TT: 15:17:00 Ref: [id number] - TID: [id number]
[2025-02-27] MEDS: carVEDILOL 3.125 MG TABLET 6.25 MG PO (17:38)
[2025-02-27] MEDS: INSULIN LISPRO (AdmeLOG) 1 UNIT/0.01 ML UNIT SC (17:39)
[2025-02-27] MEDS: ATORVASTATIN CALCIUM 20 MG TABLET 40 MG PO (21:05)
[2025-02-28] VITALS (10 sets, daily range): BP systolic 146–161; BP diastolic 55–73; PULSE 56–68; RESP 15–18; TEMP 36.2–36.7; O2SAT 93–98; BMI 30.5
[2025-02-28] MEDS: hydrALAZINE HCL 25 MG TABLET 50 MG PO ×2 (05:35→13:40)
[2025-02-28] MEDS: LEVOTHYROXINE SODIUM 25 MCG TABLET 50 MCG PO (05:35)
[2025-02-28 06:35] LABS: Basophils % (Auto) 0 % (0-2.5); Eosinophils # (Auto) 0.2 Thou/mm3 (0.0-0.5); Eosinophils % (Auto) 4 % (0-10); Hematocrit 27.9 % (36.0-46.0); Hemoglobin 9.3 g/dL (12.0-16.0); Immature Granulocytes % (Auto) 0 % (0-0); Immature Granulocytes Auto 0.02 Thou/mm3 (0.00-0.00); Lymphocytes # (Auto) 1.4 Thou/mm3 (1.0-4.8); Lymphocytes % (Auto) 30 % (10-50); Mean Corpuscular HGB Conc 33.3 g/dl (31.0-37.0); Mean Corpuscular Hemoglobin 30.3 pg (25.0-35.0); Mean Corpuscular Volume 91 fL (80-100); Monocytes # (Auto) 0.5 Thou/mm3 (0.0-0.8); Monocytes % (Auto) 10 % (0-12); Neutrophils # (Auto) 2.6 Thou/mm3 (1.8-7.7); Neutrophils % (Auto) 55 % (37-80); Nucleated Red Blood Cell % 0 /100 WBC (0); Platelet Count 176 Thou/mm3 (140-440); RDW Standard Deviation 44.6 fL (36.4-46.3); Red Blood Count 3.07 Miln/mm3 (4.00-5.20); White Blood Count 4.8 Thou/mm3 (3.6-11.0)
[2025-02-28] MEDS: LACTULOSE SYRUP 20 GM/30 ML UDC PO (06:38)
[2025-02-28 07:34] LABS: Alanine Aminotransferase 8 U/L (10-49); Albumin, Serum 3.7 gm/dL (3.4-4.8); Albumin/Globulin Ratio 1.8 (1.2-2.2); Alkaline Phosphatase 92 U/L (46-116); Anion Gap 9 (7-16); Aspartate Amino Transferase 11 U/L (0-34); BUN/Creatinine Ratio 9 Ratio (12-20); Bilirubin,Total 0.3 mg/dL (0.3-1.2); Blood Urea Nitrogen 30 mg/dL (9-23); Calcium 8.2 mg/dL (8.3-10.6); Calcium (Corrected) 8.4 mg/dL (8.5-10.1); Carbon Dioxide 28.3 mMol/L (20.0-31.0); Chloride 99 mMol/L (98-107); Creatinine (Component) 3.2 mg/dL (0.6-1.3); Estimated Creatinine Clearance 13.8 mL/min (>60); Globulin 2.1 gm/dL (2.3-3.5); Glucose 163 mg/dL (74-106); Magnesium 1.9 mg/dL (1.6-2.6); Osmolality,Calculated 282 (275-295); Phosphorous 4.1 mg/dL (2.4-5.1); Sodium 136 mMol/L (136-145); Total Protein 5.8 gm/dL (5.7-8.2); eGFR 15 See Note
[2025-02-28] MEDS: carVEDILOL 3.125 MG TABLET 6.25 MG PO (07:39)
[2025-02-28] MEDS: INSULIN LISPRO (AdmeLOG) 1 UNIT/0.01 ML UNIT SC ×2 (07:40→11:56)
[2025-02-28] MEDS: POLYETHYLENE GLYCOL 17 GM PACKET PO (09:29)
[2025-02-28] MEDS: NIFEdipine XL 30 MG TABCR 60 MG PO (09:30)
[2025-02-28] MEDS: HEPARIN SOD INJ 5000 UNIT/ML VIAL SC (09:30)
[2025-02-28] MEDS: LOSARTAN POTASSIUM 25 MG TABLET PO (09:30)
[2025-02-28] MEDS: CALCIUM CARBONATE 600 MG TABLET PO (09:30)
[2025-02-28] MEDS: PANTOPRAZOLE 40 MG TABLET PO (09:30)
[2025-02-28] MEDS: ACETAMINOPHEN 325 MG TABLET 650 MG PO (09:33)
--- NOTE | 2025-02-28 11:25 | PC.SS ---
Addendum entered by Radha Mckenna 02/28/25 11:39: Per dtr, pt has rollator walker at home. Spencer at [facility] is aware family will provide transportation 1st day but pt will require transport for dialysis. Original Note: SS received call from Carlie at [facility] with Dr. Jean who provided SS with dialysis chair time Wednesday at 4:15am. Carlie requested for pt to have dialysis today and 1st dialysis session is Sunday March 02, 2025 at 4:15. Carlie also requested pt go to the dialysis center tomorrow, at 9:30am to fill out paper work. SS has spoken to patient, , and dtrKristy to provide her with dialysis information. SS provided verbal d/c options for home or SNF and they refused SNF. Pt followed up with [facility], [facility] on [place] this month (day before she arrived at hospital).
--- NOTE | 2025-02-28 16:23 | PD.RESDS ---
Planned Discharge Date 02/28/25 DS: Providers Provider Date of admission: 02/19/25 22:16 Primary care physician: Mundo Allen MD Admitting Provider: Kavin Aburto MD Attending Provider on Admission: Florian Maurice MD Consults: 02/19/25 22:45 Consult to Nephrology Routine Comment: Consulting Provider: Mora Jean 02/19/25 23:06 Referral Wound Care Routine Comment: 02/28/25 10:55 Referral Physical Therapy Stat Comment: Physician Instructions: Attending Provider on DC: Florian Maurice MD Discharging Provider: Florian Maurice MD Anticipated date of discharge: 02/28/25 DS: Diagnosis Problem List Completed Was Problem List Reviewed/Reconciled?: Yes Hospital Course Hospital Course Hospital course: Hospital course: Ms. Rodrigues is a 69-year-old female with past medical history of hypertension, HFrEF EF 50-55% 05/2024, end-stage liver disease, esophageal varices status post band ligation, CKD, type 2 diabetes, hypothyroidism who presented to the emergency department on 02/19/2025 with a chief complaint of shortness of breath and generalized weakness, patient was sent by primary care physician to emergency department. Patient was found to be fluid overloaded and acute CHF exacerbation. Patient was further admitted to the hospital for further workup, progressive worsening of renal function was noted with IV diuresis, nephrology was consulted. Case discussed with patient and patient's family at bedside they were informed that patient will benefit from dialysis considering acute on chronic renal failure risks and benefits were informed, patient and patient's family agreed to proceed with dialysis. Patient had a permanent dialysis catheter placed by interventional radiology and was started on dialysis inpatient, patient's volume status improved with dialysis sessions, patient's symptoms improved. Patient's antihypertensive therapy regimen was optimized while she was inpatient, electrolytes were corrected and replace as needed. Patient received multiple dialysis sessions inpatient, hepatitis panel and tuberculin skin test was negative, further plan is to discharge patient home and follow-up with nephrology outpatient in 1 to 2 weeks. Patient was informed that her next dialysis session is on Wednesday. Patient to continue hydralazine losartan and nifedipine for blood pressure management. Patient's other diabetes medications discontinued, patient to continue Januvia 25 mg daily p.o. daily only. Patient is stable for discharge, patient to follow-up outpatient with primary care physician and nephrology. Patient responded well to hospital treatment. Discharge diagnosis: #Acute on chronic renal failure #New onset dialysis 02/22/2025 #JAVI on CKD #Status post permanent dialysis catheter placement 02/22/2025 #Acute decompensated heart failure #HFrEF EF 50 to 55% #Hypertension #Hypertensive emergency #Type 2 diabetes #Hyponatremia #Hypokalemia #Hypomagnesemia #Hypophosphatemia #Hypothyroidism #Normocytic Anemia #History of diabetic foot infection #History of liver cirrhosis, compensated Case discussed with Attending Dr. Maurice. Laure Green PGY1 Disclaimer: This note was dictated by speech recognition. Minor errors in supervisor color making may be present due to voice recognition software. Time Spent with Patient Time attestation: Total time spent providing and/or coordinating discharge services: Time spent: Greater than 30 minutes Home Health Home Health Referral Orders: 03/01/25 14:19 Home Health Referral 2 X WEEKLY Reason For Exam: CHF, new hemodiaysis Home-Bound The patient must either because of illness or injury, need the aid of supportive devices such as crutches, canes, wheelchairs, and walkers; the use of special transportation; or the assistance of another person in order to leave their place of residence; OR have a condition such that leaving his or her home is medically contraindicated. In addition, the patient also meets the following criteria: patient is normally unable to leave the home and leaving home requires considerable taxing effort. Addendum to Home Health Certification Practitioner's Certification: I certify that the patient has been under my care in the hospital and the care of attending physician (see below). We had a [id number] encounter on (see date below). My clinical findings indicate that the patient is home bound per the above criteria and the Home Health Services noted in these orders are medically necessary. The primary reason for the [id number] encounter is related to the fact that the patient requires home health services. Date Certifying Cesy-oe-Amxy Physician Encounter: 02/28/25 Physician's Name who will Assume Oversight for Services: Mundo Allen Physician's Phone No.who will Assume Oversight for Service: CLINICAL REVIEWER - Community Resources: Yes PT to Evaluate: Yes PT to evaluate and provide a treatmnet plan to increase patient's mobility and strength. Wound Care: No IV Therapy: No RN Safety Evaluation: Yes RN to evaluate and create a plan of care that will produce positive outcomes. Palliative Treatment: No Palliative treatment and evaluate the need for hospice. Home Health Aide - Personal Care: No Home Health Aide to assist with any ADL's. Exam Vital Signs Temp Pulse Resp BP Pulse Ox O2 Del Method O2 Flow Rate 98.0 F 66 18 160/73 H 96 Room Air 1 02/28/25 12:00 02/28/25 16:00 02/28/25 12:00 02/28/25 13:40 02/28/25 12:00 02/28/25 12:00 02/28/25 00:00 Narrative Exam General: Awake, chronically ill-appearing, generally weak. HEENT: Normocephalic, atraumatic, mucous membranes moist. Heart: Regular rate and rhythm, no murmurs. Lungs: Normal breath sounds heard bilaterally. Abdomen: Soft, nondistended, mildly diffuse tenderness, positive bowel sounds. ?No guarding or rebound tenderness. Neurologic: Alert and oriented x3, appears somnolent, no gross neurological deficit, and patient able to move all 4 extremities. Extremities: Trace tibial edema. 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 Skin: No rash or ecchymoses. Discharge Plan Plan Patient Disposition: Home w/HOME HEALTH Patient condition on transfer: Stable Prescriptions/Referrals Prescriptions/Med Rec: New hydralazine 50 mg tablet 50 mg PO TID 30 Days Qty: 90 0RF losartan 25 mg Tablet 25 mg PO QDAY 30 Days Qty: 30 0RF nifedipine 60 mg tablet extended release 60 mg PO QDAY 30 Days Qty: 30 0RF Januvia 25 mg tablet 25 mg PO QDAY Qty: 30 0RF Continued levothyroxine 50 mcg capsule 50 mcg PO QDAY atorvastatin 40 mg tablet 40 mg PO QDAY carvedilol 6.25 mg tablet 6.25 mg PO BID MDD 12.5 mg Qty: 60 2RF Rx Instructions: must administer with a meal/food (DME) lancet-gluc muydm-livfwa-adsml Kit See Rx Instructions .Route Qty: 1 0RF Rx Instructions: As directed (DME) pen needle, diabetic [BD Ultra-Fine Orig Pen Needle] 29 gauge x 1/2 needle See Rx Instructions .Route Qty: 100 0RF Rx Instructions: As directed (DME) Accu-Chek Guide test strips Strip See Rx Instructions .Route Qty: 100 0RF Rx Instructions: As directed pantoprazole 40 mg tablet,delayed release (DR/EC) 40 mg PO QDAY Qty: 30 0RF ferrous sulfate 325 mg (65 mg iron) tablet 325 mg PO DAILY sevelamer carbonate 800 mg tablet 800 mg PO .with meals calcium acetate 667 mg tablet 667 mg PO BID Patient Comments: TAKE 1 TABLET BY MOUTH TWICE A DAY WITH MEALS FOR 60 DAYS calcitriol 0.25 mcg capsule 0.25 mcg PO MWF Patient Comments: TAKE 1 TABLET BY MOUTH WEDNESDAY , WEDNESDAY , WEDNESDAY sodium bicarbonate 650 mg tablet 650 mg PO BID Patient Comments: TAKE 1 TABLET BY MOUTH TWICE A DAY DIRECTED Discontinued Renal-Adriel 0.8 mg tablet 1 tab PO QDAY Jardiance 10 mg tablet 10 mg PO QDAY Januvia 50 mg tablet 50 mg PO QDAY metformin 500 mg Tablet 500 mg PO BID alum-mag hydroxide-simeth [Mag-Al Plus] 200-200-20 mg/5 mL Suspension 30 ml PO TID Qty: 3000 0RF Januvia 50 mg tablet 50 mg PO QDAY Qty: 30 0RF doxycycline hyclate 100 mg tablet 100 mg PO BID Qty: 10 0RF furosemide [Lasix] 40 mg tablet 40 mg PO QDAY Qty: 30 2RF furosemide 80 mg tablet 80 mg PO BID Patient Comments: TAKE 1 TABLET BY MOUTH TWICE A DAY FOR 90 DAYS metolazone 5 mg tablet 5 mg PO BID Patient Comments: TAKE 1 TABLET BY MOUTH 30MINUTES TO 1 HOUR BEFORE EACH FUROSEMIDE DOSE TWICE A DAY FOR 90 DAYS hydralazine 10 mg tablet 10 mg PO BID Patient Comments: TAKE 1 TABLET BY MOUTH TWICE A DAY WITH FOOD FOR 60 DAYS Januvia 25 mg tablet 25 mg PO DAILY Patient Comments: TAKE 1 TABLET BY MOUTH EVERY DAY FOR 90 DAYS Referrals: Mora Jean MD [Physician] - Mundo Allen MD [Primary Care Provider] - Patient/Caregiver Discharge Instructions Other Discharge Activity Instructions:: Use nifedipine 60 mg daily, losartan 25 mg daily, hydralazine 50 mg 3 times a day for hypertension. Take Januvia 25 mg daily for diabetes management. Stop all other diabetes medication specially metformin and Jardiance. Stop medications as above. Continue medications as above. Continue outpatient dialysis, follow-up with [facility] system administrator in 1 to 2 weeks Dialysis chair time is Wednesday at 4:15am at [facility] Dialysis with Dr. Jean at [address] [place] [address] . First session is Sunday March 02, 2025 at 4:15am Follow-up with primary care physician in 1 to 2 weeks Return to emergency department if symptoms worsen.. Other Discharge Diet Instructions: Renal diet Education Materials: Kidney Failure Self Care, Coping with Kidney Failure, Acute Kidney Failure Dc Print Language: Croatian Stand Alone Forms: Dimple Award Info., Patient Portal Info Letter Discharge Order Discharge Orders: Discharge (Routine); Ordered 02/28/25 Ordered By: Laure Green Quality Discharge Quality Measures VTE prophylaxis Attestestation MD Attestation I discussed with and supervised the resident physician who took care of this patient. I agree with the assessment and discharge plan as above.
--- NOTE | 2025-03-01 10:46 | PC.CM ---
Addendum entered by Denise Sosa RN 03/02/25 09:27: I called Dr. Maurice and I let him know I needed home health orders placed if he still wanted patient to discharge with home health. He states he would put in orders. Original Note: I reviewed chart and I did not see orders for home health from . I called Dr. Green to verify he wanted home health services. He states he will talk to Dr. Maurice and have him put in orders.
--- NOTE | 2025-03-02 15:56 | PC.CM ---
Addendum entered by Denise Sosa RN 03/02/25 16:13: correction start of care date 03/06. Original Note: [facility] accepted patient. Start of care date 03/04.
== END 2025-02-28 18:08 | disposition home health service (06) | DRG 199 ==
LOC: SERX 21:49 → SERHOLD 22:18 → S2NX 02-20 00:58 → S3SX 02-26 06:24
PROVIDERS: Internal Medicine Nephrology; Nurse Practitioner Family; Admitting Provider Internal Medicine; Emergency Provider Emergency Medicine; PCP Family Medicine; Visit Provider Internal Medicine
DX: I16.1 Hypertensive emergency (principal); I13.2 Hypertensive heart and chronic kidney disease with heart failure and with stage 5 chronic kidney disease, or end stage renal disease; E78.5 Hyperlipidemia, unspecified; E11.22 Type 2 diabetes mellitus with diabetic chronic kidney disease; I25.2 Old myocardial infarction; I27.20 Pulmonary hypertension, unspecified; E03.9 Hypothyroidism, unspecified; E87.1 Hypo-osmolality and hyponatremia; E87.6 Hypokalemia; I50.23 Acute on chronic systolic (congestive) heart failure; E83.42 Hypomagnesemia; N18.6 End stage renal disease; N17.9 Acute kidney failure, unspecified; D63.1 Anemia in chronic kidney disease; K74.60 Unspecified cirrhosis of liver; K72.10 Chronic hepatic failure without coma; K76.7 Hepatorenal syndrome; E83.39 Other disorders of phosphorus metabolism; Z79.84 Long term (current) use of oral hypoglycemic drugs; Z79.890 Hormone replacement therapy; Z79.899 Other long term (current) drug therapy; Z90.49 Acquired absence of other specified parts of digestive tract; Z99.2 Dependence on renal dialysis
CPT/HCPCS: 36415; 71046; 73140; 74018; 76937; 77001; 80048; 80053; 80074; 81001; 82140; 83615; 83735; 83880; 84100; 84145; 84484; 85025; 85610; 85730; 86580; 87811; 93005; 93225; 93306; 96372; 96374; 99285; C1750; C1894; J0360; J1642; J1643; J1815; J1938; J2405; J2765; J3010; J3475; J3480; J3490; J7040; J7050; Q4081; A9270

== ENCOUNTER 2025-03-19 19:17 | Emergency (ER) | payer MEDICAID, SELFPAY ==
[2025-03-19 19:32] VITALS: BP 217/83; PULSE 78; RESP 16; TEMP 37.2; O2SAT 95
--- NOTE | 2025-03-19 19:36 | PD.EDRME ---
Rapid Medical Screening Exam RME Arrival date/time: 03/19/25 19:17 Chief Complaint: General Adult/Misc Complain Time Seen by Provider: 03/19/25 19:30 Vital signs: Vital Signs Temperature 99.0 F 03/19/25 19:32 Pulse Rate 78 03/19/25 19:32 Respiratory Rate 16 03/19/25 19:32 Blood Pressure 217/83 H 03/19/25 19:32 Pulse Oximetry (%) 95 03/19/25 19:32 Oxygen Delivery Method Room Air 03/19/25 19:32 Vital signs reviewed by provider: Yes RME Narrative: 69-year-old female presents to the ED with complaint of elevated blood pressure, nausea and vomiting, as well as low back pain. She woke up this morning with the symptoms. She denies chest pain, shortness of breath or abdominal pain. I have greeted and performed a focused initial assessment of this patient. A comprehensive ED assessment and evaluation of the patient, analysis of all test results, and completion of the medical decision making process will be conducted by additional ED providers.
--- NOTE | 2025-03-19 19:37 | XR_ITS ---
Examination: PA chest single view TECHNIQUE: Upright PA chest single view Standing time: March 19, 2025 2018 hours Comparison February 19, 2025 INDICATIONS: Vomiting and weakness hypertension shortness of breath today FINDINGS: The film is mislabeled left to right Mild CHF with pulmonary vascular congestion and perihilar edema Consider superimposed pneumonia left base Right internal jugular dialysis catheter tips right atrium IMPRESSION: Mild CHF Suspicious for early pneumonia left base
--- NOTE | 2025-03-19 19:46 | PD.EDRME ---
Rapid Medical Screening Exam RME Arrival date/time: 03/19/25 19:17 69-year-old female presents to the ED with complaint of elevated blood pressure, nausea and vomiting, as well as low back pain. She woke up this morning with the symptoms. She denies chest pain, shortness of breath or abdominal pain. I have greeted and performed a focused initial assessment of this patient. A comprehensive ED assessment and evaluation of the patient, analysis of all test results, and completion of the medical decision making process will be conducted by additional ED providers. Chief Complaint: General Adult/Misc Complain Time Seen by Provider: 03/19/25 19:30 Vital signs: Vital Signs Temperature 99.0 F 03/19/25 19:32 Pulse Rate 78 03/19/25 19:32 Respiratory Rate 16 03/19/25 19:32 Blood Pressure 217/83 H 03/19/25 19:32 Pulse Oximetry (%) 95 03/19/25 19:32 Oxygen Delivery Method Room Air 03/19/25 19:32 RME Narrative: 69-year-old female presents to the ED with complaint of elevated blood pressure, nausea and vomiting, as well as low back pain. She woke up this morning with the symptoms. She denies chest pain, shortness of breath or abdominal pain. I have greeted and performed a focused initial assessment of this patient. A comprehensive ED assessment and evaluation of the patient, analysis of all test results, and completion of the medical decision making process will be conducted by additional ED providers.
[2025-03-19 20:00] LABS: Basophils % (Auto) 0 % (0-2.5); Eosinophils # (Auto) 0.1 Thou/mm3 (0.0-0.5); Eosinophils % (Auto) 1 % (0-10); Hematocrit 32.2 % (36.0-46.0); Hemoglobin 10.5 g/dL (12.0-16.0); Immature Granulocytes % (Auto) 0 % (0-0); Immature Granulocytes Auto 0.03 Thou/mm3 (0.00-0.00); Lymphocytes # (Auto) 0.7 Thou/mm3 (1.0-4.8); Lymphocytes % (Auto) 8 % (10-50); Mean Corpuscular HGB Conc 32.6 g/dl (31.0-37.0); Mean Corpuscular Hemoglobin 30.1 pg (25.0-35.0); Mean Corpuscular Volume 92 fL (80-100); Monocytes # (Auto) 0.2 Thou/mm3 (0.0-0.8); Monocytes % (Auto) 3 % (0-12); Neutrophils # (Auto) 7.4 Thou/mm3 (1.8-7.7); Neutrophils % (Auto) 88 % (37-80); Nucleated Red Blood Cell % 0 /100 WBC (0); Platelet Count 199 Thou/mm3 (140-440); RDW Standard Deviation 48.6 fL (36.4-46.3); Red Blood Count 3.49 Miln/mm3 (4.00-5.20); White Blood Count 8.4 Thou/mm3 (3.6-11.0)
--- NOTE | 2025-03-19 20:42 | EDNOTE_ITS ---
ED General RME/HPI General Chief complaint: General Adult/Misc Complain Stated complaint: BLOOD PRESSURE HIGH Time Seen by Provider: 03/19/25 19:30 Arrival date/time: 03/19/25 19:17 CC: Nausea vomiting low back pain HPI ongoing starting this morning. The patient denies shortness of breath or chest pain. Patient noted to be hypertensive Review of the medical record show the patient was discharged February 28 from this facility for acute CHF with fluid overload that required resulted in dialysis. Patient has a left anterior dialysis shunt emerging from the chest. Patient denies any fever. RME / HPI RME / HPI narrative: 69-year-old female presents to the ED with complaint of elevated blood pressure, nausea and vomiting, as well as low back pain. She woke up this morning with the symptoms. She denies chest pain, shortness of breath or abdominal pain. I have greeted and performed a focused initial assessment of this patient. A comprehensive ED assessment and evaluation of the patient, analysis of all test results, and completion of the medical decision making process will be conducted by additional ED providers. Related Data Home Medications ?Medication ?Instructions ?Recorded ?Confirmed atorvastatin 40 mg tablet 40 mg PO QDAY 06/19/2402/20 levothyroxine 50 mcg capsule 50 mcg PO QDAY 06/19/24 0 02/21/25 calcitriol 0.25 mcg capsule 0.25 mcg PO MWF 02/21/25 0 02/21/25 calcium acetate 667 mg tablet 667 mg PO BID 02/21/25 0 02/21/25 ferrous sulfate 325 mg (65 mg 325 mg PO DAILY 02/21/25 02/21/25 iron) tablet sevelamer carbonate 800 mg tablet 800 mg PO .with meal s 02/21/25 02/21/25 sodium bicarbonate 650 mg tablet 650 mg PO BID 5 02/21/25 Previous Rx's ?Medication ?Instructions ?Recorded blood sugar diagnostic (Accu-Chek #100 ea 04/18/24 Guide test strips) lancets-blood glucose test #1 04/18/24 strips-pen needles with gauze kit pantoprazole 40 mg tablet,delayed 40 mg PO QDAY #30 ta bs 04/18/24 release pen needle, diabetic 29 gauge x #100 ea 04/18/2411/09 (BD Ultra-Fine Original Pen Needle) carvedilol 6.25 mg tablet 6.25 mg PO BID CHF #60 tabs 06/19/24 hydralazine 50 mg tablet 50 mg PO TID 30 days #90 tab s 02/28/25 losartan 25 mg tablet 25 mg PO QDAY 30 days #30 ta bs 02/28/25 nifedipine 60 mg tablet,extended 60 mg PO QDAY 30 days #30 tabs 02/28/25 release sitagliptin phosphate 25 mg tablet 25 mg PO QDAY #30 t abs 02/28/25 (Januvia) ondansetron 4 mg disintegrating 4 mg PO Q8H #10 tabs 0 03/19/25 tablet Allergies Allergy/AdvReac Type Severity Reaction Status Date / Time quetiapine (From Seroquel) AdvReac Severe hypothermia Verified 06/19/24 11:05 Review of Systems Review of Systems Narrative Review of Systems: GEN: No fever, no chills, no weight loss EYES: No discharge, no visual changes, no pain HEENT: No ear pain, no congestion, no sore throat PULM: No shortness of breath, no cough, no congestion CV: No chest pain, no dyspnea on exertion, no palpitations GI: + nausea, + vomiting, no diarrhea, no pain, no constipation : No frequency, no urgency, no dysuria MUSC/SKEL: No joint pain, + back pain SKIN: No rash PSYCH: No hallucinations, no depression HEME/LYMPH: No easy bleeding or bruising tendencies NEURO: No weakness, no headache ED Exam Narrative Physical exam: [General: In moderate discomfort but not in any acute distress Head normocephalic HEENT: Within acceptable limits Neck is supple nontender Chest equal chest rise nontender to palpation Respiratory: Clear to auscultation no wheezes crackles or rubs CV: Rate rhythm is regular no murmurs rubs or clicks Abdomen is distended secondary to body habitus soft nontender no masses positive bowel sounds all 4 quadrants Back: [place], no CVA tenderness no spinous process tenderness from cervical spine thoracic and lumbar spine Skin: Intact no petechiae rash induration ulceration or crepitus Extremities: Moving all extremity against resistance cap refill less than 2 seconds neurosensory intact. Observed standing pivoting rotating. Neuro: Awake alert oriented x2, person and place, Glascow coma 15 no focal deficits] Course Quality Measures none Orders Category Date Time Status EKG (ED ONLY) *Do not use* NOW Care 03/19/25 20:55 Completed NPO STAT Care 03/19/25 19:37 Completed EKG (ED Only) Stat Exams 03/19/25 20:55 Ordered XR chest 1V portable Stat Exams 03/19/25 19:37 Completed Amylase Stat Lab 03/19/25 19:50 Completed CBC Stat Lab 03/19/25 19:50 Completed Comprehensive Metabolic Panel Stat Lab 03/19/25 19:50 Completed Lipase Stat Lab 03/19/25 19:50 Completed Urinalysis Stat Lab 03/19/25 21:00 Completed Ondansetron Inj [Zofran Inj] Med 03/19/25 20:48 Discontinued 4 mg IV X1 ONE Ondansetron Odt [Zofran Odt] Med 03/19/25 19:40 Discontinued 4 mg PO X1 ONE Prochlorperazine Inj [Compazine Inj] Med 03/19/25 21:50 Discontinued 5 mg IM X1 ONE cloNIDine HCL [Catapres] Med 03/19/25 19:40 Discontinued 0.2 mg PO X1 ONE hydrALAZINE INJ [Apresoline Inj] Med 03/19/25 20:48 Discontinued 10 mg IV X1 ONE Vital Signs Vital signs: Vital Signs Temperature 99.0 F 03/19/25 19:32 Pulse Rate 78 03/19/25 19:32 Respiratory Rate 16 03/19/25 19:32 Blood Pressure 217/83 H 03/19/25 19:32 Pulse Oximetry (%) 95 03/19/25 19:32 Oxygen Delivery Method Room Air 03/19/25 19:32 Discharge Plan Plan Patient Disposition: HOME (Self Care) Patient condition on transfer: Stable Prescriptions/Referrals Prescriptions/Med Rec: New ondansetron 4 mg tablet,disintegrating 4 mg PO Q8H Qty: 10 0RF No Action levothyroxine 50 mcg capsule 50 mcg PO QDAY atorvastatin 40 mg tablet 40 mg PO QDAY carvedilol 6.25 mg tablet 6.25 mg PO BID MDD 12.5 mg Qty: 60 2RF Rx Instructions: must administer with a meal/food (DME) lancet-gluc usqer-mcycme-dmcbb Kit See Rx Instructions .Route Qty: 1 0RF Rx Instructions: As directed (DME) pen needle, diabetic [BD Ultra-Fine Orig Pen Needle] 29 gauge x 1/2 needle See Rx Instructions .Route Qty: 100 0RF Rx Instructions: As directed (DME) Accu-Chek Guide test strips Strip See Rx Instructions .Route Qty: 100 0RF Rx Instructions: As directed pantoprazole 40 mg tablet,delayed release (DR/EC) 40 mg PO QDAY Qty: 30 0RF ferrous sulfate 325 mg (65 mg iron) tablet 325 mg PO DAILY sevelamer carbonate 800 mg tablet 800 mg PO .with meals calcium acetate 667 mg tablet 667 mg PO BID Patient Comments: TAKE 1 TABLET BY MOUTH TWICE A DAY WITH MEALS FOR 60 DAYS calcitriol 0.25 mcg capsule 0.25 mcg PO MWF Patient Comments: TAKE 1 TABLET BY MOUTH WEDNESDAY , WEDNESDAY , WEDNESDAY sodium bicarbonate 650 mg tablet 650 mg PO BID Patient Comments: TAKE 1 TABLET BY MOUTH TWICE A DAY DIRECTED hydralazine 50 mg tablet 50 mg PO TID 30 Days Qty: 90 0RF losartan 25 mg Tablet 25 mg PO QDAY 30 Days Qty: 30 0RF nifedipine 60 mg tablet extended release 60 mg PO QDAY 30 Days Qty: 30 0RF Januvia 25 mg tablet 25 mg PO QDAY Qty: 30 0RF Referrals: No Primary/Family,Physician [Primary Care Provider] - In 1 week Problem List Clinical Impression: Hypertension, Nausea & vomiting Patient/Caregiver Discharge Instructions Education Materials: Controlling High Blood Pressure, ED Vomiting (Adult) Print Language: Bulgarian Stand Alone Forms: Dimple Award Info., Patient Portal Info Letter PA/CUSTOMS COMPLIANCE SPECIALIST Supervising Physician PA/CUSTOMS COMPLIANCE SPECIALIST Supervising Physician: Reno Velasquez ENP [facility] Clinical Information Provided by: patient and EMS Medical Records reviewed [facility] EKG Interpretation EKG #1: EKG Interpretation: EKG performed at 2107 shows ventricular rate of 85 MI interval 196 QRS of 105 QTc of [address] segment changes. Medication Administration(s) Medication Administration History Discontinued Medications Clonidine (Clonidine Hcl 0.1 Mg Tablet) 0.2 mg PO X1 ONE Stop: 03/19/25 19:41 Last Admin: 03/19/25 20:53 Dose: Not Given Documented By: EF Non-Admin Reason: Cancelled by Provider Hydralazine HCl (Hydralazine Inj 20 Mg/Ml Vial) 10 mg IV X1 ONE Stop: 03/19/25 20:49 Last Admin: 03/19/25 20:54 Dose: 10 mg Documented By: RENATO Ondansetron HCl (Ondansetron Odt 4 Mg Tabrap) 4 mg PO X1 ONE; Protocol Stop: 03/19/25 19:41 Last Admin: 03/19/25 20:53 Dose: Not Given Documented By: RENATO Non-Admin Reason: Cancelled by Provider Ondansetron HCl (Ondansetron Inj 2 Mg/Ml Inj 2 Ml) 4 mg IV X1 ONE; Protocol Stop: 03/19/25 20:49 Last Admin: 03/19/25 20:54 Dose: 4 mg Documented By: RENATO Prochlorperazine Edisylate (Prochlorperazine Inj 5 Mg/Ml Vial 2 Ml) 5 mg IM X1 ONE; Protocol Stop: 03/19/25 21:51 Last Admin: 03/19/25 22:23 Dose: 5 mg Documented By: JOHNSON
[2025-03-19 20:54] VITALS: BP 217/102; PULSE 85
[2025-03-19] MEDS: ONDANSETRON INJ 2 MG/ML INJ 2 ML 4 MG IV (20:54)
[2025-03-19] MEDS: hydrALAZINE INJ 20 MG/ML VIAL 10 MG IV (20:54)
[2025-03-19 21:12] LABS: Collection Type, Urine Clean Catch; Squamous Epithelial Cell,Urine 0 /hpf (0-5)
[2025-03-19 21:22] LABS: Bacteria,Urine Rare; Bilirubin,Urine Negative (Negative); Blood,Urine 1+ (Negative); Clarity,Urine Clear (Clear/Hazy); Color,Urine Yellow (Lt Yel-Yel); Glucose, Urine 4+ (Negative); Ketones,Urine 1+ (Negative); Leukocyte Esterase,Urine Negative (Negative); Nitrite,Urine Negative (Negative); Protein,Urine 3+ (Neg - Trace); RBC,Urine 17 /hpf (0-3); Specific Gravity,Urine 1.025 (1.001-1.035); Urobilinogen,Urine Negative mg/dL (0.0-1.0); WBC,Urine 8 /hpf (0-5)
[2025-03-19 22:21] VITALS: BP 187/96; PULSE 90; RESP 16; TEMP 37.2; O2SAT 96
[2025-03-19] MEDS: PROCHLORPERAZINE INJ 5 MG/ML VIAL 2 ML IM (22:23)
[2025-03-19 22:54] LABS: Alanine Aminotransferase 13 U/L (10-49); Albumin, Serum 4.8 gm/dL (3.4-4.8); Anion Gap 10 (7-16); Aspartate Amino Transferase 21 U/L (0-34); BUN/Creatinine Ratio 10 Ratio (12-20); Bilirubin,Total 0.7 mg/dL (0.3-1.2); Blood Urea Nitrogen 22 mg/dL (9-23); Calcium 9.2 mg/dL (8.3-10.6); Calcium (Corrected) 9.2 mg/dL (8.5-10.1); Carbon Dioxide 25.8 mMol/L (20.0-31.0); Chloride 99 mMol/L (98-107); Creatinine (Component) 2.2 mg/dL (0.6-1.3); Glucose 342 mg/dL (74-106); Osmolality,Calculated 287 (275-295); Sodium 135 mMol/L (136-145); Total Protein 7.5 gm/dL (5.7-8.2); eGFR 23 See Note
[2025-03-19 22:55] LABS: Albumin/Globulin Ratio 1.8 (1.2-2.2); Alkaline Phosphatase 140 U/L (46-116); Globulin 2.7 gm/dL (2.3-3.5); Lipase 29 U/L (12-53)
[2025-03-19 23:08] LABS: Amylase 76 U/L (30-118)
--- NOTE | 2025-03-19 23:23 | PD.EDADDENDU ---
Emergency Room Addendum Addendum Narrative: I took over the care from previous shift physician at 2300 on 03/19/2025. See previous notes for complete H & P and ED course. I reviewed all diagnostic test results. My interpretation of the EKG is My interpretation of the chest x-ray is suspicious for early pneumonia left base. Blood tests and urine tests Diagnoses include: Hypertension, Nausea, Vomiting. Treatment here included Zofran, Catapres, Compazine, Apresoline. Based on my best medical judgment, made decision no further evaluation or treatment indicated at this time. Patient understands and agrees to the discharge instructions customized and printed, see below. Tam Becker MD
[2025-03-19 23:54] VITALS: BP 130/63; PULSE 82; RESP 20; TEMP 36.8; O2SAT 95
== END 2025-03-19 23:55 | disposition home or self-care (01) ==
PROVIDERS: Physician Assistant; Emergency Provider Emergency Medicine
DX: I11.0 Hypertensive heart disease with heart failure (principal); I50.9 Heart failure, unspecified; R11.2 Nausea with vomiting, unspecified; R94.31 Abnormal electrocardiogram [ECG] [EKG]
CPT/HCPCS: 36415; 71045; 80053; 81001; 82150; 83690; 85025; 93005; 96372; 96374; 99284; J0360; J0780; J2405

== ENCOUNTER 2025-05-01 09:57 | Inpatient (IN) | payer MEDICAID, SELFPAY ==
[2025-05-01] VITALS (13 sets, daily range): BP systolic 141–199; BP diastolic 57–87; PULSE 60–66; RESP 14–18; TEMP 36.2–36.7; O2SAT 97–99; BMI 26.7
--- NOTE | 2025-05-01 | XR_ITS ---
Examinations: MRI Brain without intravenous contrast. MRA brain without intravenous contrast. MRA carotids without intravenous contrast 3-D vascular reconstructions Date and time of exam: May 01, 2025 1608 hours INDICATIONS: Onset right-sided body weakness slurred speech beginning yesterday Technique: Multiple axial and sagittal images of the brain have been obtained MRA brain carotid images without contrast obtained, including 3-D postprocessing, vascular maximum intensity projection images Findings: Sellaturcica is not enlarged. The optic chiasm and infundibular stalk are not remarkable. Prepontine and interpeduncular cisterns are not enlarged. No localized enlargement of the medulla or majo. Fourth ventricle and cerebellar tonsils normal in position. Subacute hemorrhage is not seen. Fourth ventricle is midline. Mass in the cerebellopontine angle region is not evident. 7th and 8th nerve complexes exhibits symmetry. Globes are symmetrical with no retro-orbital mass. Increased white matter signal mild Diffusion-weighted images demonstrate serpiginous small foci of restricted diffusion in the left parietal lobe, axial images 17 through 19 Mass-effect upon the ventricular system is not identified. MRA carotid images no critical carotid stenoses. 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
--- NOTE | 2025-05-01 10:14 | EKG_ITS ---
[facility] Test Date: 2025-05-01 Pat Name: BARBARA SMITH Department: Room: - Gender: Female [employer]: : 1955 Requested By: Naseem Carolina Order Number: [id number] Reading MD: Naseem Carolina Measurements Intervals [place] Rate: 65 P: 63 [place]: 166 QRS: 18 QRSD: 83 T: 55 QT: 484 QTc: 506 Interpretive Statements SINUS RHYTHM MINIMAL ST DEPRESSION [0.025+ mV ST DEPRESSION] PROLONGED QT INTERVAL Compared to ECG 02/20/2025 02:05:26 ST (T wave) deviation now present Prolonged QT interval now present /store/S0/[id number].pdf
--- NOTE | 2025-05-01 10:16 | XR_ITS ---
Examination: CT brain head without contrast. 2-D sagittal coronal reconstructions Date and time of exam: May 01, 2025 1038 hours Comparison April 24, 2024 INDICATIONS: Altered mental status onset slurred speech today CTDI: vol (mGy):46.6 DLP: (mGycm):940 Technique: Multiple CT axial sections of the brain have been obtained, 5 mm slice thickness. Contrast has not been administered. 2-D sagittal, coronal reconstructions have been obtained Low dose protocols were performed. One or more of the following dose reduction techniques were used; automated exposure control, adjustment of the mA and/or KV according to patient size, use of iterative reconstruction technique. Findings: No significant ventricular enlargement. Intra-axial or extra-axial hemorrhage density is not seen. No mass effect or midline shift Basal cisterns are not remarkable. Fourth ventricle is midline. Cranial vault intact. Impression: Negative for acute hemorrhage, mass effect or midline shift As clinically warranted, brain MRI follow-up would best assess for acute ischemic change
--- NOTE | 2025-05-01 10:22 | XR_ITS ---
Examination: CTA carotids with intravenous contrast CTA brain, head with intravenous contrast. 2-D sagittal, coronal reconstructions. 3-D reconstructions. Exam date and time: May 01, 2025 1206 hours INDICATIONS: Onset altered mental status slurred speech right-sided body weakness today CTDI: vol (mGy) 11.1 DLP: (mGycm) 114 Technique: Multiple CTA axial brain, head carotid images post intravenous contrast injection 75 cc, [id number]. 2-D sagittal, coronal reconstructions. 3-D reconstructions, 3-D post processing including vascular maximum intensity projection images. Low dose protocols were performed. One or more of the following dose reduction techniques were used; automated exposure control, adjustment of the mA and/or KV according to patient size, use of iterative reconstruction technique. Findings: Right apical scarring No significant common carotid carotid bifurcation or internal carotid artery stenoses Codominant vertebral arteries with no critical stenoses Bilateral pleural effusions No cerebral large vessel arterial occlusions or thrombus IMPRESSION: No significant neck arterial stenoses No cerebral large vessel arterial occlusions or thrombus Brain MRI MRA without contrast, stroke protocol, would best assess for acute ischemic change
[2025-05-01 10:34] LABS: Basophils % (Auto) 0 % (0-2.5); Eosinophils # (Auto) 0.3 Thou/mm3 (0.0-0.5); Eosinophils % (Auto) 4 % (0-10); Hematocrit 31.6 % (36.0-46.0); Hemoglobin 10.2 g/dL (12.0-16.0); Immature Granulocytes % (Auto) 0 % (0-0); Immature Granulocytes Auto 0.03 Thou/mm3 (0.00-0.00); Lymphocytes # (Auto) 1.3 Thou/mm3 (1.0-4.8); Lymphocytes % (Auto) 18 % (10-50); Mean Corpuscular HGB Conc 32.3 g/dl (31.0-37.0); Mean Corpuscular Volume 96 fL (80-100); Monocytes # (Auto) 0.5 Thou/mm3 (0.0-0.8); Monocytes % (Auto) 7 % (0-12); Neutrophils # (Auto) 5.2 Thou/mm3 (1.8-7.7); Neutrophils % (Auto) 70 % (37-80); Nucleated Red Blood Cell % 0 /100 WBC (0); Platelet Count 201 Thou/mm3 (140-440); RDW Standard Deviation 55.1 fL (36.4-46.3); Red Blood Count 3.29 Miln/mm3 (4.00-5.20); White Blood Count 7.4 Thou/mm3 (3.6-11.0)
[2025-05-01 10:54] LABS: B-Type Natriuretic Peptide > 3280 pg/mL (0-100)
[2025-05-01 10:55] LABS: Alanine Aminotransferase 12 U/L (10-49); Albumin, Serum 3.7 gm/dL (3.4-4.8); Albumin/Globulin Ratio 1.4 (1.2-2.2); Alcohol, Blood Medical < 3.0 mg/dL (0-10.0); Alkaline Phosphatase 129 U/L (46-116); Anion Gap 7 (7-16); Aspartate Amino Transferase 16 U/L (0-34); BUN/Creatinine Ratio 6 Ratio (12-20); Bilirubin,Total 0.4 mg/dL (0.3-1.2); Blood Urea Nitrogen 11 mg/dL (9-23); Calcium 8.5 mg/dL (8.3-10.6); Calcium (Corrected) 8.7 mg/dL (8.5-10.1); Carbon Dioxide 28.8 mMol/L (20.0-31.0); Chloride 99 mMol/L (98-107); Creatinine (Component) 1.7 mg/dL (0.6-1.3); Globulin 2.7 gm/dL (2.3-3.5); Glucose 223 mg/dL (74-106); Magnesium 1.7 mg/dL (1.6-2.6); Osmolality,Calculated 276 (275-295); Potassium 4.1 mMol/L (3.4-5.1); Sodium 135 mMol/L (136-145); Total Protein 6.4 gm/dL (5.7-8.2); Troponin I 0.021 ng/mL (0.0-0.045); eGFR 32 See Note
--- NOTE | 2025-05-01 11:03 | EDNOTE_ITS ---
ED Weakness RME/HPI General Chief complaint: General Adult/Misc Complain Stated complaint: UNABLE TO SPEAK SINCE YESTERDAY Time Seen by Provider: 05/01/25 10:14 Arrival date/time: 05/01/25 09:57 Limitations: language barrier (decreased speech and slower speech) RME / HPI RME / HPI Narrative: DR. MCCRAY MAIN ED EVALUATION: 69 year old female presents to the Emergency Department with complaints right- sided weakness, decreased speech, slow speech Patient woke up yesterday with these symptoms, unsure why patient did not come earlier. states her speech is decreased and slow which is very abnormal for her. However, patient had normal gait at home and here. 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 Dialysis port catheter in place. Social Hx: No tobacco, alcohol, or substance use. Related Data Home Medications ?Medication ?Instructions ?Recorded ?Confirmed atorvastatin 40 mg tablet 40 mg PO QDAY 06/19/2402/20 levothyroxine 50 mcg capsule 50 mcg PO QDAY 06/19/24 0 02/21/25 calcitriol 0.25 mcg capsule 0.25 mcg PO MWF 02/21/25 0 02/21/25 calcium acetate 667 mg tablet 667 mg PO BID 02/21/25 0 02/21/25 ferrous sulfate 325 mg (65 mg 325 mg PO DAILY 02/21/25 02/21/25 iron) tablet sevelamer carbonate 800 mg tablet 800 mg PO .with meal s 02/21/25 02/21/25 sodium bicarbonate 650 mg tablet 650 mg PO BID 5 02/21/25 Previous Rx's ?Medication ?Instructions ?Recorded blood sugar diagnostic (Accu-Chek #100 ea 04/18/24 Guide test strips) lancets-blood glucose test #1 ea 04/18/24 strips-pen needles with gauze kit pantoprazole 40 mg tablet,delayed 40 mg PO QDAY #30 ta bs 04/18/24 release pen needle, diabetic 29 gauge x #100 ea 04/18/2411/09 (BD Ultra-Fine Original Pen Needle) carvedilol 6.25 mg tablet 6.25 mg PO BID CHF #60 tabs 06/19/24 sitagliptin phosphate 25 mg tablet 25 mg PO QDAY #30 t abs 02/28/25 (Januvia) ondansetron 4 mg disintegrating 4 mg PO Q8H #10 tabs 0 03/19/25 tablet Allergies Allergy/AdvReac Type Severity Reaction Status Date / Time quetiapine (From Seroquel) AdvReac Severe hypothermia Verified 05/01/25 10:03 Review of Systems Review of Systems Systems Reviewed: All systems reviewed, normal except as documented Past Medical History Past Medical History CARDIAC: Positive Cardiac Disorders, Hypercholesterolemia, Congestive Heart Failure and Hypertension RESPIRATORY: Negative Chronic Obstructive Pulmonary Disease (COPD) or Asthma GASTROINTESTINAL: Positive Cirrhosis and Gastrointestinal Bleed GENITOURINARY: Positive Renal Disease ENDOCRINE: Positive Endocrine Disorders, Diabetes Mellitus Type 2 and Hypothyroidism; Negative Diabetes Mellitus Type 1 HEMATOLOGIC: Positive Anemia; Negative Sickle Cell Disease Social History SMOKING STATUS: Never smoker SUBSTANCE USE: does not use ALCOHOL: Never ED Exam General Limitations: Present language barrier (decreased speech and slower speech) General appearance: Present alert, in no apparent distress and other (Follows commands; has poor eye contact, mild right facial droop) Head Head exam: Present atraumatic, normocephalic and normal inspection Eye Eye exam: Present normal appearance, PERRL and EOMI ENT ENT exam: Present normal exam, normal oropharynx and mucous membranes moist Neck Neck exam: Present normal inspection, full ROM and trachea midline Chest Chest inspection: Present symmetric chest wall rise and other (Dialysis port catheter in place.) Respiratory Respiratory exam: Present normal lung sounds bilaterally Cardiovascular Cardiovascular exam: Present regular rate, normal rhythm and normal heart sounds Abdominal Exam Abdominal exam: Present soft and normal bowel sounds Extremities Exam Extremities exam: Present normal inspection and full ROM Back Exam Back exam: Present normal inspection and full ROM Neurological Exam Neurological exam: Present alert, normal gait (good balance as well when closing her eyes) and other (Follows commands; mild right facial droop; right upper extremity weakness; speech is decreased and slow) Expanded Neurological Exam Patient oriented to: Present person, place and time Cerebellar function: Normal: finger to nose Cerebellar function: Present normal gait Motor strength - LUE: 5/5 Motor strength - RUE: 4/5 Motor strength - LLE: 5/5 Motor strength - RLE: 5/5 Psychiatric Psychiatric exam: Present normal affect and normal mood Skin Skin exam: Present warm, dry, intact and normal color Course Quality Measures none Orders Category Date Time Status Bedside Blood Glucose NOW Care 05/01/25 10:14 Active COVID-19 Screening Questionnaire NOW Care 05/01/25 13:[address] Screening NOW Care 05/01/25 10:22 Active Waste Machine Tender NOW Care 05/01/25 10:14 Active Continuous Pulse Oximetry NOW Care 05/01/25 10:14 Completed Decision to Admit X1 Care 05/01/25 13:21 Active EKG (ED ONLY) *Do not use* NOW Care 05/01/25 10:14 Completed In and Out Catheter NEEDED Care 05/01/25 10:14 Active Insert IV NOW Care 05/01/25 10:14 Active NIH Stroke Scale now Care 05/01/25 10:14 Active NPO NOW Care 05/01/25 10:14 Active Neuro Check Q1H Care 05/01/25 10:14 Active Nurse Swallow Screen x1 Care 05/01/25 10:14 Active Consult to Neurology / Tele-Neurology Routine Cons 05/01/25 10:14 Active Consult to Neurology / Tele-Neurology Stat Cons 05/01/25 13:[address] angio carotid w head w Stat Exams 05/01/25 10:[address] head/brain wo con Stat Exams 05/01/25 10:16 Completed EKG (ED Only) Stat Exams 05/01/25 10:14 Draft Alcohol, Blood Medical Stat Lab 05/01/25 10:20 Completed B-Type Natriuretic Peptide Stat Lab 05/01/25 10:20 Completed CBC Stat Lab 05/01/25 10:20 Completed Comprehensive Metabolic Panel Stat Lab 05/01/25 10:20 Completed Drug Screen,Urine Stat Lab 05/01/25 10:14 Ordered Magnesium Stat Lab 05/01/25 10:20 Completed Partial Thromboplastin Time Stat Lab 05/01/25 10:20 Completed Prothrombin Time with INR Stat Lab 05/01/25 10:20 Completed Troponin I Stat Lab 05/01/25 10:20 Completed Urinalysis Stat Lab 05/01/25 10:14 Ordered Urine Culture Stat Lab 05/01/25 10:14 Ordered Aspirin Med 05/01/25 11:44 Discontinued 325 mg PO X1 ONE Ondansetron Inj [Zofran Inj] Med 05/01/25 10:14 Active 4 mg IVP Q4HR PRN Sodium Chloride 0.9% 1000 ml [Ns] 1,000 ml Med 05/01/25 10:15 Active IV Q10H Vital Signs Vital signs: Vital Signs Temperature 98.0 F 05/01/25 10:08 Pulse Rate 62 05/01/25 10:08 Respiratory Rate 17 05/01/25 10:08 Blood Pressure 141/57 H 05/01/25 10:08 Pulse Oximetry (%) 99 05/01/25 10:08 Oxygen Delivery Method Room Air 05/01/25 10:08 Weakness MDM Narrative MDM Narrative:: Patricia Gibson am scribing for and in the presence of Dr. Mccray. 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 Dialysis port catheter in place. Social Hx: No tobacco, alcohol, or substance use. How is presenting disease/condition affected by chronic disease/condition?: exacerbated by Evaluation data The following diagnostics were reviewed and interpreted by me:: lab results, radiology exam(s) and EKG tracing(s) Lab and/or radiology exams considered but not ordered:: none Interpretation Summary: EKG: Dated 05/01/2025 at 1026 hours. Interpreted by me: sinus rhythm, rate 65, no acute changes, TX interval 166 ms, QRS duration 83 ms, QT/QTc 484/506, P-R-T axis 63, 18, 55 Procedure(s): CT head/brain wo con Accession Number(s): [id number] cc: Naseem Mccray MD; Leon Ro MD; NO PRIMARY/FAMILY,PHYSICIAN~ Examination: CT brain head without contrast. 2-D sagittal coronal reconstructions Date and time of exam: May 01, 2025 1038 hours Comparison April 24, 2024 INDICATIONS: Altered mental status onset slurred speech today CTDI: vol (mGy):46.6 DLP: (mGycm):940 Technique: Multiple CT axial sections of the brain have been obtained, 5 mm slice thickness. Contrast has not been administered. 2-D sagittal, coronal reconstructions have been obtained Low dose protocols were performed. One or more of the following dose reduction techniques were used; automated exposure control, adjustment of the mA and/or KV according to patient size, use of iterative reconstruction technique. Findings: No significant ventricular enlargement. Intra-axial or extra-axial hemorrhage density is not seen. No mass effect or midline shift Basal cisterns are not remarkable. Fourth ventricle is midline. Cranial vault intact. Impression: Negative for acute hemorrhage, mass effect or midline shift As clinically warranted, brain MRI follow-up would best assess for acute ischemic change Dictated By: Leon Ro MD Procedure(s): CT angio carotid w head w Accession Number(s): [id number] cc: Naseem Mccray MD; Leon Ro MD; NO PRIMARY/FAMILY,PHYSICIAN~ Examination: CTA carotids with intravenous contrast CTA brain, head with intravenous contrast. 2-D sagittal, coronal reconstructions. 3-D reconstructions. Exam date and time: May 01, 2025 1206 hours INDICATIONS: Onset altered mental status slurred speech right-sided body weakness today CTDI: vol (mGy) 11.1 DLP: (mGycm) 114 Technique: Multiple CTA axial brain, head carotid images post intravenous contrast injection 75 cc, [id number]. 2-D sagittal, coronal reconstructions. 3-D reconstructions, 3-D post processing including vascular maximum intensity projection images. Low dose protocols were performed. One or more of the following dose reduction techniques were used; automated exposure control, adjustment of the mA and/or KV according to patient size, use of iterative reconstruction technique. Findings: Right apical scarring No significant common carotid carotid bifurcation or internal carotid artery stenoses Codominant vertebral arteries with no critical stenoses Bilateral pleural effusions No cerebral large vessel arterial occlusions or thrombus IMPRESSION: No significant neck arterial stenoses No cerebral large vessel arterial occlusions or thrombus Brain MRI MRA without contrast, stroke protocol, would best assess for acute ischemic change Dictated By: Leon Ro MD Medications / Prescriptions Medications or Prescriptions considered but not ordered:: none Medication administrations:: Medication Administration History Sodium Chloride (Ns) 1,000 mls @ 100 mls/hr IV Q10H ANDRES Stop: 05/31/25 10:14 Last Admin: 05/01/25 11:05 Dose: 100 mls/hr Documented By: INDRA Ondansetron HCl (Ondansetron Inj 2 Mg/Ml Inj 2 Ml) 4 mg IVP Q4HR PRN PRN Reason: NAUSEA OR VOMITING Stop: 05/31/25 10:13 Discontinued Medications Aspirin (Aspirin 325 Mg Tablet) 325 mg PO X1 ONE Stop: 05/01/25 11:45 Last Admin: 05/01/25 11:48 Dose: 325 mg Documented By: INDRA see above Consultations Consultation(s) initiated? (list below): Yes Consultation #1 (Physician, Specialty, Details): Discussed test HPI, PMHx, lab, radiology results and/or management with resident working with the hospitalist. Will admit for further evaluation and management. Accepts patient for admission. Time: 13:25 Diagnosis Weakness Differential Diagnosis: dehydration and other (TIA, CVA) Most likely diagnosis given after review of the tests above:: CVA Hypertension Admission Indicated Admission indicated?: indicated Admission Request Was there a request for admission?: Yes Admission Attestation Admission request attestation: Discussed case with [] from Hospitalist service regarding admission. Discussed patients ED course, exam findings, labs, and radiology results. The Hospitalist [agrees,declines] to accept the patient for admission. Disposition Plan Disposition Plan: Admit Discharge Plan Plan Patient Disposition: Admit Acute Care w/in Hospital Prescriptions/Referrals Prescriptions/Med Rec: No Action levothyroxine 50 mcg capsule 50 mcg PO QDAY atorvastatin 40 mg tablet 40 mg PO QDAY carvedilol 6.25 mg tablet 6.25 mg PO BID MDD 12.5 mg Qty: 60 2RF Rx Instructions: must administer with a meal/food (DME) lancet-gluc [id number] Kit See Rx Instructions .Route Qty: 1 0RF Rx Instructions: As directed (DME) pen needle, diabetic [BD Ultra-Fine Orig Pen Needle] 29 gauge x 1/2 needle See Rx Instructions .Route Qty: 100 0RF Rx Instructions: As directed (DME) Accu-Chek Guide test strips Strip See Rx Instructions .Route Qty: 100 0RF Rx Instructions: As directed pantoprazole 40 mg tablet,delayed release (DR/EC) 40 mg PO QDAY Qty: 30 0RF ferrous sulfate 325 mg (65 mg iron) tablet 325 mg PO DAILY sevelamer carbonate 800 mg tablet 800 mg PO .with meals calcium acetate 667 mg tablet 667 mg PO BID Patient Comments: TAKE 1 TABLET BY MOUTH TWICE A DAY WITH MEALS FOR 60 DAYS calcitriol 0.25 mcg capsule 0.25 mcg PO MWF Patient Comments: TAKE 1 TABLET BY MOUTH WEDNESDAY , WEDNESDAY , WEDNESDAY sodium bicarbonate 650 mg tablet 650 mg PO BID Patient Comments: TAKE 1 TABLET BY MOUTH TWICE A DAY DIRECTED Januvia 25 mg tablet 25 mg PO QDAY Qty: 30 0RF ondansetron 4 mg tablet,disintegrating 4 mg PO Q8H Qty: 10 0RF Referrals: No Primary/Family,Physician [Primary Care Provider] - In 1 week Problem List Clinical Impression: CVA (cerebral vascular accident), Hypertension Patient/Caregiver Discharge Instructions Print Language: Belarusian Stand Alone Forms: [employer] Award Info., Patient Portal Info Letter
[2025-05-01 11:04] LABS: INR 1.2 (0.9-1.3); Partial Thromboplastin Time 75.6 Seconds (22.0-36.0); Prothrombin Time 12.7 Seconds (9.0-12.2)
[2025-05-01] MEDS: SODIUM CHLORIDE 0.9% 1000 ML 1,000 ML 100 ML IV (11:05)
[2025-05-01] MEDS: Aspirin 325 MG TABLET PO (11:48)
--- NOTE | 2025-05-01 13:51 | ECHO_ITS ---
Transthoracic Echo Report Ht (in): 60 Wt (lb): 137 Exam Location: Echo Lab Status: Emergency Manager Traffic: Megan Ernandez Indications: Procedure Performed: BP: 199 / 84 HR: 66 Technical Quality: Adequate MEASUREMENTS (Male / Female) Normal Values 2D ECHO LV Diastolic Diameter PLAX 5.2 cm 4.2 - 5.9 / 3.9 - 5.3 cm LV Systolic Diameter PLAX 4.4 cm IVS Diastolic Thickness 0.6 cm 0.6 - 1.0 / 0.6 - 0.9 cm LVPW Diastolic Thickness 0.7 cm 0.6 - 1.0 / 0.6 - 0.9 cm LV Relative Wall Thickness 0.3 LVOT Diameter 2.1 cm LA Volume Index 54.3 cm?/m? 16 - 28 cm?/m? Ascending Aorta Diameter 2.9 cm DOPPLER AV Peak Velocity 102.0 cm/s AV Peak Gradient 4.2 mmHg LVOT Peak Velocity 86.8 cm/s LVOT Peak Gradient 3.0 mmHg AV Area Cont Eq pk 2.9 cm? MV Area PHT 3.9 cm? MR Peak Velocity 597.0 cm/s MR Peak Gradient 142.6 mmHg Mitral E Point Velocity 94.1 cm/s Mitral A Point Velocity 75.7 cm/s Mitral E to A Ratio 1.2 LV E' Lateral Velocity 5.4 cm/s Mitral E to LV E' Lateral Ratio 17.3 LV E' Septal Velocity 3.0 cm/s Mitral E to LV E' Septal Ratio 30.9 TR Peak Velocity 333.5 cm/s TR Peak Gradient 44.5 mmHg PV Peak Velocity 59.1 cm/s PV Peak Gradient 1.4 mmHg FINDINGS Left Ventricle Normal left ventricular size and wall thickness. The left ventricular ejection fraction is mildly decreased, estimated at 40-45%. There is grade II diastolic dysfunction of the left ventricle (pseudonormal filling pattern). Right Ventricle The right ventricle is moderately dilated. RVSP 44mmHg. RAP 10mmHg. Left Atrium The left atrium is severely enlarged. Right Atrium The right atrium is severely enlarged. Atrial Septum The interatrial septum appears normal with no evidence of a shunt. Agitated saline bubble study negative for PFO/ASD. Aorta The aorta is normal by two-dimensional, color flow and Doppler interrogation. Mitral Valve The mitral valve annulus is mildly calcified. There is moderate mitral regurgitation. Aortic Valve The aortic valve is trileaflet and mildly calcified. There is no significant aortic valve regurgitation. Tricuspid Valve The tricuspid valve is normal by two-dimensional, color flow and Doppler interrogation. There is mild to moderate tricuspid regurgitation. Pulmonic Valve The pulmonic valve is not well visualized. There is trace pulmonic regurgitation. Vessels The pulmonary artery appears normal. The inferior vena cava pulmonary and hepatic veins appear normal. Pericardium The pericardium is normal by two-dimensional imaging. There is no significant pericardial effusion. Left pleural effusion noted. CONCLUSIONS Indication: Stroke Bubble study negative for any PFO or ASD. Consider MADIE if high index of clinical suspicion. Normal LV size and function. Estimated EF of 55 to 60%. Diastolic dysfunction present but could not be measured due to EA fusion. Normal RV size and function. RVSP moderately elevated at 50 mmHg. Mild to moderate TR and MR, mild MAC. Mild aortic valve sclerosis without stenosis. Trace pericardial effusion without any evidence of tamponade. Left pleural effusion noted. Romain Jones (Electronically Signed) Final Date: 02 May 2025 19:46
[2025-05-01 14:20] LABS: Cholesterol 100 mg/dL (132-200); HDL Cholesterol 49 mg/dL (40-60); LDL Cholesterol,Calculated 33 mg/dL (0-130); Triglycerides 90 mg/dL (30-150)
--- NOTE | 2025-05-01 14:23 | PD.RESHP ---
Documentation for date of: 05/01/25 HPI History of Present Illness History of present illness: Michelle Rodrigues is a 69-year-old female with a past medical history of HFpEF (EF 50 to 55%, 02/2025), recent ESRD on HD M/W/F (follows Dr. Jean), end-stage liver disease with history of esophageal varices status post band ligation, type 2 diabetes mellitus, hypertension, hyperlipidemia, and hypothyroidism who presents on 05/01 for slurred speech, slow speech, and right upper extremity numbness. is present at bedside and helps provide additional history. After dialysis session yesterday at around 8 AM, patient started to feel right upper extremity paresthesia with associated slurred and slowed speech. Patient states that paresthesia resolved after approximately 30 minutes but slurred and slowed speech continue persist even during evaluation. She denies any other symptoms and has been did not notice any other abnormalities, including weakness, difficulty walking, nausea, vomiting, headaches, blurry vision. Given that symptoms has started over 24 hours ago, stroke alert was not called upon arrival to ED. In ED, vital signs showed BP 199/84 but otherwise saturating well on room air. CBC showed normocytic anemia, chem panel showed creatinine 1.7, GFR 32, glucose 223, BNP greater than 3000, troponin negative. CT head negative, CTA head/neck negative, EKG showed NSR with heart rate 65 bpm but QTc 506. 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 Jean and test specialist, Dr. Hess. PMHx: HFpEF (EF 50 to 55%, 02/2025), recent ESRD on HD M/W/ (follows Dr. Jean), end-stage liver disease with history of esophageal varices status post band ligation, type 2 diabetes mellitus, hypertension, hyperlipidemia, and hypothyroidism Medications: Hydralazine, losartan, atorvastatin, levothyroxine, isosorbide mononitrate, Lasix, Reav-Adriel, carvedilol, pantoprazole, Januvia SHx: Denies cigarettes, alcohol consumption, illicit drug use PSHx: s/p 2nd toe amputation Review of Systems Review of Systems Systems Reviewed: All systems reviewed, normal except as documented Exam Vital Signs Temp Pulse Resp BP Pulse Ox O2 Del Method 98.1 F 62 15 182/76 H 98 Room Air 05/01/25 14:00 05/01/25 14:00 05/01/25 14:00 05/01/25 14:00 05/01/25 14:00 05/01/25 14:00 Narrative Exam General: alert, answering questions appropriately, no acute distress HEENT: NC/AT, mucous membranes moist, bilateral sclera anicteric Cardiovascular: regular rate and rhythm, S1/S2 present, no murmurs appreciated Pulmonary: clear to auscultation bilaterally, no rales/rhonchi/wheezes Abdominal: soft, non-tender, non-distended, no rebound/guarding, normal bowel sounds present Musculoskeletal: normal ROM, no peripheral edema Skin: warm and dry, intact, no rashes Neuro: - Alert, answering questions appropriately but slurred and speaks slowly - Strength 5/5 in upper and lower extremities bilaterally - Sensation intact in upper and lower extremities bilaterally - CN II-XII grossly other than possible facial asymmetry Results: Labs 05/02/25 04:38 05/02/25 04:38 Labs: Short CBC 05/01/25 Range/Units 10:20 WBC 7.4 (3.6-11.0) Thou/mm3 Hgb 10.2 L (12.0-16.0) g/dL Hct 31.6 L (36.0-46.0) % Plt Count 201 (140-440) Thou/mm3 BMP 05/01/25 10:20 Sodium 135 L Potassium 4.1 Chloride 99 Carbon Dioxide 28.8 BUN 11 Creatinine 1.7 H Glucose 223 H Calcium 8.5 Cardiac Enzymes 05/01/25 Range/Units 10:20 Troponin I 0.021 (0.0-0.045) ng/mL Liver Function 05/01/25 Range/Units 10:20 Total Bilirubin 0.4 (0.3-1.2) mg/dL AST 16 (0-34) U/L ALT 12 (10-49) U/L Alkaline Phosphatase 129 H (46-116) U/L Albumin 3.7 (3.4-4.8) gm/dL Quality Measures Quality Measures none Advance care planning discussed with:: patient and spouse Medications Home Medications and Allergies Home Medications ?Medication ?Instructions ?Recorded ?Confirmed ?Type atorvastatin 40 mg tablet 40 mg PO QDAY 06/19/24 05/01/25 History levothyroxine 50 mcg capsule 50 mcg PO QDAY 06/19/24 05/01/25 History calcitriol 0.25 mcg capsule 0.25 mcg PO MWF 02/21/25 05/01/25 History calcium acetate 667 mg tablet 667 mg PO BID 02/21/25 05/01/25 History ferrous sulfate 325 mg (65 mg 325 mg PO DAILY 02/21/25 05/01/25 History iron) tablet sevelamer carbonate 800 mg tablet 800 mg PO .with meals 02/21/25 05/01/25 History sodium bicarbonate 650 mg tablet 650 mg PO BID 02/21/25 05/01/25 History furosemide 40 mg tablet 40 mg PO QDAY 05/01/25 05/01/25 History hydralazine 50 mg tablet 50 mg PO BID 05/01/25 05/01/25 History isosorbide mononitrate 30 mg 30 mg PO QDAY 05/01/25 05/01/25 History tablet,extended release 24 hr losartan 25 mg tablet 25 mg PO QDAY 05/01/25 05/01/25 History vitamin B complex-vitamin C-folic 1 tab PO QDAY 05/01/25 05/01/25 History acid 0.8 mg tablet Allergies Allergy/AdvReac Type Severity Reaction Status Date / Time quetiapine (From Dials) AdvReac Severe hypothermia Verified 05/01/25 10:03 Visit Medications Acetaminophen (Acetaminophen 325 Mg Tablet) 650 mg PO Q6H PRN PRN Reason: PAIN OR FEVER > 101 Stop: 05/31/25 13:50 Aspirin (Aspirin Ec 81 Mg Tabec) 81 mg PO QDAY ANDRES Stop: 06/01/25 08:59 Atorvastatin Calcium (Atorvastatin Calcium 20 Mg Tablet) 80 mg PO HS ANDRES Stop: 05/31/25 20:59 Carvedilol (Carvedilol 3.125 Mg Tablet) 6.25 mg PO BIDWM ANDRES Stop: 05/31/25 20:59 Dextrose (Dextrose 50%-Water Inj 50 Ml Syringe) 25 ml IV Q15MIN PRN PRN Reason: BG 50-70 responsive npo pt Stop: 05/31/25 13:58 Dextrose (Dextrose 50%-Water Inj 50 Ml Syringe) 50 ml IV Q15MIN PRN PRN Reason: BG <50 OR BG <70 & pt unresponsive Stop: 05/31/25 13:58 Glucagon (Glucagon Inj 1 Mg Vial) 1 mg IM Q15MIN PRN PRN Reason: BG <70, and no IV access Sodium Chloride (Ns) 1,000 mls @ 100 mls/hr IV Q10H ANDRES Stop: 05/31/25 10:14 Last Admin: 05/01/25 11:05 Dose: 100 mls/hr Insulin Human Lispro (Insulin Lispro (Admelog) 1 Unit/0.01 Ml Unit) 0 unit SC AC ANDRES; Protocol Stop: 05/31/25 16:59 Labetalol HCl (Labetalol Inj 5 Mg/Ml Vial 20 Ml) 10 mg IVP Q6H PRN PRN Reason: SBP>170, DBP>110, hold if HR< Stop: 05/31/25 13:59 Ondansetron HCl (Ondansetron Inj 2 Mg/Ml Inj 2 Ml) 4 mg IVP Q4HR PRN PRN Reason: NAUSEA OR VOMITING Stop: 05/31/25 10:13 Pantoprazole Sodium (Pantoprazole 40 Mg Tablet) 40 mg PO QDAY ANDRES Stop: 06/01/25 08:59 Sennosides (Senna Tablet) 1 tab PO QDAY ANDRES; Protocol Stop: 06/01/25 08:59 Discontinued Medications Aspirin (Aspirin 325 Mg Tablet) 325 mg PO X1 ONE Stop: 05/01/25 11:45 Last Admin: 05/01/25 11:48 Dose: 325 mg Assessment & Plan Plan Michelle Rodrigues is a 69-year-old female with a past medical history of HFpEF (EF 50 to 55%, 02/2025), recent ESRD on HD M// (follows Dr. Jean), end-stage liver disease with history of esophageal varices status post band ligation, type 2 diabetes mellitus, hypertension, hyperlipidemia, and hypothyroidism who is admitted for further work-up for CVA. #? CVA #Slurred speech, slow speech #Right upper extremity paresthesia, resolved Presents more than 24 hours after symptom onset that includes right upper extremity paresthesia that is now resolved but persistent slurred and slow speech. CT head and CTA head/neck negative for any acute abnormalities. EKG showed NSR with heart rate in 60s but QTc 506. No history of strokes in the past but does have risk factors. ? In-house neurology consulted, appreciate recommendations ? Follow-up MRI and echo ? Aspirin 81 mg daily, atorvastatin 80 mg daily ? Given presentation >24 hours after symptom onset, no longer allowing permissive hypertension ? Labetalol 10 mg IV as needed for SBP >170 or DBP >110 ? Follow-up A1c, TSH ? Neurocheck every 4 hour, HOB elevated ? Nurse swallow screen, speech evaluation, physical therapy #HFpEF (EF 50 to 55%, 02/2025) Although BNP elevated, patient has ESRD and does not appear in acute exacerbation that she is on room air and does not have lower extremity edema. ? Carvedilol 6.25 mg p.o. twice daily with meals ? Pending med rec #ESRD on HD M/W/ ? Follows Dr. Jean outpatient and consulted for hemodialysis #Type 2 diabetes mellitus A1c 03/2024 7.2% ? SSI ? Follow-up A1c ? Hypoglycemic protocol in place #Hypertension ? Labetalol 10 mg IV as needed ? Pending med rec #Hyperlipidemia ? Atorvastatin 80 mg daily #Hypothyroidism ? Levothyroxine 50 mcg Hospital management: Disposition: CVA work-up, pending echo and MRI Diet: dysphagia 3 Lines: PIV DVT prophylaxis: SCDs GI prophylaxis: pantoprazole 40 mg po daily CODE STATUS: full code ----- Plan discussed with attending physician Dr. Amber Evangelista MD PGY-1 Internal Medicine Attending Provider Attestation/Addendum I have examined the patient, reviewed labs and imaging findings, discussed the case with the resident(s), and reviewed entered orders. I agree with the plan of care as outlined in this note, with these additional summaries/recommendations: After examination of the patient and review of the clinical data, I feel that this patient needs admission to the hospital for further treatment and evaluation. Patient is a 69-year-old female with medical history of hyperlipidemia, vitamin D deficiency, ESRD, primary hypertension, ARIEL, hypothyroidism, GERD, HFpEF, and diabetes mellitus type 2 presents to [facility] emergency department on 05/01/2025 with chief complaints of right-sided weakness and decreased speech. Patient seen at bedside. She endorses right-sided weakness and difficulty speaking. She reports symptoms started over 24 hours ago and thus stroke alert was not called in the emergency department. In-house neurology was consulted and recommends admission for CVA workup. Patient will be admitted to telemetry. CT head was negative for acute hemorrhage, mass effect or midline shift. CTA head and neck showed no LVO or thrombus. Order MRI brain, echocardiogram with bubble study, physical therapy, and speech therapy. Order vascular risk factor screening with TSH, A1c, and lipid panel. Status post loading dose of aspirin. Start aspirin 81 mg p.o. daily and atorvastatin 80 mg p.o. at bedtime. Since symptoms are present for more than 24 hours we can resume home antihypertensives. Start insulin sliding scale with Accu-Cheks. Order A1c. Target blood sugar of 140-180 while hospitalized. Patient has history of end-stage renal disease and we will consult nephrology to resume hemodialysis while inpatient. Continue home phosphate binders. Patient updated on the plan and in agreement. All questions answered satisfaction. Please see residents note for additional details and management. Dr. Amber MD
--- NOTE | 2025-05-01 14:59 | PC.NURSE ---
report given to charlie alexander on tele floor. nurse will resume care for pt. pt will go to mri before going to floor.
[2025-05-01] MEDS: LABETALOL INJ 5 MG/ML VIAL 20 ML 10 MG IVP (17:57)
--- NOTE | 2025-05-01 18:22 | PC.NURSE ---
[facility] #[id number] used to communicate with patient and family on admission.
[2025-05-01] MEDS: carVEDILOL 3.125 MG TABLET 6.25 MG PO (20:07)
[2025-05-01] MEDS: ATORVASTATIN CALCIUM 20 MG TABLET 80 MG PO (20:07)
--- NOTE | 2025-05-01 22:50 | PD.VCONSULT1 ---
Telemedicine visit statement This visit was conducted with the use of interactive audio and video telecommunications system that permits real time communication between the patient and the provider. Patient's verbal consent for virtual visit was obtained on 05/01/25 at 2250. History of Present Illness History of Present Illness History of present illness: Ms. Rodrigues is a 69-year-old female with CHF, ESRD on HD 3 days a week followed by Dr. Jean, end-stage liver disease with history of esophageal varices status post band ligation, type 2 diabetes mellitus, hypertension, hyperlipidemia, and hypothyroidism presented today for slurred speech, slow speech, and right upper extremity numbness. stated that after dialysis session yesterday at around 8 AM, patient started to feel right upper extremity paresthesia with associated slurred and slowed speech. Patient states that paresthesia resolved after approximately 30 minutes but slurred and slowed speech continued to persist even during evaluation. She denies any weakness, difficulty walking, nausea, vomiting, headaches, blurry vision or diplopia. Because her symptoms has started over 24 hours ago, stroke alert was not called upon arrival to ER. Workup in the ER: vital signs showed BP 199/84 but otherwise saturating well on room air. Labs: CBC showed normocytic anemia, chem panel showed creatinine 1.7, GFR 32, glucose 223, BNP greater than 3000, troponin negative. Imaging: CT head negative, CTA head/neck negative, EKG showed NSR with heart rate 65 bpm but QTc 506. Medications: Hydralazine, losartan, atorvastatin, levothyroxine, isosorbide mononitrate, Lasix, Reva-Adriel, carvedilol, pantoprazole, Januvia Past Medical History Past Medical History CARDIAC: Positive Cardiac Disorders, Hypercholesterolemia, Congestive Heart Failure and Hypertension RESPIRATORY: Negative Chronic Obstructive Pulmonary Disease (COPD) or Asthma GASTROINTESTINAL: Positive Cirrhosis and Gastrointestinal Bleed GENITOURINARY: Positive Renal Disease ENDOCRINE: Positive Endocrine Disorders, Diabetes Mellitus Type 2 and Hypothyroidism; Negative Diabetes Mellitus Type 1 HEMATOLOGIC: Positive Anemia; Negative Sickle Cell Disease Social History SMOKING STATUS: Never smoker SUBSTANCE USE: does not use ALCOHOL: Never TeleMedicine ROS Pertinent Review of Systems Systems Reviewed: All systems reviewed, normal except as documented Meds Home Medications and Allergies Home Medications ?Medication ?Instructions ?Recorded ?Confirmed ?Type atorvastatin 40 mg tablet 40 mg PO QDAY 06/19/24 05/01/25 History levothyroxine 50 mcg capsule 50 mcg PO QDAY 06/19/24 05/01/25 History calcitriol 0.25 mcg capsule 0.25 mcg PO MWF 02/21/25 05/01/25 History calcium acetate 667 mg tablet 667 mg PO BID 02/21/25 05/01/25 History ferrous sulfate 325 mg (65 mg 325 mg PO DAILY 02/21/25 05/01/25 History iron) tablet sevelamer carbonate 800 mg tablet 800 mg PO .with meals 02/21/25 05/01/25 History sodium bicarbonate 650 mg tablet 650 mg PO BID 02/21/25 05/01/25 History furosemide 40 mg tablet 40 mg PO QDAY 05/01/25 05/01/25 History hydralazine 50 mg tablet 50 mg PO BID 05/01/25 05/01/25 History isosorbide mononitrate 30 mg 30 mg PO QDAY 05/01/25 05/01/25 History tablet,extended release 24 hr losartan 25 mg tablet 25 mg PO QDAY 05/01/25 05/01/25 History vitamin B complex-vitamin C-folic 1 tab PO QDAY 05/01/25 05/01/25 History acid 0.8 mg tablet Allergies Allergy/AdvReac Type Severity Reaction Status Date / Time quetiapine (From Seroquel) AdvReac Severe hypothermia Verified 05/01/25 10:03 Virtual exam Vital Signs Temp Pulse Resp BP Pulse Ox O2 Del Method 97.2 F 63 18 168/58 H 97 Room Air 05/01/25 19:52 05/01/25 20:07 05/01/25 19:52 05/01/25 20:07 05/01/25 19:52 05/01/25 19:52 Results Labs 05/01/25 10:20 05/01/25 10:20 Labs: Short CBC 05/01/25 Range/Units 10:20 WBC 7.4 (3.6-11.0) Thou/mm3 Hgb 10.2 L (12.0-16.0) g/dL Hct 31.6 L (36.0-46.0) % Plt Count 201 (140-440) Thou/mm3 BMP 05/01/25 10:20 Sodium 135 L Potassium 4.1 Chloride 99 Carbon Dioxide 28.8 BUN 11 Creatinine 1.7 H Glucose 223 H Calcium 8.5 Cardiac Enzymes 05/01/25 Range/Units 10:20 Troponin I 0.021 (0.0-0.045) ng/mL Liver Function 05/01/25 Range/Units 10:20 Total Bilirubin 0.4 (0.3-1.2) mg/dL AST 16 (0-34) U/L ALT 12 (10-49) U/L Alkaline Phosphatase 129 H (46-116) U/L Albumin 3.7 (3.4-4.8) gm/dL Assessment & Plan Problem List (1) CVA (cerebral vascular accident): Status: Acute Assessment and plan: Patient presented with right hemiparesis. MRI brain: Small acute infarcts in the left parietal lobe MRA carotid images no critical carotid stenoses. MRA brain images no large vessel occlusions. consider plavix 75 mg for better prophylaxis with close monitoring for any bleeding and statin (2) Hypertension: Status: Chronic Assessment and plan: consider aggressive BP control from am (3) CKD (chronic kidney disease): Status: Chronic Assessment and plan: continue to monitor closely, avoid nephrotoxic drugs (4) Hyperlipidemia: Status: Chronic Assessment and plan: on statin
[2025-05-02] VITALS (30 sets, daily range): BP systolic 150–198; BP diastolic 57–89; PULSE 62–73; RESP 16–21; TEMP 36.1–36.9; O2SAT 93–98; BMI 26.7
[2025-05-02] MEDS: LABETALOL INJ 5 MG/ML VIAL 20 ML 10 MG IVP (00:06)
[2025-05-02] MEDS: LEVOTHYROXINE SODIUM 25 MCG TABLET 50 MCG PO (05:17)
[2025-05-02 05:34] LABS: Basophils % (Auto) 1 % (0-2.5); Eosinophils # (Auto) 0.3 Thou/mm3 (0.0-0.5); Eosinophils % (Auto) 4 % (0-10); Hematocrit 28.2 % (36.0-46.0); Immature Granulocytes % (Auto) 1 % (0-0); Immature Granulocytes Auto 0.11 Thou/mm3 (0.00-0.00); Lymphocytes # (Auto) 1.3 Thou/mm3 (1.0-4.8); Lymphocytes % (Auto) 18 % (10-50); Mean Corpuscular HGB Conc 31.9 g/dl (31.0-37.0); Mean Corpuscular Hemoglobin 30.3 pg (25.0-35.0); Mean Corpuscular Volume 95 fL (80-100); Monocytes # (Auto) 0.5 Thou/mm3 (0.0-0.8); Monocytes % (Auto) 7 % (0-12); Neutrophils # (Auto) 5.3 Thou/mm3 (1.8-7.7); Neutrophils % (Auto) 70 % (37-80); Nucleated Red Blood Cell % 0 /100 WBC (0); Platelet Count 305 Thou/mm3 (140-440); RDW Standard Deviation 53.4 fL (36.4-46.3); Red Blood Count 2.97 Miln/mm3 (4.00-5.20); White Blood Count 7.7 Thou/mm3 (3.6-11.0)
[2025-05-02 05:41] LABS: Collection Type, Urine Catheter
[2025-05-02 05:47] LABS: Glucose Estimated Average 154 mg/dL (80-131)
[2025-05-02 05:52] LABS: Bacteria,Urine 3+; Bilirubin,Urine Negative (Negative); Blood,Urine 1+ (Negative); Clarity,Urine Turbid (Clear/Hazy); Color,Urine Yellow (Lt Yel-Yel); Glucose, Urine 2+ (Negative); Ketones,Urine Negative (Negative); Leukocyte Esterase,Urine Positive (Negative); Nitrite,Urine Negative (Negative); PH,Urine 7.5 (5.0-7.0); Protein,Urine 3+ (Neg - Trace); RBC,Urine 80 /hpf (0-3); Specific Gravity,Urine 1.023 (1.001-1.035); Squamous Epithelial Cell,Urine 1 /hpf (0-5); Urobilinogen,Urine Negative mg/dL (0.0-1.0); WBC,Urine 181 /hpf (0-5)
[2025-05-02 06:11] LABS: Amphetamine/Methamp Scrn,U Negative (Negative); Barbiturate Screen,Urine Negative (Negative); Benzodiazepines Screen,Urine Negative (Negative); Benzoylecgonine Screen, Ur Negative (Negative); Fentanyl Screen,Urine Negative (Negative); Opiate Screen,Urine Negative (Negative); THC Screen,Urine Negative (Negative)
[2025-05-02 06:20] LABS: Alanine Aminotransferase 11 U/L (10-49); Albumin, Serum 3.3 gm/dL (3.4-4.8); Albumin/Globulin Ratio 1.3 (1.2-2.2); Alkaline Phosphatase 115 U/L (46-116); Anion Gap 9 (7-16); Aspartate Amino Transferase 15 U/L (0-34); BUN/Creatinine Ratio 8 Ratio (12-20); Bilirubin,Total 0.3 mg/dL (0.3-1.2); Blood Urea Nitrogen 18 mg/dL (9-23); Calcium 8.2 mg/dL (8.3-10.6); Calcium (Corrected) 8.8 mg/dL (8.5-10.1); Carbon Dioxide 26.1 mMol/L (20.0-31.0); Chloride 99 mMol/L (98-107); Creatinine (Component) 2.4 mg/dL (0.6-1.3); Estimated Creatinine Clearance 17.7 mL/min (>60); Globulin 2.5 gm/dL (2.3-3.5); Glucose 124 mg/dL (74-106); Magnesium 1.7 mg/dL (1.6-2.6); Osmolality,Calculated 271 (275-295); Potassium 4.4 mMol/L (3.4-5.1); Sodium 134 mMol/L (136-145); Thyroid Stimulating Hormone 4.02 uIU/mL (0.55-4.78); Total Protein 5.8 gm/dL (5.7-8.2); eGFR 21 See Note
[2025-05-02] MEDS: PANTOPRAZOLE 40 MG TABLET PO (07:53)
[2025-05-02] MEDS: ASPIRIN EC 81 MG TABEC PO (07:53)
--- NOTE | 2025-05-02 09:43 | PC.SS ---
Patient is a 69 year old female. Patient resides at home with her daughter, Dominique Lebron who she reports is her surrogate decision maker [phone]. Patient Patient has a walker and cane at home. Patient is able to complete all ADL's independently. Patient's PCP is Mundo Allen. Patient gets Dialysis on Wed, Wed, Sat in [facility]. Pharmacy of choice [facility]. Patient also follows caser up. Patient to return home upon discharge. Patient's daughter to transport the patient home upon discharge. D/c plan: Home Next of kin: daughter, Dominique Lebron [phone] PCP: Mundo Allen
[2025-05-02] MEDS: EPOETIN ALFA-EPBX INJ 10,000 UNIT/ML VIAL (NON-ESRD) 10000 UNIT IV (10:00)
[2025-05-02] MEDS: CLOPIDOGREL BISULFATE 75 MG TABLET PO (10:00)
[2025-05-02] MEDS: hydrALAZINE HCL 25 MG TABLET 50 MG PO ×2 (10:05→20:02)
[2025-05-02] MEDS: SENNA TABLET 1 TAB PO (10:18)
[2025-05-02] MEDS: LOSARTAN POTASSIUM 25 MG TABLET PO (10:19)
--- NOTE | 2025-05-02 10:40 | PD.RESPRO ---
Documentation for date of: 05/02/25 Subjective Subjective Interval history: No acute overnight events. Seen and examined at bedside with family present and family states that patient is able to communicate more clearly but still from her baseline. No other focal neurological deficits noted. Underwent hemodialysis today and blood pressure noted to be elevated and restarted all home antihypertensives. MRI obtained and showed small acute infarcts in the left parietal lobe. TTE obtained and pending read. Will continue aspirin, Plavix, and atorvastatin and anticipate discharge within next 24 to 40 hours. Exam Vital Signs Temp Pulse Resp BP Pulse Ox O2 Del Method O2 Flow Rate 97.8 F 66 18 191/82 H 93 L Room Air 4 05/02/25 08:41 05/02/25 10:29 05/02/25 08:41 05/02/25 10:29 05/02/25 08:41 05/02/25 07:56 05/01/25 23:00 Narrative Exam General: alert, answering questions appropriately, no acute distress HEENT: NC/AT, mucous membranes moist, bilateral sclera anicteric Cardiovascular: regular rate and rhythm, S1/S2 present, no murmurs appreciated Pulmonary: clear to auscultation bilaterally, no rales/rhonchi/wheezes Abdominal: soft, non-tender, non-distended, no rebound/guarding, normal bowel sounds present Musculoskeletal: normal ROM, no peripheral edema Skin: warm and dry, intact, no rashes Neuro: - Alert, answering questions appropriately but slurred and speaks slowly - Strength 5/5 in upper and lower extremities bilaterally - Sensation intact in upper and lower extremities bilaterally - CN II-XII grossly intact Objective Labs 05/03/25 04:41 05/03/25 04:41 Labs: Laboratory Results - last 24 hr 05/01/25 05/02/25 05/02/25 10:20 03:12 04:38 WBC 7.4 7.7 RBC 3.29 L 2.97 L Hgb 10.2 L 9.0 L Hct 31.6 L 28.2 L MCV 96 95 MCH 31.0 30.3 MCHC 32.3 31.9 RDW Std Deviation 55.1 H 53.4 H Plt Count 201 305 D Neut % (Auto) 70 70 Lymph % (Auto) 18 18 [place] % (Auto) 7 7 Eos % (Auto) 4 4 Baso % (Auto) 0 1 Neut # (Auto) 5.2 5.3 Lymph # (Auto) 1.3 1.3 [place] # (Auto) 0.5 0.5 Eos # (Auto) 0.3 0.3 Baso # (Auto) 0.0 0.0 Immature Gran # (Auto) 0.03 H 0.11 H Absolute Nucleated RBC 0.00 0.00 Immature Gran % 0 1 H Nucleated RBC % 0 0 PT 12.7 H INR 1.2 APTT 75.6 H Sodium 135 L 134 L Potassium 4.1 4.4 Chloride 99 99 Carbon Dioxide 28.8 26.1 Anion Gap 7 9 BUN 11 18 Creatinine 1.7 H 2.4 H D Estim Creat Clear Calc Not Performed. 17.7 L eGFR 32 L 21 L BUN/Creatinine Ratio 6 L 8 L Glucose [address] Glu mg/dL 154 H Hemoglobin A1c 7.0 H Calculated Osmolality 276 271 L Calcium 8.5 8.2 L Corrected Calcium 8.7 8.8 Phosphorus 4.0 Magnesium 1.7 1.7 Total Bilirubin 0.4 0.3 AST 16 15 ALT 12 11 Alkaline Phosphatase 129 H 115 Troponin I 0.021 B-Natriuretic Peptide > 3280 H* Total Protein 6.4 5.8 Albumin 3.7 3.3 L Globulin 2.7 2.5 Albumin/Globulin Ratio 1.4 1.3 Triglycerides 90 Cholesterol 100 L LDL Cholesterol, Calc 33 HDL Cholesterol 49 Cholesterol/HDL Ratio 2.0 L TSH 4.02 Ur Collection Type Catheter Urine Color Yellow Urine Clarity Turbid A Urine pH 7.5 H Ur Specific [place] 1.023 Urine Protein 3+ A Urine Glucose (UA) 2+ A Urine Ketones Negative Urine Blood 1+ A Urine Nitrite Negative Urine Bilirubin Negative Urine Urobilinogen (Auto) Negative Ur Leukocyte Esterase Positive Urine RBC 80 H Urine WBC 181 H Ur Squamous Epith Cells 1 Urine Bacteria 3+ A Urine Opiates Screen Negative Urine Fentanyl Screen Negative Ur Barbiturates Screen Negative U Amphetamin/Meth Scrn Negative U Benzodiazepines Scrn Negative U Cocaine Metab Screen Negative U Marijuana (THC) Screen Negative Ethyl Alcohol < 3.0 Quality Measures Quality Measures none Advance care planning discussed with:: patient, spouse and child Assessment & Plan Assessment Current Active Medications: Generic Name Dose Route Start Last Admin Trade Name Freq PRN Reason Stop Dose Admin Acetaminophen 650 mg 05/01/25 13:51 Acetaminophen 325 Mg Tablet PO 05/31/25 13:50 Q6H PRN PAIN OR FEVER > 101 Aspirin 81 mg 05/02/25 09:00 05/02/25 07:53 Aspirin Ec 81 Mg Tabec PO 06/01/25 08:59 81 mg QDAY ANDRES Administration Atorvastatin Calcium 80 mg 05/01/25 21:00 05/01/25 20:07 Atorvastatin Calcium 20 Mg Tablet PO 05/31/25 20:59 80 mg HS ANDRES Administration Carvedilol 6.25 mg 05/01/25 21:00 05/01/25 20:07 Carvedilol 3.125 Mg Tablet PO 05/31/25 20:59 6.25 mg BIDWM ANDRES Administration Clopidogrel Bisulfate 75 mg 05/02/25 09:00 05/02/25 10:00 Clopidogrel Bisulfate 75 Mg Tablet PO 06/01/25 08:59 75 mg QDAY ANDRES Administration Dextrose 25 ml 05/01/25 13:59 Dextrose 50%-Water Inj 50 Ml Syringe IV 05/31/25 13:58 Q15MIN PRN BG 50-70 responsive npo pt Dextrose 50 ml 05/01/25 13:59 Dextrose 50%-Water Inj 50 Ml Syringe IV 05/31/25 13:58 Q15MIN PRN BG <50 OR BG <70 & pt unresponsive Glucagon 1 mg 05/01/25 13:59 Glucagon Inj 1 Mg Vial IM Q15MIN PRN BG <70, and no IV access Hydralazine HCl 50 mg 05/02/25 09:00 05/02/25 10:05 Hydralazine Hcl 25 Mg Tablet PO 06/01/25 08:59 50 mg BID ANDRES Administration Ceftriaxone Sodium/Dextrose 1 gm in 50 mls @ 100 mls/hr 05/02/25 10:08 Rocephin/D5w 1gm Iv Premix IV 05/09/25 10:07 QDAY ANDRES Insulin Human Lispro 0 unit 05/01/25 17:00 05/02/25 07:12 Insulin Lispro (Admelog) 1 Unit/0.01 Ml Unit SC 05/31/25 16:59 Not Given AC [facility] Protocol Labetalol HCl 10 mg 05/01/25 14:04 05/02/25 00:06 Labetalol Inj 5 Mg/Ml Vial 20 Ml IVP 05/31/25 13:59 10 mg Q6H PRN Administration SBP>170, DBP>110, hold if HR< Levothyroxine Sodium 50 mcg 05/02/25 06:00 05/02/25 05:17 Levothyroxine Sodium 25 Mcg Tablet PO 06/01/25 05:59 50 mcg ACBR ANDRES Administration Losartan Potassium 25 mg 05/02/25 09:00 05/02/25 10:19 Losartan Potassium 25 Mg Tablet PO 06/01/25 08:59 25 mg QDAY ANDRES Administration Ondansetron HCl 4 mg 05/01/25 10:14 Ondansetron Inj 2 Mg/Ml Inj 2 Ml IVP 05/31/25 10:13 Q4HR PRN NAUSEA OR VOMITING Pantoprazole Sodium 40 mg 05/02/25 09:00 05/02/25 07:53 Pantoprazole 40 Mg Tablet PO 06/01/25 08:59 40 mg QDAY ANDRES Administration Sennosides 1 tab 05/02/25 09:00 05/02/25 10:18 Senna Tablet PO 06/01/25 08:59 1 tab QDAY ANDRES Administration Protocol Plan Michelle Rodrigues is a 69-year-old female with a past medical history of HFpEF (EF 50 to 55%, 02/2025), recent ESRD on HD M/W/F (follows Dr. Jean), end-stage liver disease with history of esophageal varices status post band ligation, type 2 diabetes mellitus, hypertension, hyperlipidemia, and hypothyroidism who is admitted for further work-up for CVA. #Left parietal lobe infarcts #Slurred speech, slow speech #Right upper extremity paresthesia, resolved Presents more than 24 hours after symptom onset that includes right upper extremity paresthesia that is now resolved but persistent slurred and slow speech. CT head and CTA head/neck negative for any acute abnormalities. EKG showed NSR with heart rate in 60s but QTc 506. No history of strokes in the past but does have risk factors. MRI did show left parietal lobe infarcts. A1c 7.0%, TSH wnl. ? In-house neurology consulted, appreciate recommendations ? Follow-up echo ? Aspirin 81 mg daily, plavix 75 mg daily, atorvastatin 80 mg daily ? Labetalol 10 mg IV as needed for SBP >170 or DBP >110 ? Neurocheck every 4 hour, HOB elevated ? Speech therapy states can continue with dysphagia 3 diet ? Physical therapy recommends to continue further rehab but not interested so recommending home health PT and ST services #HFpEF (EF 50 to 55%, 02/2025) Although BNP elevated, patient has ESRD and does not appear in acute exacerbation that she is on room air and does not have lower extremity edema. ? Carvedilol 6.25 mg p.o. twice daily with meals ? Losartan 25 mg daily #ESRD on HD M/W/F ? Follows Dr. Jean outpatient and consulted for hemodialysis #Type 2 diabetes mellitus A1c 03/2024 7.2%. A1c 7.0% on 04/2025. ? SSI ? Hypoglycemic protocol in place #Hypertension ? Coreg 6.25 mg p.o. twice daily ? Hydralazine 50 mg p.o. twice daily ? Losartan 25 mg p.o. daily ? Labetalol 10 mg IV as needed #Hyperlipidemia ? Atorvastatin 80 mg daily #Hypothyroidism ? Levothyroxine 50 mcg Hospital management: Disposition: CVA work-up, pending echo Diet: dysphagia 3 Lines: PIV DVT prophylaxis: SCDs GI prophylaxis: pantoprazole 40 mg po daily CODE STATUS: full code ----- Plan discussed with attending physician Dr. Amber Evangelista MD PGY-1 Internal Medicine Attending Provider Attestation/Addendum I have examined the patient, reviewed labs and imaging findings, discussed the case with the resident(s), and reviewed entered orders. I agree with the plan of care as outlined in this note, with these additional summaries/recommendations: Patient is a 69-year-old female with medical history of hyperlipidemia, vitamin D deficiency, ESRD, primary hypertension, ARIEL, hypothyroidism, GERD, HFpEF, and diabetes mellitus type 2 presents to [facility] emergency department on 05/01/2025 with chief complaints of right-sided weakness and decreased speech. Patient seen at bedside. No acute overnight events. Brain MRI completed which revealed small acute infarcts in the left parietal lobe. Patient diagnosed with acute/subacute CVA. Continue aspirin 81 mg p.o. daily, atorvastatin 80 mg p.o. at bedtime, and Plavix 75 mg p.o. daily. Continue to control vascular risk factors. A1c 7.0%. LDL at goal of 33. TSH within normal limits. Patient is pending echocardiogram with bubble study and physical therapy evaluation. Continue IV Rocephin for urinary tract infection. Urine culture pending and we will follow-up results when available. Inpatient nephrology following for ESRD and continue inpatient hemodialysis. Continue insulin sliding scale with Accu-Cheks for diabetes mellitus type 2. Target blood sugar of 140-180 while hospitalized. Continue home antihypertensives and we will titrate as needed. Continue home levothyroxine. Patient updated on the plan and in agreement. All questions answered to satisfaction. Please see residents note for additional details of management. Dr. Amber MD
--- NOTE | 2025-05-02 11:08 | PC.SS ---
SS follow up note; Echo pending, possible discharge home today.
[2025-05-02] MEDS: HEPARIN SOD INJ 1000 UNIT/ML VIAL 10 ML 3500 UNIT INDWELLCAT (11:27)
--- NOTE | 2025-05-02 12:20 | PC.NURSE ---
Dialysis completed for 3 hrs, tolerated well.? Respiration even and unlabored. Saturating at 94% room air.? Able to removed 2900 ml of fluid net.?BP elevated 172/71, Hydralazine 50 mg, Losartan 25 mg po for HTN given during HD but bp remains elevated. HR 69, Temp 98.4.? Pt back in her room.? Call light within reached. Report given to Lina MORROW.
[2025-05-02] MEDS: cefTRIAXone/D5w 1gm IV premix 1 GM/50 ML BAG IV (12:38)
[2025-05-02] MEDS: carVEDILOL 3.125 MG TABLET 6.25 MG PO ×2 (12:43→16:39)
--- NOTE | 2025-05-02 15:22 | PC.SS ---
SS follow up note; SS was contacted by JAYA Hurst, he informed SS that patient will need HH upon discharge. SS followed up with patient's daughter and she reported patient has a FWW and Rollator walker.
[2025-05-02] MEDS: INSULIN LISPRO (AdmeLOG) 1 UNIT/0.01 ML UNIT SC (16:39)
--- NOTE | 2025-05-02 17:24 | PC.PT ---
Patient is safe to ambulate to the bathroom and in the halls with a FWW and 1 staff assist. RN made aware.
[2025-05-02] MEDS: ATORVASTATIN CALCIUM 20 MG TABLET 80 MG PO (20:02)
--- NOTE | 2025-05-02 23:34 | PD.NEUROPROG ---
Documentation for date of: 05/02/25 Subjective Subjective Interval history: Seen in telemetry today with her at the bedside, no complaints, no weakness or sensory loss reported. Exam - Neurology Vital Signs Temp Pulse Resp BP Pulse Ox O2 Del Method O2 Flow Rate 96.9 F 68 21 H 167/78 H 98 Room Air 4 05/02/25 20:00 05/02/25 20:02 05/02/25 20:00 05/02/25 20:02 05/02/25 20:00 05/02/25 20:00 05/01/25 23:00 Narrative Exam GENERAL APPEARANCE: Well developed, well-nourished in no acute distress. HEENT: Normocephalic, atraumatic, extraocular movements intact. Pupils: Equal reacting to light and accommodation NECK: Supple, no JVD or bruits. CARDIOVASULAR: Heart: S1, S2 heard, regular without S3-S4 or murmur no rubs or gallops. LUNGS/CHEST: Clear to auscultation bilaterally. No rails, rhonchi, or wheezing. Normal inspection. ABDOMEN: Soft, nontender, with normal bowel sounds. No pulsatile masses. No rebound, rigidity, or guarding. Normal inspection and palpation. EXTREMITIES: Normal inspection and palpation. No edema, clubbing or cyanosis. SKIN: Warm and dry without rashes. Normal inspection. MUSCULOSKELETAL: No cervical, thoracic, lumbar or midline bony tenderness. Normal inspection. NEURO: Alert, awake and oriented x3. Cranial nerves: II through XII grossly intact. Speech and language: Normal with no dysarthria or dysphasia. Motor system: Tone and bulk: Normal: Strength: 5 out of 5 in all 4 extremities with exception of mildly restricted range of motion involving the left shoulder; No pronator drift noted. Deep tendon reflexes: 2+ bilaterally symmetrical. Plantar reflex: Downgoing bilaterally. Sensory system: Intact to all modalities of sensation bilaterally. Coordination: Intact to [id number] and styc-bame-evtr test bilaterally. No ataxia, no dysmetria, or dysdiadochokinesia noted. No intention tremors noted. Gait: normal. No signs of meningeal irritation noted. PSYCHIATRIC: normal mood and affect. Objective Labs 05/02/25 04:38 05/02/25 04:38 Labs: Laboratory Results - last 24 hr 05/02/25 05/02/25 03:12 04:38 WBC 7.7 RBC 2.97 L Hgb 9.0 L Hct 28.2 L MCV 95 MCH 30.3 MCHC 31.9 RDW Std Deviation 53.4 H Plt Count 305 D Neut % (Auto) 70 Lymph % (Auto) 18 [place] % (Auto) 7 Eos % (Auto) 4 Baso % (Auto) 1 Neut # (Auto) 5.3 Lymph # (Auto) 1.3 [place] # (Auto) 0.5 Eos # (Auto) 0.3 Baso # (Auto) 0.0 Immature Gran # (Auto) 0.11 H Absolute Nucleated RBC 0.00 Immature Gran % 1 H Nucleated RBC % 0 Sodium 134 L Potassium 4.4 Chloride 99 Carbon Dioxide 26.1 Anion Gap 9 BUN 18 Creatinine 2.4 H D Estim Creat Clear Calc 17.7 L eGFR 21 L BUN/Creatinine Ratio 8 L Glucose [address] Glu mg/dL 154 H Hemoglobin A1c 7.0 H Calculated Osmolality 271 L Calcium 8.2 L Corrected Calcium 8.8 Phosphorus 4.0 Magnesium 1.7 Total Bilirubin 0.3 AST 15 ALT 11 Alkaline Phosphatase 115 Total Protein 5.8 Albumin 3.3 L Globulin 2.5 Albumin/Globulin Ratio 1.3 TSH 4.02 Ur Collection Type Catheter Urine Color Yellow Urine Clarity Turbid A Urine pH 7.5 H Ur Specific [place] 1.023 Urine Protein 3+ A Urine Glucose (UA) 2+ A Urine Ketones Negative Urine Blood 1+ A Urine Nitrite Negative Urine Bilirubin Negative Urine Urobilinogen (Auto) Negative Ur Leukocyte Esterase Positive Urine RBC 80 H Urine WBC 181 H Ur Squamous Epith Cells 1 Urine Bacteria 3+ A Urine Opiates Screen Negative Urine Fentanyl Screen Negative Ur Barbiturates Screen Negative U Amphetamin/Meth Scrn Negative U Benzodiazepines Scrn Negative U Cocaine Metab Screen Negative U Marijuana (THC) Screen Negative Assessment & Plan Assessment and plan (1) CVA (cerebral vascular accident): Status: Acute Assessment and plan: with no focal deficit on exam MRI brain showed acute infarct in the left high parietal area Echo: Bubble study negative for any PFO or ASD. Consider MADIE if high index of clinical suspicion. Normal LV size and function. Estimated EF of 55 to 60%. Diastolic dysfunction present but could not be measured due to EA fusion. Normal RV size and function. RVSP moderately elevated at 50 mmHg. Mild to moderate TR and MR, mild MAC. Mild aortic valve sclerosis without stenosis. Trace pericardial effusion without any evidence of tamponade. Left pleural effusion noted. continue with ASA 81mg, Plavix and statin. (2) Hypertension: Status: Chronic Assessment and plan: under control on Carvedilol (3) CKD (chronic kidney disease): Status: Chronic Assessment and plan: stable (4) Hyperlipidemia: Status: Chronic Assessment and plan: on statin
[2025-05-03] VITALS (12 sets, daily range): BP systolic 129–180; BP diastolic 56–75; PULSE 61–68; RESP 18–22; TEMP 36.1–36.6; O2SAT 96–100; BMI 25.4
[2025-05-03] MEDS: LEVOTHYROXINE SODIUM 25 MCG TABLET 50 MCG PO (05:28)
[2025-05-03 06:00] LABS: Basophils % (Auto) 0 % (0-2.5); Eosinophils # (Auto) 0.4 Thou/mm3 (0.0-0.5); Eosinophils % (Auto) 6 % (0-10); Hematocrit 29.8 % (36.0-46.0); Hemoglobin 9.7 g/dL (12.0-16.0); Immature Granulocytes % (Auto) 1 % (0-0); Immature Granulocytes Auto 0.07 Thou/mm3 (0.00-0.00); Lymphocytes % (Auto) 26 % (10-50); Mean Corpuscular HGB Conc 32.6 g/dl (31.0-37.0); Mean Corpuscular Hemoglobin 30.1 pg (25.0-35.0); Mean Corpuscular Volume 93 fL (80-100); Monocytes # (Auto) 0.8 Thou/mm3 (0.0-0.8); Monocytes % (Auto) 10 % (0-12); Neutrophils # (Auto) 4.5 Thou/mm3 (1.8-7.7); Neutrophils % (Auto) 58 % (37-80); Nucleated Red Blood Cell % 0 /100 WBC (0); Platelet Count 202 Thou/mm3 (140-440); RDW Standard Deviation 52.7 fL (36.4-46.3); Red Blood Count 3.22 Miln/mm3 (4.00-5.20); White Blood Count 7.7 Thou/mm3 (3.6-11.0)
[2025-05-03 07:08] LABS: Alanine Aminotransferase 9 U/L (10-49); Albumin, Serum 3.4 gm/dL (3.4-4.8); Albumin/Globulin Ratio 1.4 (1.2-2.2); Alkaline Phosphatase 122 U/L (46-116); Anion Gap 10 (7-16); Aspartate Amino Transferase 15 U/L (0-34); BUN/Creatinine Ratio 8 Ratio (12-20); Bilirubin,Total 0.2 mg/dL (0.3-1.2); Blood Urea Nitrogen 21 mg/dL (9-23); Calcium 8.1 mg/dL (8.3-10.6); Calcium (Corrected) 8.6 mg/dL (8.5-10.1); Carbon Dioxide 24.7 mMol/L (20.0-31.0); Chloride 97 mMol/L (98-107); Creatinine (Component) 2.8 mg/dL (0.6-1.3); Estimated Creatinine Clearance 14.8 mL/min (>60); Globulin 2.5 gm/dL (2.3-3.5); Glucose 136 mg/dL (74-106); Magnesium 1.8 mg/dL (1.6-2.6); Osmolality,Calculated 269 (275-295); Phosphorous 4.2 mg/dL (2.4-5.1); Potassium 4.2 mMol/L (3.4-5.1); Sodium 132 mMol/L (136-145); Total Protein 5.9 gm/dL (5.7-8.2); eGFR 18 See Note
[2025-05-03] MEDS: LOSARTAN POTASSIUM 25 MG TABLET 50 MG PO (09:49)
[2025-05-03] MEDS: carVEDILOL 3.125 MG TABLET 6.25 MG PO (09:49)
[2025-05-03] MEDS: cefTRIAXone/D5w 1gm IV premix 1 GM/50 ML BAG IV (09:49)
[2025-05-03] MEDS: PANTOPRAZOLE 40 MG TABLET PO (09:50)
[2025-05-03] MEDS: ASPIRIN EC 81 MG TABEC PO (09:50)
[2025-05-03] MEDS: hydrALAZINE HCL 25 MG TABLET 50 MG PO (09:50)
[2025-05-03] MEDS: CLOPIDOGREL BISULFATE 75 MG TABLET PO (09:50)
[2025-05-03] MEDS: ISOSORBIDE ER MONONITRATE 30 MG TABCR PO (09:57)
[2025-05-03] MEDS: LABETALOL INJ 5 MG/ML VIAL 20 ML 10 MG IVP (09:58)
[2025-05-03] MEDS: SENNA TABLET 1 TAB PO (09:58)
--- NOTE | 2025-05-03 13:09 | PD.RESDS ---
Planned Discharge Date 05/03/25 DS: Providers Provider Date of admission: 05/01/25 13:51 Primary care physician: Physician No Primary/Family Admitting Provider: Castillo Clark MD Attending Provider on Admission: Castillo Clark MD Consults: 05/01/25 10:14 Consult to Neurology / Tele-Neurology Routine Comment: CVA >24 hours Consulting Provider: [facility] 05/01/25 13:22 Consult to Neurology / Tele-Neurology Stat Comment: Consulting Provider: Lloyd Chandra 05/01/25 13:55 Referral Physical Therapy Stat Comment: Physician Instructions: Referral Speech Therapy Stat Comment: 05/01/25 13:58 Consult to Nephrology Stat Comment: Consulting Provider: Mora Jean 05/01/25 17:25 Health [facility]ity Referral - Knowledge Deficit Routine Comment: Positive screening for knowledge deficit needs. Attending Provider on DC: Yaya Evangleista MD Discharging Provider: Yaya Evangelista MD DS: Diagnosis Problem List Completed Was Problem List Reviewed/Reconciled?: Yes Hospital Course Hospital Course Hospital course: Michelle Rodrigues is a 69-year-old female with a past medical history of HFpEF (EF 50 to 55%, 02/2025), recent ESRD on HD M// (follows Dr. Jean), end-stage liver disease with history of esophageal varices status post band ligation, type 2 diabetes mellitus, hypertension, hyperlipidemia, and hypothyroidism who presents on 05/01 for slurred speech, slow speech, and right upper extremity numbness after dialysis session the morning prior. Patient states that paresthesia resolved after approximately 30 minutes but slurred and slowed speech continue persist even during evaluation. She denies any other symptoms and has been did not notice any other abnormalities, including weakness, difficulty walking, nausea, vomiting, headaches, blurry vision. Given that symptoms has started over 24 hours ago, stroke alert was not called upon arrival to ED. In ED, vital signs showed BP 199/84 but otherwise saturating well on room air. CT head negative, CTA head/neck negative. She was started on aspirin, atorvastatin, and given symptom onset > 24 hours no permissive hypertension. MRI eventually obtained that showed small, acute left parietal lobe infarcts and plavix was also started. Echo was negative for bubble study, EF 55 to 60%, diastolic dysfunction present but cannot be measured due to EA fusion. PT evaluated patient and recommended further rehab but patient and family not interested so we will go home with PT. no acute events occurred, vital signs stable on discharge, CBC stable, and CMP stable in setting of ESRD. Diagnoses during admission: #Left parietal lobe infarcts #Slurred speech, slow speech #Right upper extremity paresthesia, resolved #HFpEF (EF 50 to 55%, 02/2025) #ESRD on HD M/W/F #Type 2 diabetes mellitus #Hypertension #Hyperlipidemia #Hypothyroidism Discharge instructions: ? Start taking aspirin 81 mg and plavix 75 mg daily ? Atorvastatin increased from 40 to 80 mg daily ? Losartan increased from 25 to 50 mg daily ? Take cephalexin 500 mg twice per day for four more days to complete antibiotic course for UTI ? Continue taking all other home medications as prescribed ? Follow-up with neurologist, Dr. Chandra, within 1-2 weeks of discharge ? Follow-up with PCP within 1-2 weeks of discharge ? If you do not have a PCP, you can follow-up at the [facility] (you can call [phone] to make an appointment) ? If you wish to follow-up with Dr. Evangelista, schedule appointment on Wednesday afternoons ? Return to ED if symptoms worsen or recur ----- Plan discussed with attending physician Dr. Amber Evangelista MD PGY-1 Internal Medicine Time Spent with Patient Time attestation: Total time spent providing and/or coordinating discharge services: Time spent: Greater than 30 minutes Quality: Stroke Pt Provided Written Stroke Discharge Instructions: Yes Home Health Home Health Referral Orders: 05/03/25 07:49 Home Health Referral Routine Reason For Exam: Physical therapy Home-Bound The patient must either because of illness or injury, need the aid of supportive devices such as crutches, canes, wheelchairs, and walkers; the use of special transportation; or the assistance of another person in order to leave their place of residence; OR have a condition such that leaving his or her home is medically contraindicated. In addition, the patient also meets the following criteria: patient is normally unable to leave the home and leaving home requires considerable taxing effort. Addendum to Home Health Certification Practitioner's Certification: I certify that the patient has been under my care in the hospital and the care of attending physician (see below). We had a [id number]-[id number] encounter on (see date below). My clinical findings indicate that the patient is home bound per the above criteria and the Home Health Services noted in these orders are medically necessary. The primary reason for the [id number] encounter is related to the fact that the patient requires home health services. Date Certifying Apmi-cf-Fexd Physician Encounter: 05/01/25 Physician's Name who will Assume Oversight for HH Services: Mundo Allen DATA INTEGRITY ANALYST - Community Resources: No PT to Evaluate: Yes PT to evaluate and provide a treatmnet plan to increase patient's mobility and strength. Wound Care: No IV Therapy: No RN Safety Evaluation: Yes RN to evaluate and create a plan of care that will produce positive outcomes. Palliative Treatment: No Palliative treatment and evaluate the need for hospice. Home Health Aide - Personal Care: No Home Health Aide to assist with any ADL's. Exam Vital Signs Temp Pulse Resp BP Pulse Ox O2 Del Method O2 Flow Rate 97.0 F 61 18 168/56 H 100 Room Air 4 05/03/25 12:00 05/03/25 12:05/03/25 12:05/03/25 12:05/03/25 12:05/03/25 12:05/01/25 23:00 Narrative Exam General: alert, answering questions appropriately, no acute distress HEENT: NC/AT, mucous membranes moist, bilateral sclera anicteric Cardiovascular: regular rate and rhythm, S1/S2 present, no murmurs appreciated Pulmonary: clear to auscultation bilaterally, no rales/rhonchi/wheezes Abdominal: soft, non-tender, non-distended, no rebound/guarding, normal bowel sounds present Musculoskeletal: normal ROM, no peripheral edema Skin: warm and dry, intact, no rashes Neuro: - Alert, answering questions appropriately but slurred and speaks slowly - Strength 5/5 in upper and lower extremities bilaterally - Sensation intact in upper and lower extremities bilaterally - CN II-XII grossly intact Discharge Plan Plan Patient Disposition: Home w/HOME HEALTH Care Plan Goals: ? Comience a adi aspirina 81 mg y Plavix 75 mg al d?a. ? Aumento de atorvastatina de 40 a 80 mg al d?a. ? Aumento de losart?n de 25 a 50 mg al d?a. ? [place] cefalexina 500 mg dos veces al d?a fadumo cuatro d?as m?s para completar el tratamiento con antibi?ticos para la infecci?n urinaria. ? Contin?e tomando todos los dem?s medicamentos que carlotta en casa seg?n lo prescrito. ? Gwyn johann con la neur?loga Dr. Chandra dentro de 1 a 2 semanas despu?s del myriam. ? Gwyn johann con motley m?dico de cabecera dentro de 1 a 2 semanas despu?s del myriam. ? Si no tiene un m?dico de cabecera, puede realizar un seguimiento en el [facility]?aj de [place] (puede llamar al [phone] para programar gretta johann). ? Si desea un seguimiento con el Dr. Evangelista, programe gretta johann los mi?rcoles por la tarde. ? Regrese a urgencias si los s?ntomas empeoran o reaparecen. ? Start taking aspirin 81 mg and plavix 75 mg daily ? Atorvastatin increased from 40 to 80 mg daily ? Losartan increased from 25 to 50 mg daily ? Take cephalexin 500 mg twice per day for four more days to complete antibiotic course for UTI ? Continue taking all other home medications as prescribed ? Follow-up with neurologist, Dr. Chandra, within 1-2 weeks of discharge ? Follow-up with PCP within 1-2 weeks of discharge ? If you do not have a PCP, you can follow-up at the [facility] (you can call [phone] to make an appointment) ? If you wish to follow-up with Dr. Evangelista, schedule appointment on Wednesday afternoons ? Return to ED if symptoms worsen or recur Prescriptions/Referrals Prescriptions/Med Rec: New aspirin 81 mg tablet 81 mg PO QDAY 30 Days Qty: 30 0RF atorvastatin 80 mg tablet 80 mg PO HS 30 Days Qty: 30 0RF clopidogrel 75 mg Tablet 75 mg PO QDAY 30 Days Qty: 30 0RF cephalexin 500 mg capsule 500 mg PO BID 4 Days Qty: 8 0RF losartan 25 mg Tablet 50 mg PO QDAY 30 Days Qty: 60 0RF Continued levothyroxine 50 mcg capsule 50 mcg PO QDAY carvedilol 6.25 mg tablet 6.25 mg PO BID MDD 12.5 mg Qty: 60 2RF Rx Instructions: must administer with a meal/food (DME) lancet-gluc alkea-tcbtmd-vocur Kit See Rx Instructions .Route Qty: 1 0RF Rx Instructions: As directed (DME) pen needle, diabetic [BD Ultra-Fine Orig Pen Needle] 29 gauge x 1/2 needle See Rx Instructions .Route Qty: 100 0RF Rx Instructions: As directed (DME) Accu-Chek Guide test strips Strip See Rx Instructions .Route Qty: 100 0RF Rx Instructions: As directed pantoprazole 40 mg tablet,delayed release (DR/EC) 40 mg PO QDAY Qty: 30 0RF Januvia 25 mg tablet 25 mg PO QDAY Qty: 30 0RF hydralazine 50 mg tablet 50 mg PO BID Patient Comments: TAKE 1 TABLET BY MOUTH TWICE A DAY WITH FOOD x30 days isosorbide mononitrate 30 mg tablet extended release 24 hr 30 mg PO QDAY Patient Comments: TAKE 1 TABLET BY MOUTH EVERY DAY IN THE MORNING FOR 3 MONTHS B complex-vitamin C-folic acid 0.8 mg tablet 1 tab PO QDAY Discontinued atorvastatin 40 mg tablet 40 mg PO QDAY ferrous sulfate 325 mg (65 mg iron) tablet 325 mg PO DAILY sevelamer carbonate 800 mg tablet 800 mg PO .with meals calcium acetate 667 mg tablet 667 mg PO BID Patient Comments: TAKE 1 TABLET BY MOUTH TWICE A DAY WITH MEALS FOR 60 DAYS calcitriol 0.25 mcg capsule 0.25 mcg PO MWF Patient Comments: TAKE 1 TABLET BY MOUTH WEDNESDAY , WEDNESDAY , WEDNESDAY sodium bicarbonate 650 mg tablet 650 mg PO BID Patient Comments: TAKE 1 TABLET BY MOUTH TWICE A DAY DIRECTED ondansetron 4 mg tablet,disintegrating 4 mg PO Q8H Qty: 10 0RF losartan 25 mg tablet 25 mg PO QDAY Patient Comments: TAKE 1 TABLET BY MOUTH EVERY DAY FOR 90 DAYS furosemide 40 mg tablet 40 mg PO QDAY Patient Comments: TAKE 1 TABLET BY MOUTH q day x90 days. Referrals: No Primary/Family,Physician [Primary Care Provider] - Patient/Caregiver Discharge Instructions Education Materials: Symptoms of Stroke, Stroke: Taking Medicines, Stroke: Resources and Support, Stroke: Self-Care, Stroke Self Care After, Stroke Prevention Eating Healthy, Stroke Prevention Activity Print Language: Latvian Stand Alone Forms: [employer] Award Info., Patient Portal Info Letter Discharge Order Discharge Orders: Discharge (Routine); Ordered 05/03/25 Ordered By: Yaya Evangelista Quality Discharge Quality Measures VTE prophylaxis MD Attestestation MD Attestation I have examined the patient, reviewed labs and imaging findings, discussed the case with the resident(s), and reviewed entered orders. I agree with the plan of care as outlined in this note. Time Spent: [address] Amber MD
[2025-05-03] MEDS: hydrALAZINE INJ 20 MG/ML VIAL 10 MG IVP (13:53)
--- NOTE | 2025-05-03 23:23 | PD.VPROG1 ---
Telemedicine visit statement This visit was conducted with the use of interactive audio and video telecommunications system that permits real time communication between the patient and the provider. Patient's verbal consent for virtual visit was obtained on 05/03/25 at 2323. Documentation for date of: 05/03/25 Subjective Subjective Interval history: patient was in telemetry today, no new symptoms/recurrence reported. No complaints. Virtual exam Vital Signs Temp Pulse Resp BP Pulse Ox O2 Del Method O2 Flow Rate 97.0 F 68 18 129/58 L 100 Room Air 4 05/03/25 12:00 05/03/25 13:53 05/03/25 12:00 05/03/25 14:08 05/03/25 12:00 05/03/25 12:00 05/01/25 23:00 Objective Labs 05/03/25 04:41 05/03/25 04:41 Labs: Laboratory Results - last 24 hr 05/03/25 04:41 WBC 7.7 RBC 3.22 L Hgb 9.7 L Hct 29.8 L MCV 93 MCH 30.1 MCHC 32.6 RDW Std Deviation 52.7 H Plt Count 202 D Neut % (Auto) 58 Lymph % (Auto) 26 [place] % (Auto) 10 Eos % (Auto) 6 Baso % (Auto) 0 Neut # (Auto) 4.5 Lymph # (Auto) 2.0 [place] # (Auto) 0.8 Eos # (Auto) 0.4 Baso # (Auto) 0.0 Immature Gran # (Auto) 0.07 H Absolute Nucleated RBC 0.00 Immature Gran % 1 H Nucleated RBC % 0 Sodium 132 L Potassium 4.2 Chloride 97 L Carbon Dioxide 24.7 Anion Gap 10 BUN 21 Creatinine 2.8 H Estim Creat Clear Calc 14.8 L eGFR 18 L BUN/Creatinine Ratio 8 L Glucose 136 H Calculated Osmolality 269 L Calcium 8.1 L Corrected Calcium 8.6 Phosphorus 4.2 Magnesium 1.8 Total Bilirubin 0.2 L AST 15 ALT 9 L Alkaline Phosphatase 122 H Total Protein 5.9 Albumin 3.4 Globulin 2.5 Albumin/Globulin Ratio 1.4 Assessment & Plan Problem List (1) CVA (cerebral vascular accident): Status: Acute Assessment and plan: Patient presented with right hemiparesis. MRI brain: Small acute infarcts in the left parietal lobe MRA carotid images no critical carotid stenoses. MRA brain images no large vessel occlusions. consider plavix 75 mg for better prophylaxis with close monitoring for any bleeding and statin (2) Hypertension: Status: Chronic Assessment and plan: consider aggressive BP control from am (3) CKD (chronic kidney disease): Status: Chronic Assessment and plan: continue to monitor closely, avoid nephrotoxic drugs (4) Hyperlipidemia: Status: Chronic Assessment and plan: on statin
--- NOTE | 2025-05-05 18:30 | PC.CC ---
Addendum entered by Melissa Becker RN 05/05/25 18:37: HH referral was sent by [facility] transfer nurse yesterday. Karla accepted the pt. Booked Karla. Start of care date is 05/07/25. Original Note: Karla accepted the pt. Booked Karla. Start of care date is 05/07/25.
== END 2025-05-03 14:35 | disposition home health service (06) | DRG 45 ==
LOC: SERX 13:24 → SERHOLD 14:17 → S2NX 16:50
PROVIDERS: Student in an Organized Health Care Education/Training Program; Admitting Provider Student in an Organized Health Care Education/Training Program; Emergency Provider Family Medicine; Visit Provider Student in an Organized Health Care Education/Training Program
DX: I63.9 Cerebral infarction, unspecified (principal); I13.2 Hypertensive heart and chronic kidney disease with heart failure and with stage 5 chronic kidney disease, or end stage renal disease; I50.32 Chronic diastolic (congestive) heart failure; E03.9 Hypothyroidism, unspecified; G81.91 Hemiplegia, unspecified affecting right dominant side; R29.702 NIHSS score 2; E78.5 Hyperlipidemia, unspecified; R47.81 Slurred speech; N18.6 End stage renal disease; E11.22 Type 2 diabetes mellitus with diabetic chronic kidney disease; K72.10 Chronic hepatic failure without coma; K74.60 Unspecified cirrhosis of liver; N39.0 Urinary tract infection, site not specified; Z79.02 Long term (current) use of antithrombotics/antiplatelets; I35.8 Other nonrheumatic aortic valve disorders; Z79.4 Long term (current) use of insulin; Z79.82 Long term (current) use of aspirin; Z79.899 Other long term (current) drug therapy; Z99.2 Dependence on renal dialysis
CPT/HCPCS: 36415; 70450; 70496; 70498; 70544; 80053; 80061; 80307; 80320; 81001; 83036; 83735; 83880; 84100; 84443; 84484; 85025; 85610; 85730; 87077; 87081; 87086; 87186; 92523; 92610; 93005; 93306; 97162; 99285; A4649; J0360; J0696; J1643; J1815; J3490; J7030; Q5106; Q9967; A9270; G0480; J1920